=== PATIENT | female | born 1955 | race African-American/Black ===

== ENCOUNTER 2019-10-19 12:58 | Outpatient (CLI) | payer OTHER, BC, SELFPAY ==
--- NOTE | ~2019-10-19 | DEXA_ITS ---
Bone Density Report Name: Judy Martínez Age: 63 Sex: Female Ethnicity: Black Date of : 1955 Indication: postmenopausal; height loss; hysterectomy; Referring Provider: CRYSTAL HERRERA Study: Bone densitometry was performed. Exam Date: October 19, 2019 Accession number: [id number] Bone Density: Region BMD T-score Z-score Classification AP Spine (L1-L4) 0.926 -1.1 -0.3 Osteopenia Femoral Neck (Left) 0.759 -0.8 -0.2 Normal Total Hip (Left) 0.831 -0.9 -0.4 Normal Total Hip Bilateral Avg 0.819 -1.0 -0.5 Osteopenia Femoral Neck (Right) 0.740 -1.0 -0.3 Normal Total Hip (Right) 0.806 -1.1 -0.6 Osteopenia World Health Organization criteria for BMD impression classify patients as: Normal (T-score at or above -1.0), Osteopenia (T-score between -1.0 and -2.5), or Osteoporosis (T-score at or below -2.5). 10-year Fracture Risk(1): Major Osteoporotic Fracture 3.3% Hip Fracture 0.2% Reported Risk Factors: [place] ([place]), Neck BMD=0.740, BMI=30.6 (1) FRAX(R) Version 3.08. Fracture probability calculated for an untreated patient. Fracture probability may be lower if the patient has received treatment. Clinical Information Provided by Patient: Has the following medical conditions: Hysterectomy Patient maximum height was 67 Menopause Age: 42 No regular weight bearing exercise Drinks caffeinated beverages Onset of menses at age 14 Number of children 3 Impression: The patient has low bone mass, based on the Total Spine T-score. The patient has an estimated ten-year risk of hip fracture of 0.2% and an estimated ten-year risk of major fracture of 3.3%, based on the WHO FRAX algorithm. Discussion: BONE DENSITY IS LOW AT ONE OR MORE SKELETAL SITES. This patient's lowest T-score is low at one or more skeletal sites. It meets the World Health Organization's (WHO) criteria for ?low bone mass? (T-score between -1.0 and -2.5). The patient's 10-year risk of fracture as calculated by FRAX is less than the threshold where pharmacological therapy is recommended by the National Osteoporosis Foundation (NOF). However, all treatment decisions require clinical judgment and consideration of individual patient factors, including patient preferences, comorbidities, previous drug use, risk factors not captured in the FRAX model (e.g., frailty, falls, vitamin D deficiency, increased bone turnover, interval significant decline in bone density) and possible under or overestimation of fracture risk by FRAX. The patient should follow a healthful lifestyle (good nutrition with adequate calcium and vitamin D, and appropriate weight-bearing exercise). Follow-Up: Consider repeating this study in 2 to 3 years to reassess this patient's status, or sooner if there is some new clinical indication. Reported by: [facility] on 10/19/2019 1:28:00 PM. ____
== END 2019-10-19 12:59 | disposition home or self-care (01) ==
LOC: ANHIMG 13:05
PROVIDERS: Visit Provider Family Medicine
DX: M85.88 Other specified disorders of bone density and structure, other site (principal); M85.852 Other specified disorders of bone density and structure, left thigh; M85.851 Other specified disorders of bone density and structure, right thigh
CPT/HCPCS: 77080

== ENCOUNTER 2019-11-24 12:05 | Outpatient (CLI) | payer OTHER, BC, SELFPAY ==
[2019-11-24 12:29] LABS: Basophils Percent Auto 0.4 % (0.2-1.2); Eosinophils Absolute Auto 0.1 K/mm3 (0-0.3); Eosinophils Percent Auto 1.8 % (0-4.4); Hematocrit 42.5 % (37.0-47.0); Hemoglobin 13.5 g/dL (12.0-15.0); Immature Granulocyte Absolute 0.02 K/mm3 (0.00-0.031); Immature Granulocyte Percent A 0.3 % (0-0.5); Lymphocytes Absolute Auto 2.15 K/mm3 (0.9-3.2); Lymphocytes Percent Auto 29.9 % (18.3-44.2); Mean Corpuscular HGB Conc 31.8 g/dl (32-36); Mean Corpuscular Hemoglobin 26.7 pg (26-34); Mean Platelet Volume 9.8 fl (7.4-10.4); Monocytes Absolute Auto 0.4 K/mm3 (0.1-0.6); Neutrophils Absolute Auto 4.4 K/mm3 (1.3-6.7); Neutrophils Percent Auto 61.6 % (45.5-73.1); Platelet Count Result 290 k/mm3 (150-375); Red Blood Count 5.06 M/mm3 (4.2-5.4); White Blood Count 7.2 K/mm3 (4.5-10.0)
[2019-11-24 12:38] LABS: Hemoglobin A1C 7.7 % (<5.7)
[2019-11-24 12:41] LABS: Anion Gap 6 mmol/L (8-16); Blood Urea Nitrogen 15 mg/dL (7-17); Calcium 9.3 mg/dL (8.4-10.2); Carbon Dioxide 29 mmol/L (22-30); Chloride 100 mmol/L (98-107); Cholesterol 215 mg/dL (0-200); Estimated Glomerular Filt Rate > 60; Glucose 98 mg/dL (65-105); HDL Direct 64 mg/dL; Potassium 3.9 mmol/L (3.4-5.0); Sodium 135 mmol/L (137-145); Triglycerides 131 mg/dL (<150)
[2019-11-24 12:52] LABS: LDL Cholesterol Direct 108 mg/dL
[2019-11-24 12:57] LABS: MALB Creatinine Ratio 8.1 mg/g (0-30); Microalbumin Urine Random 9.4 mg/L (0-16.7)
== END 2019-11-24 12:06 | disposition home or self-care (01) ==
PROVIDERS: Visit Provider Family Medicine
DX: I10 Essential (primary) hypertension (principal); E11.65 Type 2 diabetes mellitus with hyperglycemia; Z13.220 Encounter for screening for lipoid disorders
CPT/HCPCS: 36415; 80048; 80061; 82043; 83036; 85025

== ENCOUNTER 2020-01-05 14:59 | Outpatient (CLI) | payer BC, OTHER, SELFPAY ==
--- NOTE | ~2020-01-05 | MM_ITS ---
EXAMINATION: MM screening raul BI w jerel HISTORY: Screening mammogram TECHNIQUE: Craniocaudal and mediolateral oblique 3-D tomosynthesis images were obtained and synthetic 2-D images were generated. CAD analysis was submitted and interpreted. COMPARISON: No prior mammogram is available for comparison at this institution. BREAST PARENCHYMAL COMPOSITION: There are scattered areas of fibroglandular density. FINDINGS: There is no evidence of suspicious mass, calcification, or architectural distortion to sugg est malignancy in either breast. There has been no suspicious interval change. IMPRESSION: 1. No mammographic evidence of malignancy. 2. Recommend routine screening mammography in one year. BI-RADS Category 1: Negative Reviewed, dictated and finalized at location A.
== END 2020-01-05 15:00 | disposition home or self-care (01) ==
LOC: ANHIMG 15:01
PROVIDERS: Visit Provider Family Medicine
DX: Z12.31 Encounter for screening mammogram for malignant neoplasm of breast (principal)
CPT/HCPCS: 77063; 77067

== ENCOUNTER 2020-03-23 22:15 | Emergency (ER) | payer OTHER, BC, SELFPAY ==
--- NOTE | ~2020-03-23 | XR_ITS ---
EXAMINATION: XR abdomen/kub 1V INDICATION: Abdominal fullness TECHNIQUE: Supine views of the abdomen were obtained on 2 radiographs. COMPARISON: 09/17/2010 FINDINGS: A large volume of colonic stool is present. No dilated loops of bowel are evident. Lumbar l evocurvature is noted. The visualized lung bases are clear. There is moderate right and severe left h ip osteoarthritis. IMPRESSION: 1. Constipation. Reviewed, dictated and finalized at location A. ZING MACHINE BACK TENDER IMPRESSION: 1. Constipation.
--- NOTE | ~2020-03-23 | XR_ITS ---
EXAMINATION: XR chest 1V INDICATION: Shortness of breath TECHNIQUE: Portable AP chest at 2257 hours COMPARISON: 09/14/2018 FINDINGS: The lungs are free of acute opacities. The heart size is normal. There is no pleural effusi on or pneumothorax. IMPRESSION: 1. No acute cardiopulmonary abnormality. Reviewed, dictated and finalized at location A. MARKER
[2020-03-23 22:21] VITALS: BP 164/87; PULSE 75; RESP 18; O2SAT 98
--- NOTE | 2020-03-23 22:23 | ED.GENADULT ---
HPI - General Adult General Chief complaint: Shortness of Breath/Dyspnea <Nadeen Wellington PA-C - Last Filed: 03/24/20 00:04> Stated complaint: sob <Nadeen Wellington PA-C - Last Filed: 03/24/20 00:04> Time Seen by Provider: 03/23/20 22:20 <Nadeen Wellington PA-C - Last Filed: 03/24/20 00:04> History of Present Illness HPI narrative: 64-year-old female who is here because she has for the past 24 hours felt like she could not catch her breath. She states that she was afraid to lie flat to sleep. She has been sleeping propped on 3 pillows for at least a year she says because she lost a friend who in his sleep and she was afraid that would happen to her. But today she fell that she really could not lay flat. She also noted that her blood sugar did not go down after she took her medicine today. She denies any fever, cough, wheezing, or chest pain. She is also complaining of increased fullness in her abdomen. She is urinating and had a normal bowel movement this morning. <Nadeen Wellington PA-C - Last Filed: 03/24/20 00:04> Onset (ago): hour(s) <Nadeen Wellington PA-C - Last Filed: 03/24/20 00:04> Treatments prior to arrival: none <KOBE Teran Last Filed: 03/24/20 00:04> Related Data Home medications: Home Medications Medication Instructions Recorded Confirmed albuterol sulfate 90 mcg/actuation 1 puff INHALATION Q4H PRN 05/17/19 12/27/19 aerosol inhaler carvedilol 12.5 mg tablet 12.5 mg PO Q12H 05/17/19 12/27/19 <KOBE Teran Last Filed: 03/24/20 00:04> Allergies/adverse reactions: Allergies Allergy/AdvReac Type Severity Reaction Status Date / Time No Known Allergies Allergy Verified 10/08/19 10:24 <KOBE Teran Last Filed: 03/24/20 00:04> Review of Systems Review of Systems: All systems reviewed & are unremarkable except as noted in HPI and below <Nadeen Wellington PA-C - Last Filed: 03/24/20 00:04> [facility] Past Medical History Medical History: Medical History (Updated 03/24/20 @ 00:03 by Nadeen Wellington PA-C) Essential (primary) hypertension Type 2 diabetes mellitus with hyperglycemia <Nadeen Wellington PA-C - Last Filed: 03/24/20 00:04> Family History Family History: Family History Mother Cerebrovascular accident Father Family history of heart disease in male family member before age 55 <Nadeen Wellington PA-C - Last Filed: 03/24/20 00:04> Social History Social History: Social History (Updated 03/23/20 @ 22:46 by Nadeen Wellington PA-C) Smoking status: Never smoker Alcohol intake: current Substance use: never Occupation/Education: occupation 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 Gender identity (if verbalized by the patient): Female <Nadeen Wellington PA-C - Last Filed: 03/24/20 00:04> Exam Const: General: no acute distress and alert <Nadeen Wellington PA-C - Last Filed: 03/24/20 00:04> Orientation/consciousness: patient oriented x3 <Nadeen Wellington PA-C - Last Filed: 03/24/20 00:04> HENMT: Head: normal to inspection <Nadeen Wellington PA-C - Last Filed: 03/24/20 00:04> Eyes: Conjunctivae: conjunctivae normal <Nadeen Wellington PA-C - Last Filed: 03/24/20 00:04> Pupils: Equal, round and reactive pupils present <Nadeen Wellington PA-C - Last Filed: 03/24/20 00:04> Resp: Effort & Inspection: normal respiratory effort <Nadeen Wellington PA-C - Last Filed: 03/24/20 00:04> Auscultation: diminished lung sounds on the right in the lower lung castro <Nadeen Wellington PA-C - Last Filed: 03/24/20 00:04> Other: otherwise clear <Nadeen Wellington PA-C - Last Filed: 03/24/20 00:04> Cardio: Rate: regular rate <Nadeen Wellington PA-C - Last Filed: 03/24/20 00:04> Rhythm: regular rhythm <KOBE Teran Last Filed: 03/24/20 00:04> GI: Inspection: distended <KOBE Teran Last Filed:
[2020-03-23 22:28] VITALS: O2SAT 98
--- NOTE | 2020-03-23 22:42 | ECG_ITS ---
Measurements Intervals [place] Rate: 67 P: 38 WA: 171 QRS: 0 QRSD: 101 T: 47 QT: 399 QTc: 421 Interpretive Statements SINUS RHYTHM BORDERLINE ST ABNORMALITY- HIGH LATERAL LEADS BASELINE WANDER- I, II BORDERLINE ECG Electronically Signed On 03-24-2020 6:57:09 VACUUM CLEANER OPERATOR by Rubén Ramirez D.O.
[2020-03-23 22:52] LABS: Basophils Percent Auto 0.4 % (0.2-1.2); Eosinophils Absolute Auto 0.2 K/mm3 (0-0.3); Eosinophils Percent Auto 2.3 % (0-4.4); Hematocrit 39.7 % (37.0-47.0); Hemoglobin 12.7 g/dL (12.0-15.0); Immature Granulocyte Absolute 0.02 K/mm3 (0.00-0.031); Immature Granulocyte Percent A 0.3 % (0-0.5); Lymphocytes Absolute Auto 2.94 K/mm3 (0.9-3.2); Lymphocytes Percent Auto 38.2 % (18.3-44.2); Mean Corpuscular Hemoglobin 26.5 pg (26-34); Mean Corpuscular Volume 82.7 fl (80-100); Mean Platelet Volume 9.4 fl (7.4-10.4); Monocytes Absolute Auto 0.7 K/mm3 (0.1-0.6); Monocytes Percent Auto 9.1 % (2.6-8.5); Neutrophils Absolute Auto 3.8 K/mm3 (1.3-6.7); Neutrophils Percent Auto 49.7 % (45.5-73.1); Platelet Count Result 299 k/mm3 (150-375); Red Cell Distribution Width 13.2 % (11.5-14.5); White Blood Count 7.7 K/mm3 (4.5-10.0)
[2020-03-23 23:00] VITALS: BP 150/81; PULSE 82; RESP 19; O2SAT 97
[2020-03-23 23:06] LABS: Alanine Aminotransferase 19 U/L (4-35); Albumin Level 3.8 g/dL (3.5-5.1); Alkaline Phosphatase 83 U/L (38-126); Anion Gap 8 mmol/L (8-16); Aspartate Amino Transferase 23 U/L (14-36); Bilirubin,Total 0.2 mg/dL (0.2-1.3); Blood Urea Nitrogen 16 mg/dL (7-17); Calcium 9.7 mg/dL (8.4-10.2); Carbon Dioxide 29 mmol/L (22-30); Chloride 102 mmol/L (98-107); Estimated CRCL calculation 77 ml/min; Estimated Glomerular Filt Rate > 60; Glucose 178 mg/dL (65-105); Sodium 139 mmol/L (137-145)
[2020-03-23 23:30] VITALS: BP 148/79; PULSE 74; RESP 17; O2SAT 98
[2020-03-23 23:33] VITALS: PULSE 75; RESP 14
[2020-03-23] MEDS: ALBUTEROL SULFATE NEB 2.5 MG/3 ML INH INHALATION (23:33)
[2020-03-23 23:43] VITALS: PULSE 76; RESP 18
[2020-03-24] VITALS: BP 172/85; PULSE 87; RESP 18; O2SAT 98
== END 2020-03-24 00:15 | disposition home or self-care (01) ==
PROVIDERS: Physician Assistant; Emergency Provider Emergency Medicine; PCP Family Medicine
DX: R09.81 Nasal congestion (principal); E11.65 Type 2 diabetes mellitus with hyperglycemia; I10 Essential (primary) hypertension; Z79.84 Long term (current) use of oral hypoglycemic drugs; R94.31 Abnormal electrocardiogram [ECG] [EKG]
CPT/HCPCS: 36415; 71045; 74018; 80053; 85025; 93005; 94640; 99283

== ENCOUNTER → 2020-05-18 09:39 | Outpatient (CLI) | payer OTHER, BC, SELFPAY ==
--- NOTE | ~2020-05-18 | XR_ITS ---
XR foot RT min 3V DATE: 05/18/2020 10:03 INDICATION: Right foot pain TECHNIQUE: 4 views COMPARISON: None FINDINGS: Plantar calcaneal enthesopathy, without erosive change or periostitis. Prominent joint space narrowing and spurring at the first metatarsophalangeal joint consistent with o steoarthritis. Diffuse osteopenia. No fracture, dislocation, periosteal reaction or bone destruction. IMPRESSION: Osteopenia Osteoarthritis at first metatarsophalangeal joint Plantar calcaneal enthesopathy Reviewed, dictated and finalized at location A. T FINISHER
== END ==
PROVIDERS: PCP Family Medicine; Visit Provider Family Medicine
DX: M85.871 Other specified disorders of bone density and structure, right ankle and foot (principal); M77.31 Calcaneal spur, right foot; M19.071 Primary osteoarthritis, right ankle and foot
CPT/HCPCS: 73630

== ENCOUNTER → 2020-10-11 14:24 | Outpatient (CLI) | payer BC, OTHER, SELFPAY ==
--- NOTE | ~2020-10-11 | XR_ITS ---
EXAMINATION: XR hip LT min 3V w AP pelvis DATE: 10/11/2020 14:43 INDICATION: Left hip pain. TECHNIQUE: An anteroposterior view of the pelvis and 2 views of left hip were obtained. COMPARISON: Left hip radiographs 11/22/2015 FINDINGS: There is lumbar levocurvature and mild spondylosis. No fracture. There is severe left hip o steoarthritis and mild right hip osteoarthritis. IMPRESSION: 1. Severe left hip osteoarthritis and mild right hip osteoarthritis. Reviewed, dictated and finalized at location A.
== END ==
PROVIDERS: PCP Family Medicine; Visit Provider Nurse Practitioner Family
DX: M16.12 Unilateral primary osteoarthritis, left hip (principal)
CPT/HCPCS: 73502

== ENCOUNTER 2021-02-16 14:31 | Outpatient (CLI) | payer BC, OTHER, SELFPAY ==
[2021-02-16 15:10] LABS: Anion Gap 11 mmol/L (8-16); Blood Urea Nitrogen 17 mg/dL (7-17); Calcium 9.6 mg/dL (8.4-10.2); Carbon Dioxide 22 mmol/L (22-30); Chloride 104 mmol/L (98-107); Cholesterol 217 mg/dL (0-200); Estimated Glomerular Filt Rate > 60; Glucose 227 mg/dL (65-110); HDL Direct 74 mg/dL; Potassium 4.4 mmol/L (3.4-5.0); Sodium 137 mmol/L (137-145); Triglycerides 285 mg/dL (<150)
[2021-02-16 15:11] LABS: Hemoglobin A1C 7.9 % (<5.7)
[2021-02-16 15:21] LABS: LDL Cholesterol Direct 82 mg/dL
== END 2021-02-16 14:32 | disposition home or self-care (01) ==
LOC: ANHLAB 14:34
PROVIDERS: PCP Family Medicine; Visit Provider Family Medicine
DX: E11.65 Type 2 diabetes mellitus with hyperglycemia (principal); I10 Essential (primary) hypertension; Z13.220 Encounter for screening for lipoid disorders
CPT/HCPCS: 36415; 80048; 80061; 83036

== ENCOUNTER 2021-09-25 07:17 | Outpatient (RCR) | payer BC, OTHER, SELFPAY | END 2021-12-11 10:41 | disposition home or self-care (01) | LOC: ANHDMC 07:17 | PROVIDERS: PCP Family Medicine; Visit Provider Family Medicine | DX: E11.65 Type 2 diabetes mellitus with hyperglycemia (principal) | CPT/HCPCS: 99199 ==

== ENCOUNTER 2022-01-31 15:34 | Outpatient (CLI) | payer BC, SELFPAY ==
--- NOTE | 2022-01-31 16:05 | ECG_ITS ---
Measurements Intervals [place] Rate: 68 P: 37 UT: 160 QRS: 17 QRSD: 95 T: 41 QT: 393 QTc: 420 Interpretive Statements SINUS RHYTHM NORMAL ECG COMPARED TO ECG 03/23/2020 23:08:39 NO SIGNIFICANT CHANGES Electronically Signed On 02-01-2022 13:52:00 CDT by Andry Howard M.D.
[2022-01-31 16:10] LABS: Hematocrit 40.8 % (37.0-47.0); Hemoglobin 12.9 g/dL (12.0-15.0)
[2022-01-31 16:25] LABS: Albumin Level 4.1 g/dL (3.5-5.1); Estimated Glomerular Filt Rate > 60; Glucose 178 mg/dL (65-110)
[2022-01-31 16:31] LABS: Urine Cotinine NEGATIVE
[2022-01-31 17:27] LABS: Hemoglobin A1C 8.7 % (<5.7)
== END 2022-01-31 15:35 | disposition home or self-care (01) ==
PROVIDERS: PCP Family Medicine; Visit Provider Orthopaedic Surgery
DX: M16.12 Unilateral primary osteoarthritis, left hip (principal); E11.65 Type 2 diabetes mellitus with hyperglycemia; I10 Essential (primary) hypertension; Z13.220 Encounter for screening for lipoid disorders
CPT/HCPCS: 80307; 82040; 82565; 82947; 83036; 85014; 85018; 93005

== ENCOUNTER 2022-07-24 10:39 | Outpatient (RCR) | payer BC, MEDICARE, SELFPAY | END 2022-10-14 08:51 | disposition home or self-care (01) | LOC: ANHDMC 10:39 | PROVIDERS: PCP Family Medicine; Visit Provider Family Medicine | DX: E11.65 Type 2 diabetes mellitus with hyperglycemia (principal); Z71.89 Other specified counseling | CPT/HCPCS: G0108 ==

== ENCOUNTER 2022-09-03 13:47 | Emergency (ER) | payer BC, MEDICARE, SELFPAY ==
--- NOTE | ~2022-09-03 | XR_ITS ---
EXAMINATION: XR knee LT min 4V DATE: 09/03/2022 14:35 INDICATION: Left knee pain. TECHNIQUE: 4 views of left knee were obtained. COMPARISON: None. FINDINGS: Bone alignment is normal. No fracture. There is mild osteoarthritis of medial and lateral c ompartments and moderate osteoarthritis of patellofemoral compartment. There is a moderate-sized knee joint effusion. IMPRESSION: 1. Moderate left knee osteoarthritis. 2. Moderate-sized left knee joint effusion. Reviewed, dictated and finalized at location A.
[2022-09-03 14:03] VITALS: BP 142/79; PULSE 87; RESP 20; TEMP 36.2; O2SAT 97
--- NOTE | 2022-09-03 15:25 | ED.EXTPRO ---
HPI - Extremity Problem General Chief complaint: Extremity Problem,Nontraumatic Stated complaint: left knee swelling Time Seen by Provider: 09/03/22 15:03 Source: patient Mode of arrival: ambulatory Limitations: no limitations History of Present Illness HPI Narrative: 66-year-old with a history of diabetes, osteoarthritis here with complaints of left knee pain for past 1 week patient states that she is scheduled for hip surgery on the left side now having more pain in her knee she thinks she is favoring the knee. She denies any fall. Patient states that she has been taking ibuprofen, Tylenol with very minimal relief. She states that she is having tough time walking. Complaint: joint paint (Left knee) Related Data Allergies Allergy/AdvReac Type Severity Reaction Status Date / Time No Known Allergies Allergy Verified 08/23/22 09:39 Review of Systems Review of Systems: All systems reviewed & are unremarkable except as noted in HPI and below Constitutional: Constitutional: Reports no additional constitutional complaints Eyes: Eyes: Reports no additional eye complaints ENT: Reports system reviewed and no additional complaints, except as documented Cardiovascular: Cardiovascular: Reports no additional cardiovascular complaints Respiratory: Respiratory: Reports no additional respiratory complaints Musculoskeletal: Musculoskeletal: Reports as per HPI Neurologic: Reports system reviewed and no additional complaints, except as documented PMFSH Past Medical History Medical History BMI 26.0-26.9,adult BMI 28.0-28.9,adult BMI 29.0-29.9,adult Constipation COVID-19 Essential (primary) hypertension PTSD (post-traumatic stress disorder) Right foot pain Type 2 diabetes mellitus with hyperglycemia Family History Family History Mother Cerebrovascular accident Cancer Tobacco abuse Father Family history of heart disease in male family member before age 55 Lung cancer Tobacco abuse Sibling No problems noted. Social History Social History Smoking status: Never smoker Second hand tobacco smoke exposure: Yes Alcohol intake: current Alcohol use details: 1-2 drinks per week. 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 HEAD: Normocephalic, atraumatic. EYES: PERRLA and EOMI. NECK: Supple. CHEST: Clear to auscultation. No respiratory distress. HEART: Regular rate and rhythm. No murmur heard. Normal peripheral pulses. EXTREMITIES: Normal range of motion. No edema. Examination of the left knee shows mild effusion moderate amount of pain with passive range of motion SKIN: Warm, dry, no rash. NEURO: No focal deficits. Alert and oriented x3. PSYCH: Normal mood and affect. Course Vital Signs Vital signs: Vital Signs Temperature 36.2 C L 09/03/22 14:03 Pulse Rate 87 09/03/22 14:03 Respiratory Rate 20 09/03/22 14:03 Blood Pressure 142/79 H 09/03/22 14:03 Pulse Oximetry 97 09/03/22 14:03 Oxygen Delivery Room Air 09/03/22 14:03 Temperature 36.2 C L 09/03/22 14:03 Pulse Rate 87 09/03/22 14:03 Respiratory Rate 20 09/03/22 14:03 Blood Pressure 142/79 H 09/03/22 14:03 Pulse Oximetry 97 09/03/22 14
== END 2022-09-03 15:50 | disposition home or self-care (01) ==
PROVIDERS: Emergency Provider Family Medicine; PCP Family Medicine
DX: M17.12 Unilateral primary osteoarthritis, left knee (principal); I10 Essential (primary) hypertension; E11.9 Type 2 diabetes mellitus without complications; Z86.16 Personal history of COVID-19; Z79.84 Long term (current) use of oral hypoglycemic drugs
CPT/HCPCS: 73564; 99283

== ENCOUNTER 2022-11-18 14:07 | Outpatient (CLI) | payer BC, MEDICARE, SELFPAY ==
--- NOTE | ~2022-11-18 | XR_ITS ---
EXAM: XR shoulder RT min 2V DATE: 11/18/2022 14:28 HISTORY: HX OF ROTATOR CUFF SURGERY/LIFTING INJURY 5 DAYS AGO . COMPARISON: 05/31/2016. FINDINGS: Soft tissue anchor in the proximal humerus. Decreased mineralization. Notch-like defect in the superolateral aspect of the humeral head, may represent an old Hill-Sachs fracture deformity claudia tomi degenerative change. No acute fracture or dislocation. No lytic or blastic lesion. Moderate AC janeen int and glenohumeral joint degenerative change. Calcific deposition in the superior cuff. No erosion or periosteal change. Soft tissues within normal limits. IMPRESSION: No acute osseous finding in the right shoulder. Polyarticular osteoarthritis and calcific rotator cuff tendinitis. Reviewed, dictated and finalized at location K.
== END 2022-11-18 14:08 | disposition home or self-care (01) ==
LOC: ANHIMG 14:10
PROVIDERS: PCP Family Medicine; Visit Provider Nurse Practitioner Family
DX: S49.90XA Unspecified injury of shoulder and upper arm, unspecified arm, initial encounter (principal); X58.XXXA Exposure to other specified factors, initial encounter; M19.011 Primary osteoarthritis, right shoulder
CPT/HCPCS: 73030

== ENCOUNTER 2022-12-25 14:55 | Outpatient (CLI) | payer BC, MEDICARE, SELFPAY ==
[2022-12-25 15:35] LABS: Alanine Aminotransferase 20 U/L (6-35); Albumin Level 4.2 g/dL (3.5-5.1); Alkaline Phosphatase 73 U/L (38-126); Anion Gap 4 mmol/L (8-16); Aspartate Amino Transferase 24 U/L (14-36); Bilirubin,Total 0.5 mg/dL (0.2-1.3); Blood Urea Nitrogen 15 mg/dL (7-17); Calcium 9.4 mg/dL (8.4-10.2); Carbon Dioxide 29 mmol/L (22-30); Chloride 105 mmol/L (98-107); Cholesterol 206 mg/dL (0-200); Estimated Glomerular Filt Rate > 60; Glucose 143 mg/dL (65-110); HDL Direct 65 mg/dL; Potassium 3.9 mmol/L (3.4-5.0); Sodium 138 mmol/L (137-145); Triglycerides 91 mg/dL (<150)
[2022-12-25 15:46] LABS: LDL Cholesterol Direct 95 mg/dL
[2022-12-25 16:31] LABS: Creatinine Urine 266.6 mg/dL
[2022-12-25 16:35] LABS: Microalbumin Urine Random 27.8 mg/L (0-16.7)
[2022-12-25 16:36] LABS: MALB Creatinine Ratio 10.4 mg/g (0-30)
[2022-12-31 18:20] LABS: C-Peptide 2.22 ng/mL (0.80-3.85)
== END 2022-12-25 14:56 | disposition home or self-care (01) ==
PROVIDERS: PCP Family Medicine; Visit Provider Internal Medicine
DX: E11.65 Type 2 diabetes mellitus with hyperglycemia (principal)
CPT/HCPCS: 36415; 80053; 80061; 82043; 84681

== ENCOUNTER 2023-09-23 02:28 | Day surgery (SDC) | payer OTHER, MEDICARE, SELFPAY ==
[2023-09-16 10:58] VITALS: BMI 28.2
[2023-09-23 11:05] VITALS: BP 152/91; PULSE 94; RESP 18; TEMP 36.6; O2SAT 100
[2023-09-23] MEDS: LACTATED RINGERS 1,000 ML 150 ML IV CONT (11:16)
[2023-09-23 11:19] LABS: Glucose Point of Care 103 mg/dl (65-105)
--- NOTE | 2023-09-23 12:07 | WPDANESEPPF ---
Anes - Initial Pre Proc Eval Procedure: Operation Date: 09/23/23 12:30 Proposed Procedures p Screening Colonoscopy - Dany Godinez MD Date/Time: 09/23/23 12:07 Surgeon: Dany Godinez MD Pre Op Diagnosis: neoplasm screening Patient Data Age: 67 Gender: F Height: 1.7 m Weight: 76 kg Last Vital Signs Temp 97.8 F 09/23/23 11:05 Pulse 94 09/23/23 11:05 Resp 18 09/23/23 11:05 BP 152/91 H 09/23/23 11:05 Pulse Ox 100 09/23/23 11:05 O2 Del Method Room Air 09/23/23 11:05 Allergies Allergy/AdvReac Type Severity Reaction Status Date / Time No Known Allergies Allergy Verified 09/23/23 11:03 Home Medications Medication Instructions Recorded Confirmed Type lancets (Coaguchek Lancets) #400 ea 12/25/22 06/17/23 Rx atorvastatin 20 mg tablet (Lipitor) 20 mg PO DAILY #90 tabs 06/17/23 09/16/23 Rx dapagliflozin propanediol 10 mg 10 mg PO DAILY #90 tabs 06/17/23 09/16/23 Rx tablet (Farxiga) lisinopril 2.5 mg tablet 2.5 mg PO DAILY #90 tabs 06/17/23 09/16/23 Rx tirzepatide 7.5 mg/0.5 mL 7.5 mg (0.5 mL) subcut WEEKLY #6 mL 07/08/23 09/23/23 Rx subcutaneous pen injector (Mounjaro) Laboratory Tests 09/23/23 11:11 POC Capillary Glucose 103 mg/dl (65-105) Patient hx anesthesia problems: none Family hx anesthesia problems: none Results Review: All pre-operative results and documents have been reviewed as part of the pre-operative evaluation. [facility] Past Medical History Medical History BMI 25.0-25.9,adult BMI 29.0-29.9,adult Constipation COVID-19 Essential (primary) hypertension Osteoarthritis of left knee PTSD (post-traumatic stress disorder) Right foot pain Type 2 diabetes mellitus with hyperglycemia Surgical History Surgical History History of bilateral salpingo-oophorectomy History of hysterectomy Family History Family History Mother Cancer Tobacco abuse Acute myocardial infarction Heart disease Hypertension Father Family history of heart disease in male family member before age 55 Lung cancer Tobacco abuse Sibling No problems noted. 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 Informed Consent: The patient's anesthetic plan and its attendant risks and benefits were discussed with the patient/family/POA. Questions were solicited and answers provided to the satisfaction of the patient/family/POA.
--- NOTE | 2023-09-23 12:14 | PM.HPGS ---
History of Present Illness History of Present Illness Consent: Risks, benefits, and alternatives have been discussed and questions answered. Patient agrees to proceed with procedure. Chief complaint: neoplasm screening Narrative: Judy Martínez is a 67 year old female here for colonoscopy, last one more than 10 years ago Review of Systems Review of Systems: All systems reviewed & are unremarkable except as noted in HPI and below PMFSH Past Medical History Medical History (Updated 09/23/23 @ 12:15 by Dany Godinez MD) BMI 25.0-25.9,adult BMI 29.0-29.9,adult Colon cancer screening Constipation COVID-19 Essential (primary) hypertension Osteoarthritis of left knee PTSD (post-traumatic stress disorder) Right foot pain Type 2 diabetes mellitus with hyperglycemia Surgical History Surgical History History of bilateral salpingo-oophorectomy History of hysterectomy Family History Family History Mother Cancer Tobacco abuse Acute myocardial infarction Heart disease Hypertension Father Family history of heart disease in male family member before age 55 Lung cancer Tobacco abuse Sibling No problems noted. 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[place] Gender identity (if verbalized by the patient): Female Spiritual care concerns: No Meds Home Medications and Allergies Home Medications Medication Instructions Recorded Confirmed Type lancets (Coaguchek Lancets) #400 ea 12/25/22 06/17/23 Rx atorvastatin 20 mg tablet (Lipitor) 20 mg PO DAILY #90 tabs 06/17/23 09/16/23 Rx dapagliflozin propanediol 10 mg 10 mg PO DAILY #90 tabs 06/17/23 09/16/23 Rx tablet (Farxiga) lisinopril 2.5 mg tablet 2.5 mg PO DAILY #90 tabs 06/17/23 09/16/23 Rx tirzepatide 7.5 mg/0.5 mL 7.5 mg (0.5 mL) subcut WEEKLY #6 mL 07/08/23 09/23/23 Rx subcutaneous pen injector (Mounjaro) Allergies Allergy/AdvReac Type Severity Reaction Status Date / Time No Known Allergies Allergy Verified 09/23/23 11:03 Vital Signs Vital Signs - 24 hr 09/23/23 11:05 Temperature 97.8 F Pulse Rate 94 Respiratory Rate 18 Blood Pressure 152/91 H Pulse Oximetry 100 Oxygen Delivery Room Air Exam Const: General: comfortable and no acute distress HENMT: Face/Nose/Sinus: Normal nares present Eyes: General: appearance normal, both eyes and all related structures Neck: Neck: no JVD Resp: Auscultation: clear to auscultation bilaterally Cardio: Rate: regular rate Rhythm: regular rhythm GI: Inspection: non-distended GI Palp: Yes Soft to palpation Skin: General skin exam: normal color Neuro: General: gait normal Speech: normal speech Extrem: General: normal to inspection Psych: Mental Status: mental status grossly normal Assessment and Plan Assessment and plan (1) Colon cancer screening: Code(s): Z12.11 - Encounter for screening for malignant neoplasm of colon Status: Acute Assessment and Plan: colonoscopy
[2023-09-23 12:42] VITALS: BP 116/65; PULSE 87; RESP 15; O2SAT 98
[2023-09-23 12:52] VITALS: BP 122/73; PULSE 80; RESP 20; O2SAT 100
[2023-09-23 13:02] VITALS: BP 151/82; PULSE 81; RESP 19; O2SAT 100
== END 2023-09-23 13:25 | disposition home or self-care (01) ==
PROVIDERS: PCP Family Medicine; Referring Provider Family Medicine; Visit Provider Internal Medicine Gastroenterology
PROC: 0DJD8ZZ Inspection of Lower Intestinal Tract, Via Natural or Artificial Opening Endoscopic (ICD-10-PCS; CPT 45378; principal; 2023-09-23 12:30)
DX: Z12.11 Encounter for screening for malignant neoplasm of colon (principal); D01.0 Carcinoma in situ of colon; D12.2 Benign neoplasm of ascending colon; D12.3 Benign neoplasm of transverse colon; D12.4 Benign neoplasm of descending colon; K64.8 Other hemorrhoids; I10 Essential (primary) hypertension; E11.9 Type 2 diabetes mellitus without complications; Z79.84 Long term (current) use of oral hypoglycemic drugs; Z79.85 Long-term (current) use of injectable non-insulin antidiabetic drugs
CPT/HCPCS: 45380; 45385; 82948; 88305; J2405; J2704; J7120

== ENCOUNTER 2023-10-09 09:36 | Outpatient (CLI) | payer OTHER, MEDICARE, SELFPAY ==
--- NOTE | 2023-10-09 10:57 | ECG_ITS ---
Test Date: 2023-10-09 11:12:55 Measurements Intervals [place] Rate: 73 P: 20 NE: 172 QRS: -12 QRSD: 96 T: 34 QT: 380 QTc: 420 Interpretive Statements SINUS RHYTHM No previous ECG available for comparison Electronically Signed On 10-09-2023 13:37:59 CDT by Sarahy Hurtado M.D.
[2023-10-09 12:04] LABS: Carcinoembryonic Antigen 6.3 ng/mL (0.0-3.0)
[2023-10-09 12:58] LABS: Hemoglobin A1C 6.9 % (<5.7)
== END 2023-10-09 09:37 | disposition home or self-care (01) ==
PROVIDERS: PCP Family Medicine; Visit Provider Surgery
DX: Z01.818 Encounter for other preprocedural examination (principal); D01.0 Carcinoma in situ of colon; K63.89 Other specified diseases of intestine; E11.65 Type 2 diabetes mellitus with hyperglycemia; I10 Essential (primary) hypertension
CPT/HCPCS: 36415; 80053; 82378; 83036; 85027; 86850; 86900; 86901; 93005

== ENCOUNTER 2023-10-09 09:46 | Outpatient (CLI) | payer OTHER, MEDICARE, SELFPAY ==
[2023-10-09 11:20] LABS: Hematocrit 40.5 % (37.0-47.0); Hemoglobin 12.8 g/dL (12.0-15.0); Mean Corpuscular HGB Conc 31.6 g/dl (32-36); Mean Corpuscular Hemoglobin 27.4 pg (26-34); Mean Corpuscular Volume 86.5 fl (80-100); Mean Platelet Volume 9.4 fl (7.4-10.4); Platelet Count Result 348 k/mm3 (150-375); Red Blood Count 4.68 M/mm3 (4.2-5.4); Red Cell Distribution Width 13.7 % (11.5-14.5)
[2023-10-09 11:34] LABS: Alanine Aminotransferase 13 U/L (6-35); Albumin Level 4.6 g/dL (3.5-5.1); Alkaline Phosphatase 79 U/L (38-126); Anion Gap 7 mmol/L (4-12); Aspartate Amino Transferase 20 U/L (14-36); Bilirubin,Total 0.3 mg/dL (0.2-1.3); Blood Urea Nitrogen 15 mg/dL (7-17); Calcium 9.3 mg/dL (8.4-10.2); Carbon Dioxide 27 mmol/L (22-30); Chloride 106 mmol/L (98-107); Estimated Glomerular Filt Rate > 60; Glucose 113 mg/dL (65-110); Potassium 4.5 mmol/L (3.4-5.0); Sodium 140 mmol/L (137-145)
== END 2023-10-09 09:47 | disposition home or self-care (01) ==
PROVIDERS: PCP Family Medicine; Visit Provider Internal Medicine Gastroenterology
DX: K63.89 Other specified diseases of intestine (principal)
CPT/HCPCS: 36415; 80053; 85027

== ENCOUNTER 2023-10-10 06:58 | Outpatient (CLI) | payer OTHER, MEDICARE, SELFPAY ==
--- NOTE | ~2023-10-10 | CT_ITS ---
EXAMINATION: CT abdomen pelvis w con DATE: 10/10/2023 07:54 INDICATION: Other specified disease of the intestines TECHNIQUE: Computed tomography (CT) of the abdomen and pelvis was performed with 100 mL Omnipaque-350 intravenous contrast. Automated exposure control and iterative reconstruction technique were employe d. The dose-length product was 513.85 mGy-cm. COMPARISON: None FINDINGS: Lung bases are clear. Heart size is normal. No pericardial or pleural effusion. Liver, gallbladder, s pleen, pancreas, bilateral adrenal glands and left kidney are normal. 6 mm right renal cyst. Bladder is normal. The uterus is not identified and has likely been surgically resected. Bilateral adnexa are unremarkable. Nonuniform masslike wall thickening at the tip of the cecum concerning for malignancy. Remainder of the bowels including the appendix are normal. No free intraperitoneal gas or fluid. No pathologically enlarged abdominal or pelvic lymphadenopathy. Mild thoracolumbar curvature with mild s pondylosis. IMPRESSION: 1. Masslike wall thickening at the tip the cecum concerning for colon cancer. No evident metastatic d isease. Reviewed, dictated and finalized at location B. IMPRESSION: 1. Masslike wall thickening at the tip the cecum concerning for colon cancer. N o evident metastatic disease.
== END 2023-10-10 06:59 | disposition home or self-care (01) ==
PROVIDERS: PCP Family Medicine; Visit Provider Internal Medicine Gastroenterology
DX: K63.89 Other specified diseases of intestine (principal)
CPT/HCPCS: 74177; Q9967

== ENCOUNTER 2023-10-15 07:48 | Inpatient (IN) | payer OTHER, MEDICARE, SELFPAY ==
[2023-10-09 10:01] VITALS: BP 1473/75; PULSE 78; RESP 16; TEMP 36.8; O2SAT 99; BMI 26.2
--- NOTE | 2023-10-09 10:21 | PC.NURSE ---
Report to the Outpatient Waiting Room, entrance under the green pavilion located off [facility], at time __6:00AM on date __10/15/23 . Planned Procedure Time: ___7:30AM . Time changes happen often and if your time is changed the preop area will call you the afternoon before. - You and your visitor will be asked to self-screen and do not enter if you have any COVID symptoms. - A mask is optional within the hospital at this time. BOWEL PREP DAY BEFORE SURGERY PER DR KELLY. Patients may have clear liquids (water, carbonated beverages, clear teas, apple juice) until 3 hours prior to surgery with a maximum of 20 ounces. TAKE ANTIBIOTICS ON THE DAY BEFORE SURGERY PER DR KELLY- [phone] CIPRO 1 TABLET AT 2:00PM METRONIDAZOLE 1 TABLET AT 1:00PM, 2:00PM & 11:00PM Take the following medications with a SIP of water the morning of surgery: ___NONE DO NOT STOP ANY OF YOUR OTHER PRESCRIPTION MEDICATIONS PRIOR TO SURGERY ?EXCEPT THE FOLLOWING Medications to discontinue per physician ___NONE Date to take last dose Please no make-up, nail spanish, hairspray, perfume, deodorant, or body powder the day of surgery. No jewelry (including any body piercings) or valuables the day of surgery, leave them at home. Please take a shower or bath the night before, or the morning of, surgery with an antibacterial soap. Wear comfortable, loose fitting clothing. - Jewelry must be removed prior to entering the operating room. Rings and piercings that are not removed may be cut off. - The hospital will not accept responsibility for valuables. - Please leave all valuables, including medications, at home the day of surgery. If you are going home after surgery, a licensed airport driver must drive you home. - NO public transportation without another adult if you receive anesthesia. - We recommend that an adult stay with you for 24 hours following discharge. - We also recommend that you do not drive, make important decision, drink alcoholic beverages, or take any drugs that were not prescribed by your health care provider for at least 24 hours after your discharge time. Follow any additional instructions given to you from your surgeon. ENSURE BUNDLE BOWEL PREP PRE-OP ANTIBIOTICS HIBICLENS SHOWER DAY BEFORE SURGERY AND MORNING OF SURGERY If you or anyone in your household have experienced Covid symptoms in the past week, please notify your surgeon or the nurse liaison at the phone number below for possible testing. Telephone instructions given to ___PATIENT and asked if any additional questions and then verbalized understanding. Patient advised to call surgeon office or pre surgery nurse liaison [phone] if any additional questions.
[2023-10-15] VITALS (13 sets, daily range): BP systolic 115–182; BP diastolic 65–82; PULSE 83–105; RESP 13–18; TEMP 35.6–36.6; O2SAT 96–100; BMI 26.0
[2023-10-15] MEDS: ACETAMINOPHEN 500 MG TABLET 1000 MG PO (06:39)
[2023-10-15] MEDS: KETOROLAC 15 MG/ML VIAL (*BKC) IV PUSH (06:39)
[2023-10-15 06:51] LABS: Glucose Point of Care 91 mg/dl (65-105)
[2023-10-15] MEDS: ALVIMOPAN 12 MG CAPSULE PO ×2 (06:52→21:07)
[2023-10-15] MEDS: LACTATED RINGERS 1,000 ML 30 ML IV CONT ×2 (07:00→13:04)
--- NOTE | 2023-10-15 07:15 | WPDANESEPPF ---
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 Patient Data Age: 67 Gender: F Height: 1.7 m Weight: 75.4 kg Last Vital Signs Temp 97.4 F L 10/15/23 06:16 Pulse 86 10/15/23 06:16 Resp 14 10/15/23 06:16 BP 131/71 10/15/23 06:16 Pulse Ox 98 10/15/23 06:16 O2 Del Method Room Air 10/15/23 06:16 Allergies Allergy/AdvReac Type Severity Reaction Status Date / Time No Known Allergies Allergy Verified 10/09/23 09:55 Home Medications Medication Instructions Recorded Confirmed Type lancets (Coaguchek Lancets) #400 ea 12/25/22 10/08/23 Rx atorvastatin 20 mg tablet (Lipitor) 20 mg PO DAILY #90 tabs 06/17/23 10/09/23 Rx dapagliflozin propanediol 10 mg 10 mg PO DAILY #90 tabs 06/17/23 10/09/23 Rx tablet (Farxiga) lisinopril 2.5 mg tablet 2.5 mg PO DAILY #90 tabs 06/17/23 10/09/23 Rx tirzepatide 7.5 mg/0.5 mL 7.5 mg (0.5 mL) subcut WEEKLY #6 mL 07/08/23 10/09/23 Rx subcutaneous pen injector (Marcundarlene) ciprofloxacin HCl 500 mg tablet 500 mg PO .COMPLEX #1 tablet 10/07/23 10/09/23 Rx metronidazole 500 mg tablet 500 mg PO .COMPLEX #3 tabs 10/07/23 10/09/23 Rx aspirin-sodium bicarbonate-citric 1 ea PO BID PRN Indigestion 10/09/23 10/15/23 History acid 324 mg effervescent tablet diphenhydramine 25 1 tablet PO HS PRN Pain 10/09/23 10/09/23 History mg-acetaminophen 500 mg tablet (Tylenol PM Extra Strength) Laboratory Tests 10/15/23 06:48 POC Capillary Glucose 91 mg/dl (65-105) Patient hx anesthesia problems: none Family hx anesthesia problems: none Results Review: All pre-operative results and documents have been reviewed as part of the pre-operative evaluation. [facility] Past Medical History Medical History BMI 25.0-25.9,adult BMI 29.0-29.9,adult Colon cancer screening Constipation COVID-19 Essential (primary) hypertension Mass of colon Osteoarthritis of left knee PTSD (post-traumatic stress disorder) Right foot pain Type 2 diabetes mellitus with hyperglycemia Surgical History Surgical History History of bilateral salpingo-oophorectomy History of hysterectomy Family History Family History Mother Cancer Tobacco abuse Acute myocardial infarction Heart disease Hypertension Father Family history of heart disease in male family member before age 55 Lung cancer Tobacco abuse Sibling No problems noted. Social History Social History Smoking status: Never smoker Second hand tobacco smoke exposure: Yes Alcohol intake: current Drinks per week: 4 Substance use: never Substance use type: does not use Do You Feel Safe in your Home?: Yes Lack of Transportation: No Lack of Food: Never True Current Housing: I Have Housing Concerned About Future Housing: No Difficulty Paying Gas/Electric Bills: No Difficulty Paying for Meds: No Currently Unemployed: No Education: Bachelor's Degree Difficulty w/ Childcare or Family Care: No Living arrangements: with family Additional living arrangements comments: SON Occupation/Education: retired 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
--- NOTE | 2023-10-15 07:20 | WPDHPUPDATE1 ---
History and Physical Update Update Date/Time: 10/15/23 07:20 History and Physical has been reviewed, including an updated exam of the patient. There are NO changes in the patient's condition. Risks, benefits, and alternatives have been discussed and questions answered. Patient agrees to proceed with procedure.
[2023-10-15] MEDS: ceFAZolin 2 GM/D5W 50 ML 2 GM/50 ML BAG IVPB (07:30)
[2023-10-15] MEDS: metroNIDAZOLE 500 MG/ISO 100ML 500 MG/100 ML BAG 100 MG IVPB (07:49)
[2023-10-15] MEDS: LIDO 1%/EPINEPHRINE 1:100,000 50 ML VIAL 30 ML INFILTRATE (08:12)
[2023-10-15] MEDS: BUPivacaine HCL 0.5% 10 ML AMP 30 ML INFILTRATE (08:12)
[2023-10-15] MEDS: INDOCYANINE GREEN 25 MG VIAL WITH DILUENT 7.5 MG IV PUSH (10:19)
[2023-10-15] MEDS: ceFAZolin SODIUM 1 GM VIAL 2 GM IV PUSH (12:17)
[2023-10-15] MEDS: BUPivacaine HCL 0.5% 10 ML AMP 20 ML INFILTRATE (12:35)
--- NOTE | 2023-10-15 13:00 | PM.OP ---
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 No extension of tumor to the surrounding bowel or mesentery. No obvious masses in the liver seen. No peritoneal studding. No enlarged lymph nodes along the ileocolic chain. Implants: None Estimated blood loss (mL): 50 Drains: No Packing: No Pathology: Yes ( terminal ileum, appendix, and right colon sent to pathology) Complications: No immediate complications Condition: Stable Disposition: PACU
[2023-10-15 14:11] LABS: Glucose Point of Care 187 mg/dl (65-105)
--- NOTE | 2023-10-15 14:29 | ADMGEN ---
This patient, Judy Martínez, was admitted to [facility] Surg Room 305-01. Patient/family oriented to hospital policies and general routines including ID bracelet, bed and alarms, visiting hours, pain management, procedures, bathroom and other care routines, personal items, smoking policy, room service/diet, and visiting hours. Information on how to activate the Rapid Response Team has been discussed. Patient/Family are encouraged to report perceived risks to care and to ask questions if they do not understand what they are told or what they should do.
[2023-10-15] MEDS: LACTATED RINGERS 1,000 ML 120 ML IV CONT ×2 (15:28→21:07)
--- NOTE | 2023-10-15 18:19 | W.PM.PROC2 ---
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 Surgeon Jcarlos Hernández MD Lavatory Attendant RAJENDRA Brandon Anesthesia General Indications Patient is a 67-year-old female who had a screening colonoscopy performed was found to have a large 4cm polyp in the cecum. She also had multiple other smaller polyps in the ascending colon which were biopsied. The biopsy of the polyp in the cecum showed adenocarcinoma in Situ. The other polyps were all benign. She presents now for a robotic assisted laparoscopic right hemicolectomy to remove the cancerous polyp. Findings The patient had a large polyp in the cecum which did not appear to erode through the serosa and into any surrounding structures. There was no peritoneal studding. There does with the liver. She did have a few adhesions of the omentum to the lower abdominal wall anteriorly from previous hysterectomy. No enlarged lymph nodes were found in the ileocolic chain. Description of Procedure After informed consent was obtained patient brought to the operating room where she was placed supine position and general endotracheal anesthesia was administered. A Rendon catheter was placed decompress the bladder. An orogastric tube was placed it decompress the stomach. The abdomen was then prepped and draped usual sterile fashion. A time-out was then performed correctly identifying the patient as well as procedure to be performed. She was given perioperative IV antibiotics. I 1st started by entering the abdomen left upper quadrant utilizing a 10mm Optiview port. Once inside the abdomen insufflated to adequate pneumoperitoneum of 15mmHg of CO2. There were adhesions of omentum to the lower anterior abdominal wall at the previous old hysterectomy scar. I placed additional 8mm trocar ports across the abdomen and utilize laparoscopic scissors to take down these adhesions. Then allowed me to place a 12mm robotic trocar port in the suprapubic position. I then had an Patric robot brought to the patient's bedside and then it was docked to the robotic ports. I then scrubbed out the procedure and sent down the robotic console. Robotic instruments were advanced into the abdomen under direct visualization 1st started by placing the omentum cephalad and reflecting it over the top of the transverse colon. I then retracted all the small bowel to the lower left side of the abdomen down in the pelvis. This allowed me access to the terminal ileum, cecum, and ascending right colon. I then identified the ileocolic pedicle after tenting up the cecum with atraumatic robotic grasper. I then proceeded to dissect down along the base of the ileocolic pedicle with robotic jorge until I skeletonized the vessels. I did not see any enlarged lymph nodes in this ileocolic chain. I then divided the ileocolic pedicle with the vessel sealer. Hemostasis was good. I then divided the mesentery to the terminal ileum utilizing the vessel sealer. I then entered the avascular plane identifying the duodenum and staying lateral to the duodenum preserve the duodenum without any injury. Is retroperitoneal plane I dissected cephalad all the way up to the proximal transverse colon. The vessel sealer was then used to divide the omentum off of the hepatic flexure of the colon. I then pulled the transverse colon caudad and then divided the right hepatic colic ligament. I then connected the dissection of mesentery to the proximal transverse colon in the previous dissection in the retroperitoneal plane. I divided more of the mesentery to the descending colon to enlarge this window. I then used the 90 male sure form robotic stapler with a GI load to divide the proximal transverse colon. I then used a reload to the robotic stapler to divide the terminal il
[2023-10-15 20:15] LABS: Glucose Point of Care 153 mg/dl (65-105)
[2023-10-15] MEDS: HYDROcodone/acetaminophen (*CRX) 5-325 MG TABLET 1 TAB PO (21:07)
[2023-10-16] MEDS: HYDROcodone/acetaminophen (*CRX) 5-325 MG TABLET 1 TAB PO ×4 (02:37→18:36)
[2023-10-16 05:51] VITALS: BP 141/71; PULSE 80; RESP 12; TEMP 36.7; O2SAT 98
[2023-10-16 07:30] LABS: Glucose Point of Care 104 mg/dl (65-105)
[2023-10-16] MEDS: LACTATED RINGERS 1,000 ML 120 ML IV CONT (09:42)
[2023-10-16] MEDS: ATORVASTATIN 20 MG TABLET PO (09:53)
[2023-10-16] MEDS: ENOXAPARIN 40 MG/0.4 ML SYRINGE SUB-Q (09:53)
[2023-10-16] MEDS: EMPAGLIFLOZIN 25 MG TABLET BY MOUTH (09:53)
[2023-10-16] MEDS: PANTOPRAZOLE 40 MG TABLET PO (09:53)
[2023-10-16] MEDS: lisinopriL 2.5 MG TABLET PO (09:53)
[2023-10-16] MEDS: guaiFENesin 600 MG/DEXTROMETHORPHAN 30 MG SR TAB 12 HR 1 TAB PO ×2 (09:53→20:22)
[2023-10-16] MEDS: ALVIMOPAN 12 MG CAPSULE PO (09:53)
--- NOTE | 2023-10-16 10:42 | WPDPN ---
Progress Note: A&P Assessment and Plan (1) Carcinoma in situ of cecum: Code(s): D01.0 - Carcinoma in situ of colon Status: Acute Assessment and Plan: Postop day 1 status post robotic assisted laparoscopic right hemicolectomy with ileocolic stapled anastomosis. She is doing very well today. We will go ahead advanced diet to residual and low-fiber diet for dinner today. Continue to ambulate in hallways into the bathroom. If she continues do well tomorrow then we will plan on discharge home tomorrow. Subjective Date/time seen: 10/16/23 10:42 Interval history: Patient doing very well today. She is postop day 1 after robotic assisted laparoscopic right hemicolectomy. Mild incisional pain is well tolerated with Hurley. She also has IV ibuprofen to help with pain. She has had 2 liquid bowel movements. Tolerating full liquids. Exam GI: Other: Abdomen is soft and nondistended. Port site incisions and low transverse abdominal extraction incision are healing well. Some mild bruising is noted. No redness or drainage. Expected mild tenderness to palpation. Objective Data Vital Signs Vital Signs: Vital Signs - 24 hr 10/15/23 12:55 10/15/23 13:10 10/15/23 13:25 Temperature 36.3 C L Pulse Rate 83 89 91 Respiratory Rate 18 16 14 Blood Pressure 115/65 144/71 H 156/79 H Pulse Oximetry 100 100 100 Oxygen Delivery Simple Face Mask Simple Face Mask Simple Face Mask Oxygen Flow Rate 8 8 8 10/15/23 13:40 10/15/23 13:55 10/15/23 14:04 Temperature Pulse Rate 91 92 94 Respiratory Rate 15 15 16 Blood Pressure 164/81 H 175/82 H 182/79 H Pulse Oximetry 96 97 98 Oxygen Delivery Room Air Room Air Room Air Oxygen Flow Rate 10/15/23 14:20 10/15/23 14:35 10/15/23 15:05 Temperature 35.6 C L 35.6 C L 35.6 C L Pulse Rate 93 96 97 Respiratory Rate 18 16 18 Blood Pressure 162/77 H 175/76 H 170/77 H Pulse Oximetry 100 96 100 Oxygen Delivery Oxygen Flow Rate 10/15/23 16:06 10/15/23 20:00 10/15/23 20:00 Temperature 35.7 C L 36.6 C Pulse Rate 100 105 H 105 H Respiratory Rate 13 13 Blood Pressure 164/81 H 154/77 H Pulse Oximetry 97 98 98 Oxygen Delivery Room Air Oxygen Flow Rate 10/15/23 23:59 10/16/23 05:51 Temperature 36.6 C 36.7 C Pulse Rate 91 80 Respiratory Rate 13 12 Blood Pressure 146/72 H 141/71 H Pulse Oximetry 98 98 Oxygen Delivery Oxygen Flow Rate Intake/Output Intake/Output: Intake & Output 10/13/23 10/14/23 10/15/23 10/16/23 23:59 23:59 23:59 23:59 Intake Total 1288 1400 Balance 1288 1400 Meds/Results Medications: Active Medications Generic Name Dose Route Start Last Admin Trade Name Freq PRN Reason Stop Dose Admin Acetaminophen 1,000 mg 10/15/23 14:05 Acetaminophen 500 Mg Tablet PO Q6H PRN Mild Pain (1-3) or Fever Hydrocodone Bitart/Acetaminophen 1 tab 10/15/23 14:05 10/16/23 09:52 Hydrocodone/Acetaminophen (*Crx) 5-325 Mg Tablet PO 1 tab Q4H PRN Administration Pain Rated 4-6 Atorvastatin Calcium 20 mg 10/16/23 09:00 10/16/23 09:53 Atorvastatin 20 Mg Tablet PO 20 mg DAILY SILVIA Administration Benzonatate 100 mg 10/16/23 05:14 Benzonatate 100 Mg Capsule PO TID PRN Cough Dextrose 12.5 gm 10/15/23 18:52 Dextrose 50% 25 Gm/50 Ml Syringe IV PUSH PRN PRN Hypoglycemia Protocol Empagliflozin 25 mg 10/16/23 09:00 10/16/23 09:53 Empagliflozin 25 Mg Tablet BY MOUTH 25 mg DAILY SILVIA Administration Enalaprilat 1.25 mg 10/15/23 14:05 Enalaprilat 1.25 Mg/Ml Vial IV PUSH Q6HR PRN Blood Pressure - High Enoxaparin Sodium 40 mg 10/16/23 09:00 Enoxaparin 40 Mg/0.4 Ml Syringe SUB-Q DAILY SILVIA Glucagon 1 mg 10/15/23 18:52 Glucagon For Inj 1 Mg Vial IM PRN PRN Hypoglycemia Protocol Glucose 15 gm 10/15/23 18:52 Glucose Oral Gel 15 Gm Of Glucse In 37.5 Gm Tube PO PRN PRN Hypoglycemia Pr
[2023-10-16 11:24] LABS: Glucose Point of Care 162 mg/dl (65-105)
--- NOTE | 2023-10-16 13:16 | WPDANESPN ---
Anes - Prog Note Post-Op Date/Time: 10/16/23 13:16 Cardiovascular status: normal Respiratory status: normal Airway patency: baseline Mental status: baseline Post-Op hydration status: normal Vital Signs: Last Vital Signs Temp 36.7 C 10/16/23 05:51 Pulse 80 10/16/23 05:51 Resp 12 10/16/23 05:51 BP 141/71 H 10/16/23 05:51 Pulse Ox 98 10/16/23 05:51 O2 Del Method Room Air 10/15/23 20:00 O2 Flow Rate 8 10/15/23 13:25 Pain Score (VAS): 310 I/O: Intake & Output 10/15/23 10/16/23 10/16/23 23:59 07:59 15:59 Intake Total 1038 1000 520 Balance 1038 1000 520 10/15/23 10/15/23 10/16/23 13:44 19:52 07:26 POC Capillary Glucose 187 H 153 H 104 10/16/23 11:19 POC Capillary Glucose 162 H Post-procedural complaints: none Patient Feedback: Patient satisfied with anesthetic care.
[2023-10-16 14:00] VITALS: BP 153/57; PULSE 83; RESP 16; TEMP 36.6; O2SAT 99
[2023-10-16 16:39] LABS: Glucose Point of Care 150 mg/dl (65-105)
[2023-10-16 20:19] LABS: Glucose Point of Care 112 mg/dl (65-105)
[2023-10-16] MEDS: ACETAMINOPHEN 500 MG TABLET 1000 MG PO (20:21)
[2023-10-16] MEDS: BENZONATATE 100 MG CAPSULE PO (20:22)
[2023-10-16 23:03] VITALS: BP 161/72; PULSE 78; RESP 20; TEMP 36.6; O2SAT 99
[2023-10-17] MEDS: LACTATED RINGERS 1,000 ML 60 ML IV CONT (00:19)
[2023-10-17] MEDS: HYDROcodone/acetaminophen (*CRX) 5-325 MG TABLET 1 TAB PO ×3 (00:22→11:24)
[2023-10-17 06:00] VITALS: BP 160/70; PULSE 70; RESP 18; TEMP 36.7; O2SAT 97
[2023-10-17 07:18] LABS: Glucose Point of Care 99 mg/dl (65-105)
[2023-10-17] MEDS: guaiFENesin 600 MG/DEXTROMETHORPHAN 30 MG SR TAB 12 HR 1 TAB PO (08:18)
[2023-10-17] MEDS: ATORVASTATIN 20 MG TABLET PO (08:18)
[2023-10-17] MEDS: EMPAGLIFLOZIN 25 MG TABLET BY MOUTH (08:19)
[2023-10-17] MEDS: PANTOPRAZOLE 40 MG TABLET PO (08:19)
[2023-10-17] MEDS: ENOXAPARIN 40 MG/0.4 ML SYRINGE SUB-Q (08:19)
[2023-10-17] MEDS: BENZONATATE 100 MG CAPSULE PO (08:19)
[2023-10-17] MEDS: lisinopriL 2.5 MG TABLET PO (08:19)
[2023-10-17 11:33] LABS: Glucose Point of Care 106 mg/dl (65-105)
--- NOTE | 2023-10-17 12:37 | PM.DS ---
DS: Admitting Diagnosis Discharge Date October 17, 2023 Admitting Diagnosis Cecal adenocarcinoma in Situ DS: Discharge Diagnosis Discharge Diagnosis (1) Carcinoma in situ of cecum: Code(s): D01.0 - Carcinoma in situ of colon Status: Acute DS: Summary Hospital Course Reason for hospitalization: Cecal adenocarcinoma in Situ Hospital Course: patient had an outpatient colonoscopy for screening purposes was found to have multiple polyps in the colon. The largest of which was about 4cm in diameter. Biopsy of this large polyp in the cecum showed cecal adenocarcinoma in Situ. The other polyps were all benign polyp. she was seen in the office and set up for a elective robotic assisted laparoscopic right hemicolectomy to remove the cancerous polyp. She came [facility] on October 15, 2023 where she underwent an uncomplicated robotic assisted laparoscopic right hemicolectomy with ileocolic [id number]-jc-ffib functional stapled anastomosis. Postoperatively her course of recovery was uneventful and she was transferred to surgical floor for routine postoperative care. One surgical floor she did very well. She received IV ibuprofen scheduled for baseline pain management. She was also given 2 more doses of Entereg for stimulation of bowel function. Use of narcotics was minimized and so the morning after surgery she had a bowel movement. The bowel was loose. Her pain was well controlled with the occasional oral narcotic pain medication and the IV ibuprofen. She was able get up and ambulate without difficulty and urinate without difficulty. I started the day of her incisions were healing well with a small amount of ecchymosis around extraction site in the lower transverse abdominal incision. She was then advanced to full liquids later today and then 2 low-fiber diet which she tolerated well. On postop day 2. She was doing very well and was discharged home in improved condition tolerating a low-fat diet and having bowel movements. Pain was well controlled on oral pain medications and her abdomen was soft and benign with healing incisions as expected. Status at Discharge Functional status at discharge: independent ambulation Overall status at discharge: patient is back to baseline Time Spent with Patient Time attestation: Total time spent providing and/or coordinating discharge services: Time spent: Less than 30 minutes Exam GI: Other: Abdomen is soft and nondistended. Port site incision are all healing well without any wound complications. Expected mild tenderness around the port sites which is well treated with oral pain medications. DS: Data Data Completed and Pending Pending studies at discharge: Pending at discharge 10/15/23 12:20 Surgical [PTH] Routine Labs on day of discharge: Labs from last 24 hours 10/17/23 10/17/23 10/16/23 11:28 07:10 20:15 POC Capillary Glucose 106 H 99 112 H 10/16/23 16:36 POC Capillary Glucose 150 H Discharge Plan Discharge Attending physician on discharge: Jcarlos Hernández Discharging Clinician: Jcarlos Hernández Patient Disposition: Home, Self-Care Activity: may shower Diet: low fiber Discharge Instructions: May discharge home when stable. Follow up with Dr. Hernández in the office in 2 weeks. Patient to call [phone] for an appointment. May shower in 24hours but do not soak incisions under water for 2 weeks. No lifting more than 10 to 15 lb for 4 weeks. May advance diet as tolerated. No driving for at least 3 days or until no longer taking any narcotic pain medication. Resume all home medications. Prescription for narcotic pain medicines will be sent to the patient's pharmacy if needed. May use Tylenol and/or ibuprofen in addition to or in place of narcotic pain medications for postoperative pain. Patient Instructions: Antibiotic Form, Low Fiber Diet (DC) Stand Alone Forms: General Discharge Information Follow-up/Referrals: Edgar
== END 2023-10-17 13:20 | disposition home or self-care (01) | DRG 331 ==
LOC: ANH3MEDSUR 14:36
PROVIDERS: Admitting Provider Surgery; PCP Family Medicine; Visit Provider Surgery
PROC: 0DTF4ZZ Resection of Right Large Intestine, Percutaneous Endoscopic Approach (ICD-10-PCS; principal; 2023-10-15 07:30)
DX: D01.0 Carcinoma in situ of colon (principal); E11.65 Type 2 diabetes mellitus with hyperglycemia; I10 Essential (primary) hypertension; M17.12 Unilateral primary osteoarthritis, left knee; Z79.85 Long-term (current) use of injectable non-insulin antidiabetic drugs; Z86.16 Personal history of COVID-19
CPT/HCPCS: 82948; 88309; 88342; A9270; J0690; J1100; J1170; J1650; J1836; J1885; J2250; J2405; J2704; J3010; J7030; J7120

== ENCOUNTER 2024-01-21 10:34 | Outpatient (CLI) | payer OTHER, MEDICARE, SELFPAY ==
[2024-01-21 11:17] LABS: Hematocrit 41.4 % (37.0-47.0); Hemoglobin 13.3 g/dL (12.0-15.0); Mean Corpuscular HGB Conc 32.1 g/dl (32-36); Mean Corpuscular Hemoglobin 27.2 pg (26-34); Mean Corpuscular Volume 84.7 fl (80-100); Mean Platelet Volume 9.4 fl (7.4-10.4); Platelet Count Result 299 k/mm3 (150-375); Red Blood Count 4.89 M/mm3 (4.2-5.4); Red Cell Distribution Width 14.3 % (11.5-14.5); White Blood Count 7.1 K/mm3 (4.5-10.0)
[2024-01-21 11:40] LABS: Alanine Aminotransferase 16 U/L (6-35); Albumin Level 4.4 g/dL (3.5-5.1); Alkaline Phosphatase 82 U/L (38-126); Anion Gap 8 mmol/L (4-12); Aspartate Amino Transferase 24 U/L (14-36); Bilirubin,Total 0.3 mg/dL (0.2-1.3); Blood Urea Nitrogen 12 mg/dL (7-17); Calcium 9.5 mg/dL (8.4-10.2); Carbon Dioxide 28 mmol/L (22-30); Chloride 102 mmol/L (98-107); Cholesterol 211 mg/dL (0-200); Estimated Glomerular Filt Rate > 60; Glucose 112 mg/dL (65-110); HDL Direct 79 mg/dL; Potassium 3.9 mmol/L (3.4-5.0); Sodium 138 mmol/L (137-145); Triglycerides 107 mg/dL (<150)
[2024-01-21 11:47] LABS: Creatinine Urine 81.3 mg/dL
[2024-01-21 11:51] LABS: LDL Cholesterol Direct 80 mg/dL
[2024-01-21 11:52] LABS: MALB Creatinine Ratio 11.2 mg/g (0-30); Microalbumin Urine Random 9.1 mg/L (0-16.7)
== END 2024-01-21 10:35 | disposition home or self-care (01) ==
PROVIDERS: PCP Family Medicine; Visit Provider Family Medicine
DX: C18.0 Malignant neoplasm of cecum (principal); I10 Essential (primary) hypertension; E11.9 Type 2 diabetes mellitus without complications; Z13.220 Encounter for screening for lipoid disorders
CPT/HCPCS: 36415; 80048; 80061; 80076; 82043; 84443; 85027

== ENCOUNTER 2024-02-23 08:51 | Outpatient (CLI) | payer OTHER, MEDICARE, SELFPAY ==
--- NOTE | ~2024-02-23 | CT_ITS ---
EXAMINATION: CT abdomen pelvis w con DATE: 02/23/2024 09:34 INDICATION: Colon cancer TECHNIQUE: Computed tomography (CT) of the abdomen and pelvis was performed with 100 mL Omnipaque-350 intravenous contrast. Automated exposure control and iterative reconstruction technique were employe d. The dose-length product was 428.73 mGy-cm. COMPARISON: 10/10/2023 FINDINGS: Lung bases are clear. Heart size is normal. No pericardial or pleural effusion. Liver, gallbladder, s pleen, pancreas, bilateral adrenal glands and kidneys are normal. Postoperative change of interval ri ght hemicolectomy and right lower quadrant ileocolic anastomosis with resection of the previously see n cecal mass and appendix. No bowel obstruction. Bladder is normal. The uterus is not identified and has likely been surgically resected. Bilateral adnexa are unremarkable. No free intraperitoneal gas o r fluid. No pathologically enlarged abdominal or pelvic lymphadenopathy. Mild S-shaped curvature of t he thoracolumbar spine with mild to moderate spondylosis. IMPRESSION: 1. Interval right hemicolectomy with ileocolic anastomosis for section of a reported prior colon canc er. No evident residual, locally recurrent or metastatic disease. Reviewed, dictated and finalized at location B. A DIRECTOR IMPRESSION: 1. Interval right hemicolectomy with ileocolic anastomosis for section of a rep orted prior colon cancer. No evident residual, locally recurrent or metastatic disease.
[2024-02-23 09:29] LABS: Estimated Glomerular Filt Rate > 60
== END 2024-02-23 08:52 | disposition home or self-care (01) ==
LOC: ANHIMG 08:52
PROVIDERS: PCP Family Medicine; Visit Provider Internal Medicine Hematology & Oncology
DX: C18.9 Malignant neoplasm of colon, unspecified (principal); Z98.890 Other specified postprocedural states; Z98.0 Intestinal bypass and anastomosis status
CPT/HCPCS: 74177; Q9967

== ENCOUNTER 2024-03-02 17:36 | Outpatient (CLI) | payer OTHER, MEDICARE, SELFPAY ==
[2024-03-02 18:27] LABS: Basophils Percent Auto 0.4 % (0.2-1.2); Eosinophils Absolute Auto 0.1 K/mm3 (0-0.3); Eosinophils Percent Auto 0.9 % (0-4.4); Hematocrit 39.7 % (37.0-47.0); Hemoglobin 12.5 g/dL (12.0-15.0); Immature Granulocyte Absolute 0.01 K/mm3 (0.00-0.031); Immature Granulocyte Percent A 0.1 % (0-0.5); Lymphocytes Absolute Auto 2.37 K/mm3 (0.9-3.2); Lymphocytes Percent Auto 34.4 % (18.3-44.2); Mean Corpuscular HGB Conc 31.5 g/dl (32-36); Mean Corpuscular Hemoglobin 26.4 pg (26-34); Mean Corpuscular Volume 83.8 fl (80-100); Mean Platelet Volume 9.8 fl (7.4-10.4); Monocytes Absolute Auto 0.6 K/mm3 (0.1-0.6); Monocytes Percent Auto 8.1 % (2.6-8.5); Neutrophils Absolute Auto 3.9 K/mm3 (1.3-6.7); Neutrophils Percent Auto 56.1 % (45.5-73.1); Platelet Count Result 333 k/mm3 (150-375); Red Blood Count 4.74 M/mm3 (4.2-5.4); Red Cell Distribution Width 14.6 % (11.5-14.5); White Blood Count 6.9 K/mm3 (4.5-10.0)
[2024-03-02 18:37] LABS: Alanine Aminotransferase 16 U/L (6-35); Albumin Level 4.3 g/dL (3.5-5.1); Alkaline Phosphatase 77 U/L (38-126); Anion Gap 8 mmol/L (4-12); Aspartate Amino Transferase 22 U/L (14-36); Bilirubin,Total 0.2 mg/dL (0.2-1.3); Blood Urea Nitrogen 22 mg/dL (7-17); Calcium 9.6 mg/dL (8.4-10.2); Carbon Dioxide 25 mmol/L (22-30); Chloride 106 mmol/L (98-107); Estimated Glomerular Filt Rate > 60; Glucose 90 mg/dL (65-110); Potassium 3.8 mmol/L (3.4-5.0); Sodium 139 mmol/L (137-145)
== END 2024-03-02 17:37 | disposition home or self-care (01) ==
PROVIDERS: PCP Family Medicine; Visit Provider Internal Medicine Hematology & Oncology
DX: C18.9 Malignant neoplasm of colon, unspecified (principal)
CPT/HCPCS: 36415; 80053; 82378; 85025

== ENCOUNTER 2024-04-29 12:57 | Outpatient (CLI) | payer OTHER, MEDICARE, SELFPAY ==
--- NOTE | ~2024-04-29 | XR_ITS ---
EXAMINATION: XR hip LT min 2V DATE: 04/29/2024 13:11 INDICATION: Left hip pain TECHNIQUE: Anteroposterior and frog-leg lateral views of the left hip were obtained. COMPARISON: None. FINDINGS: Alignment is normal. No fracture. Severe osteoarthritis at the left hip with diffuse severe joint spa ce narrowing and extensive subarticular cystlike changes at the cephalad and superomedial aspects of the femoral head and acetabulum. Moderate osteoarthritis at the left sacroiliac joint. Soft tissues a re unremarkable. IMPRESSION: 1. Severe left hip osteoarthritis. No acute osseous abnormality. Reviewed, dictated and finalized at location B. [employer]
== END 2024-04-29 12:58 | disposition home or self-care (01) ==
LOC: ANHIMG 13:00
PROVIDERS: PCP Family Medicine; Visit Provider Nurse Practitioner Adult Health
DX: M16.12 Unilateral primary osteoarthritis, left hip (principal)
CPT/HCPCS: 73502

== ENCOUNTER 2024-05-04 15:03 | Emergency (ER) | payer OTHER, MEDICARE, SELFPAY ==
[2024-05-04 15:13] VITALS: BP 170/81; PULSE 98; RESP 16; TEMP 37.1; O2SAT 100
--- NOTE | 2024-05-04 15:20 | ED_ITS ---
HPI - General Adult General Chief complaint: Skin/Abscess/Foreign Body Stated complaint: lower lip swollen Time Seen by Provider: 05/04/24 15:20 Source: patient, RN notes reviewed and old records reviewed Mode of arrival: ambulatory Limitations: no limitations History of Present Illness HPI narrative: 68-year-old female presents to the [facility] with lower lip swelling that started yesterday. No new creams ointments lotions detergents. Patient states that she feels like she had a little bump there, concern for a bug bite. Patient reports that she has been squeezing it, now has a bruised area to just below the lower lip. Center appears to be more of a pimple area. Patient has been applying Neosporin and Vaseline to the area. Patient reports that lip keep swelling., increased warmth. Patient denies any trouble breathing. No tongue swelling Onset (ago): day(s) (1) Related Data Home Medications ?Medication ?Instructions ?Recorded ?Confirmed ?Last Taken ?Type aspirin-sodium bicarbonate-citric 1 ea PO BID PRN Indigestion 10/09/23 01/08/24 1 Week Ago History acid 324 mg effervescent tablet ~10/08/23 diphenhydramine 25 1 tablet PO HS PRN Pain 10/09/23 01/08/24 10/14/23 History mg-acetaminophen 500 mg tablet (Tylenol PM Extra Strength) Allergies Allergy/AdvReac Type Severity Reaction Status Date / Time No Known Allergies Allergy Verified 05/04/24 15:05 Review of Systems 2 Review of Systems: All systems reviewed & are unremarkable except as noted in HPI and below Constitutional: Constitutional: Reports no additional constitutional complaints ENT: Reports as per HPI Cardiovascular: Cardiovascular: Reports no additional cardiovascular complaints, Denies chest pain and Denies dyspnea Respiratory: Respiratory: Reports no additional respiratory complaints, Denies chest congestion, Denies cough and Denies dyspnea Musculoskeletal: Musculoskeletal: Reports no additional musculoskeletal complaints Integumentary/Breasts: Skin/Breast: Reports system reviewed and no additional complaints, except as docu PMFSH Past Medical History Medical History Carcinoma in situ of cecum Mass of colon Colon cancer screening BMI 25.0-25.9,adult Osteoarthritis of left knee PTSD (post-traumatic stress disorder) COVID-19 Right foot pain Constipation BMI 29.0-29.9,adult Essential (primary) hypertension Type 2 diabetes mellitus with hyperglycemia Surgical History Surgical History H/O right hemicolectomy Dr. Jcarlos Hernández 10/15/23 History of hemicolectomy robotic lap right hemicolectomy 10/15/23 Dr Jcarlos Hernández History of bilateral salpingo-oophorectomy History of hysterectomy Family History Family History Mother Cancer Tobacco abuse Acute myocardial infarction Heart disease Hypertension Father Family history of heart disease in male family member before age 55 Lung cancer Tobacco abuse Sibling No problems noted. Social History Social History Smoking status: Never smoker Second hand tobacco smoke exposure: Yes Alcohol intake: current Drinks per week: 2 Substance use: never Substance use type: does not use Do You Feel Safe in your Home?: Yes Lack of Transportation: No Lack of Food: Never True Current Housing: I Have Housing Concerned About Future Housing: No Difficulty Paying Gas/Electric Bills: No Difficulty Paying for Meds: No Currently Unemployed: No Education: Associate Degree Difficulty w/ Childcare or Family Care: No Living arrangements: with family Additional living arrangements comments: SON Occupation/Education: retired 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 There is no relevant family history pertinent to the patient complaint. Exam 2 Const: General: cooperative, healthy appearing, comfortable, no acute distress, well developed, alert and well nourished Nutritional Appearance: w ell nourished Orientation/consciousness: patient oriented x3 Limitations: no limitations HENMT: Head: normal to inspection Face images: 1. Small amount of bruising from squeezing of the probable pimple. Surrounding erythema to the lower lip. Increased warmth. No fluctuance or drainage noted. Eyes: General: appearance normal, both eyes and all related structures A lignment and Position: alignment normal Neck: Neck: normal visual inspection, full ROM, no lymphadenopathy and no meningeal signs Chest: Chest palpation & inspection: normal inspection of the chest Resp: Effort & Inspection: normal respiratory effort and able to speak in complete sentences Cardio: Rate: regular rate Skin: General skin exam: normal color and no rashes or lesions noted L esions: lesion noted Neuro: General: patient oriented x3, gait normal, moves all extremities and no meningeal signs Cognition (Neuro): normal cognition Speech: normal speech Gait exam (Neuro): Normal gait present Extrem: General: normal to inspection, full ROM, capillary refill normal and normal gait Psych: Appearance: grossly normal and well kempt Mental Status: mental status grossly normal Speech and movement: Normal speech and movement present and Clear speech present Affect: normal affect Attitude: cooperative Course Course Level of Care: Express Care Visit Vital Signs Vital signs: Vital Signs Temperature 98.8 F 05/04/24 15:13 Pulse Rate 98 05/04/24 15:13 Respiratory Rate 16 05/04/24 15:13 Blood Pressure 170/81 H 05/04/24 15:13 Pulse Oximetry 100 05/04/24 15:13 Oxygen Delivery Room Air 05/04/24 15:13 Temperature 98.8 F 05/04/24 15:13 Pulse Rate 98 05/04/24 15:13 Respiratory Rate 16 05/04/24 15:13 Blood Pressure 170/81 H 05/04/24 15:13 Pulse Oximetry 100 05/04/24 15:13 Oxygen Delivery Room Air 05/04/24 15:13 Reviewed Medical Decision Making MDM Narrative Medical decision making narrative: Patient sitting comfortably in exam room. Nontoxic, vitals stable. Patient in no acute distress Patient presents for swelling of the lower lid that was preceded by a possible pimple that she has been squeezing. Ecchymosis noted to just below the lower lip. Now having swelling, increased warmth and tightness. Has increased erythema Discussed in great detail signs and symptoms to proceed to the emergency room versus following up with primary care provider which patient verbalized understanding. Discharge instructions reviewed with patient, as well as provided in writing per nursing staff. The instructions also include specific and strict return/GO TO THE ER as well as f/u information. All questions have been answered, and the patient deny any further questions with discharge and discharge plan. Some parts of this dictation were generated by voice recognition software and may contain typographical and/or grammatical inaccuracies. Differential Diagnosis Differential Diagnosis: Infection, cellulitis, angioedema, allergic reaction Medical Records Medical records reviewed: Yes I reviewed the external patient's medical records. Vital Signs Vital Signs: Vital Signs Temperature 98.8 F 05/04/24 15:13 Pulse Rate 98 05/04/24 15:13 Respiratory Rate 16 05/04/24 15:13 Blood Pressure 170/81 H 05/04/24 15:13 Pulse Oximetry 100 05/04/24 15:13 Oxygen Delivery Room Air 05/04/24 15:13 Temperature 98.8 F 05/04/24 15:13 Pulse Rate 98 05/04/24 15:13 Respiratory Rate 16 05/04/24 15:13 Blood Pressure 170/81 H 05/04/24 15:13 Pulse Oximetry 100 05/04/24 15:13 Oxygen Delivery Room Air 05/04/24 15:13 Reviewed Lab Data Lab results reviewed: Yes I reviewed the patient's lab results. Labs: Reviewed Critical Care Time Critical Care Time Critical Care Time: No Discharge Plan Discharge Clinical Impression: Swollen lip Cellulitis Qualifiers: Site of cellulitis: unspecified site Qualified Code(s): L03.90 - Cellulitis, unspecified Patient Disposition: Home, Self-Care Condition: Stable Instructions: Antibiotic Form, Cellulitis (ED) Additional Instructions: The most important part of your care is follow up with Primary care provider. Today your blood pressure was 170/81. Please follow-up with your primary care provider within 2 weeks to have this recheck Take Zyrtec every day Take Pepcid 20mg daily for 7 days Take the steroids starting today Take the antibiotic as prescribed Avoid hot showers, Take cool showers. Hot showers will make rashes worse Apply cool compresses every 2-3 hours for 15 minutes Go to the ER for new or worsening symptoms such as shortness of breath. Patient Language: Spanish Prescriptions: New prednisone 50 mg tablet 50 mg PO DAILY Qty: 5 0RF doxycycline monohydrate 100 mg tablet 100 mg PO BID Qty: 14 0RF No Action Farxiga 10 mg tablet 10 mg PO DAILY Qty: 90 3RF lisinopril 2.5 mg tablet 2.5 mg PO DAILY Qty: 90 3RF Rx Instructions: in am atorvastatin [Lipitor] 20 mg tablet 20 mg PO DAILY Qty: 90 3RF Mounjaro 7.5 mg/0.5 mL pen injector 7.5 mg subcut WEEKLY Qty: 6 3RF Rx Instructions: sundays (DME) lancets [Coaguchek Lancets] Misc See Rx Instructions .Route Qty: 400 11RF Rx Instructions: three times daily diphenhydramine-acetaminophen [Tylenol PM Extra Strength] 25-500 mg Tablet 1 tablet PO HS PRN (Reason: Pain) aspirin-sod bicarb-citric acid 324 mg Tablet, Effervescent 1 ea PO BID PRN (Reason: Indigestion) meloxicam 7.5 mg tablet 7.5 mg PO DAILY Qty: 30 0RF Follow-up/Referrals: Daron Sultana MD [Primary Care Provider] - 1 Week (express care follow up ) Stand Alone Forms: Work/School Release IP Time of Disposition: 15:29
== END 2024-05-04 15:40 | disposition home or self-care (01) ==
PROVIDERS: Emergency Provider Nurse Practitioner; PCP Family Medicine
DX: K13.0 Diseases of lips (principal); I10 Essential (primary) hypertension; E11.9 Type 2 diabetes mellitus without complications; M17.12 Unilateral primary osteoarthritis, left knee; Z85.038 Personal history of other malignant neoplasm of large intestine; Z90.49 Acquired absence of other specified parts of digestive tract; Z79.82 Long term (current) use of aspirin
CPT/HCPCS: 99213; G0463

== ENCOUNTER 2024-06-08 17:42 | Outpatient (CLI) | payer OTHER, MEDICARE, SELFPAY ==
[2024-06-08 18:03] LABS: Basophils Percent Auto 0.6 % (0.2-1.2); Eosinophils Absolute Auto 0.1 K/mm3 (0-0.3); Eosinophils Percent Auto 1.7 % (0-4.4); Hemoglobin 12.9 g/dL (12.0-15.0); Immature Granulocyte Absolute 0.01 K/mm3 (0.00-0.031); Immature Granulocyte Percent A 0.2 % (0-0.5); Lymphocytes Absolute Auto 2.31 K/mm3 (0.9-3.2); Lymphocytes Percent Auto 35.9 % (18.3-44.2); Mean Corpuscular HGB Conc 31.5 g/dl (32-36); Mean Corpuscular Hemoglobin 26.7 pg (26-34); Mean Corpuscular Volume 84.7 fl (80-100); Mean Platelet Volume 9.4 fl (7.4-10.4); Monocytes Absolute Auto 0.6 K/mm3 (0.1-0.6); Monocytes Percent Auto 8.9 % (2.6-8.5); Neutrophils Absolute Auto 3.4 K/mm3 (1.3-6.7); Neutrophils Percent Auto 52.7 % (45.5-73.1); Platelet Count Result 304 k/mm3 (150-375); Red Blood Count 4.84 M/mm3 (4.2-5.4); Red Cell Distribution Width 13.8 % (11.5-14.5); White Blood Count 6.4 K/mm3 (4.5-10.0)
[2024-06-08 18:15] LABS: Alanine Aminotransferase 18 U/L (6-35); Albumin Level 4.3 g/dL (3.5-5.1); Alkaline Phosphatase 93 U/L (38-126); Anion Gap 8 mmol/L (4-12); Aspartate Amino Transferase 23 U/L (14-36); Bilirubin,Total 0.1 mg/dL (0.2-1.3); Blood Urea Nitrogen 21 mg/dL (7-17); Calcium 9.6 mg/dL (8.4-10.2); Carbon Dioxide 27 mmol/L (22-30); Chloride 104 mmol/L (98-107); Estimated Glomerular Filt Rate > 60; Glucose 138 mg/dL (65-110); Potassium 3.9 mmol/L (3.4-5.0); Sodium 139 mmol/L (137-145)
--- OUTSIDE RECORDS SUMMARY | 2024-06-08 19:03 | XMS_ITS | Referral Summary ---
Author Organization [facility] Address [address] [place] [address] Care Team Providers Care Assistant Produce Manager Name Role Phone Daron Sultana MD Primary Care Provider [phone] Encounters Date Type Department Care Team Description 05/05/2024 7:07 AM CELLOPHANE BAG MACHINE OPERATOR - 05/05/2024 10:30 AM [facility] Emergency [facility] Emergency Department [address] [place] [address] Opal Stringer MD Lip swelling (Primary Dx); Cellulitis of lip Discharge Disposition: Discharge to home or self care from Last 3 Months Allergies No known active allergies Medications diazePAM (VALIUM) 5 mg tabletIndicatio ns:Muscle Spasm Take 1 tablet (5 mg total) by mouth every 6 (six) hours as needed for anxiety 5 tablet 07/06/2022 Active amoxicillin-cla vulanate (AUGMENTIN) 875-125 mg per tabletIndicatio ns:Upper Respiratory/AC NT Infection Take 1 tablet by mouth 2 (two) times a day for 10 days 20 tablet 05/05/2024 05/15/19 Active Problems No known active problems Social History Tobacco Use Types Packs/Day Years Used Date Smoking Tobacco: Never Tobacco Cessation:Counseling Given: Not Answered Personal Safety Answer Date Recorded Have you ever been in or are you currently in a harmful physical or emotional relationship or is someone making you feel afraid or unsafe? Denies 05/05/2024 Comments Unknown Sex and Gender Information Value Date Recorded Sex Assigned at Not on file Legal Sex Female 9:03 PM CELLOPHANE BAG MACHINE OPERATOR Gender Identity Not on file Sexual Orientation Not on file Last Filed Vital Signs Vital Sign Reading Time Taken Comments Blood Pressure 123/70 05/05/2024 8:00 AM CELLOPHANE BAG MACHINE OPERATOR Pulse 98 05/05/2024 8:00 AM CELLOPHANE BAG MACHINE OPERATOR Temperature 36.9 C (98.4 F) 05/05/2024 5:39 AM CELLOPHANE BAG MACHINE OPERATOR Respiratory Rate 16 05/05/2024 8:00 AM CELLOPHANE BAG MACHINE OPERATOR Oxygen Saturation 95% 05/05/2024 8:00 AM CELLOPHANE BAG MACHINE OPERATOR Inhaled Oxygen Concentration - - Weight 75.8 kg (167 lb) 05/05/2024 4:36 AM CELLOPHANE BAG MACHINE OPERATOR Height 170.2 cm (5' 7 ) 05/05/2024 4:36 AM CELLOPHANE BAG MACHINE OPERATOR Body Mass Index 26.16 05/05/2024 4:36 AM CELLOPHANE BAG MACHINE OPERATOR Plan of Treatment Not on file Procedures Procedure Name Priority Date/Time Associated Diagnosis Comments ECG 12-LEAD STAT 05/05/2024 3:25 PM CELLOPHANE BAG MACHINE OPERATOR CT HEAD WO CONTRAST ED 05/05/2024 8 :19 AM CELLOPHANE BAG MACHINE OPERATOR EGFR STAT 05/05/2024 8:08 AM CELLOPHANE BAG MACHINE OPERATOR DIFFERENTIAL AUTO STAT 05/05/2024 8:0 8 AM CELLOPHANE BAG MACHINE OPERATOR CREATINE KINASE (CK), TOTAL STAT 05/05/2024 8:08 AM CELLOPHANE BAG MACHINE OPERATOR TROPONIN I HIGH-SENSITIVITY SERIES (BASELINE, 2HR, 4HR, 6HR) STAT 05/05/2024 8:08 AM CELLOPHANE BAG MACHINE OPERATOR COMPREHENSIVE METABOLIC PANEL STAT 05/05/2024 8:08 AM CELLOPHANE BAG MACHINE OPERATOR CBC WITH AUTO DIFFERENTIAL STAT 05/05/2024 8:08 AM CELLOPHANE BAG MACHINE OPERATOR POCT GLUCOSE DEVICE Routine 05/05/2024 4 :38 AM CELLOPHANE BAG MACHINE OPERATOR SCREENING MAMMOGRAM BILATERAL W FAUSTO Schedule Routine, Read Routine (OP Routine) 01/12/2024 11:24 AM CDT Screening mammogram, encounter for from Last 3 Months or Most Recently Relevant to Health Maintenance Results * ECG 12-LEAD (05/05/2024 3:25 PM CELLOPHANE BAG MACHINE OPERATOR) Narrative [facility] - 05/05/2024 3:25 PM CELLOPHANE BAG MACHINE OPERATOR Opal Stringer MD 05/05/2024 3:26 PM ECG 12 lead Date/Time: 05/05/2024 3:25 PM Performed by: Opal Stringer MD Authorized by: Jignesh Perkins MD Rate: ECG rate: 102 ECG rate assessment: normal Rhythm: Rhythm: sinus tachycardia Ectopy: Ectopy: none QRS: QRS axis: Normal Conduction: Conduction: normal ST segments: ST segments: Normal T waves: T waves: normal Q waves: Q waves: I Previous ECG: Previous ECG: Compared to current Date of previous EC07/06/2022 Similarity: No change Interpretation: Interpretation: non-specific Procedure Note Opal Stringer MD - 05/05/2024 10:30 AM CST Procedure ECG 12 lead Date/Time: 05/05/2024 3:25 PM Performed by: Opal Stringer MD Authorized by: Jignesh Perkins MD Rate: ECG rate: 102 ECG rate assessment: normal Rhythm: Rhythm: sinus tachycardia Ectopy: Ectopy: none QRS: QRS axis: Normal Conduction: Conduction: normal ST segments: ST segments: Normal T waves: T waves: normal Q waves: Q waves: I Previous ECG: Previous ECG: Compared to current Date of previous EC07/06/2022 Similarity: No change Interpretation: Interpretation: non-specific Opal Stringer MD 05/05/24 1526 us Jignesh Perkins MD ECG ORDERABLES Final Result [facility] * CT Head WO Contrast (05/05/2024 8:19 AM CELLOPHANE BAG MACHINE OPERATOR) Anatomical Region Laterality Modality Head and Neck N/A Computed Tomogra phy 05/05/2024 8:50 AM CELLOPHANE BAG MACHINE OPERATOR Impressions 05/05/2024 8:50 AM CELLOPHANE BAG MACHINE OPERATOR No acute intracranial process. Electronically signed by: Arlen Li MD Narrative 05/05/2024 8:50 AM CELLOPHANE BAG MACHINE OPERATOR EXAMINATION: CT head without contrast HISTORY: 68 years-old Female with Headache, new onset (Age >= 51y). TECHNIQUE: CT of the head was performed with images acquired from skull base to vertex without intravenous contrast. COMPARISON: None Available. FINDINGS: There is no acute intracranial hemorrhage. Ventricles are of normal size and morphology. No mass effect or midline shift is present. The santos-white matter differentiation is normal. Old fracture of the right lamina papyracea. The visualized portions of the orbits are otherwise normal. The visualized portions of the mastoids are normal. The visualized portions of the paranasal sinuses are normal. No fractures are identified. Procedure Note Arlen Li MD PhD - 05/05/2024 EXAMINATION: CT head without contrast HISTORY: 68 years-old Female with Headache, new onset (Age >= 51y). TECHNIQUE: CT of the head was performed with images acquired from skull base to vertex without intravenous contrast. COMPARISON: None Available. FINDINGS: There is no acute intracranial hemorrhage. Ventricles are of normal size and morphology. No mass effect or midline shift is present. The santos-white matter differentiation is normal. Old fracture of the right lamina papyracea. The visualized portions of the orbits are otherwise normal. The visualized portions of the mastoids are normal. The visualized portions of the paranasal sinuses are normal. No fractures are identified. IMPRESSION: No acute intracranial process. Electronically signed by: Arlen Li MD Jignesh Perkins MD [facility] PROCEDURES Final Resul t * Troponin I high-sensitivity series (baseline, 2hr, 4hr, 6hr) (05/05/2024 8:08 AM CELLOPHANE BAG MACHINE OPERATOR) Trop I hs <4 <=17 ng/L Comment: Interpretive Data For further hscTnI resources including the diagnostic algorithm and an aid in interpretation, copy and paste this link: https://bjhlab.testcatalog.org/show/[email or web address] Current Interpretive Data last revised 2019. Blood 05/05/2024 8:08 AM CELLOPHANE BAG MACHINE OPERATOR 05/05/2024 8:18 AM CELLOPHANE BAG MACHINE OPERATOR Jignesh Perkins MD LAB BLOOD ORDERABLES Final Re sult Performing Organization Address City/[facility]/ZIP Co de Phone Number [facility] [place] [address] * eGFR (05/05/2024 8:08 AM CELLOPHANE BAG MACHINE OPERATOR) eGFR >90 >=60 mL/min/1. 73 m2 Comment: Interpretive Data Reference Interval Normal >/= 90 mL/min/1.73m2 Mildly decreased* 60 - 89 mL/min/1.73m2 Mildly to moderately decreased 45 - 59 mL/min/1.73m2 Moderately to severely decreased 30 - 44 mL/min/1.73m2 Severely decreased 15 - 29 mL/min/1.73m2 Kidney Failure < 15 mL/min/1.73m2 *Relative to young adult level Estimated glomerular filtration rate is determined by the 2020 CKD-EPI equation recommended by the National Kidney Foundation (A Unifying Approach to GFR Estimation: Recommendations of the NKF-ASK Task Force on Reassessing the Inclusion of Race in Diagnosing Kidney Disease, JASN 2020). The CKD-EPI equation should not be used for patients with unstable renal function and has not been validated in children and those over 70. Current interpretive data was last reviewed 2021. Blood 05/05/2024 8:08 AM CELLOPHANE BAG MACHINE OPERATOR 05/05/2024 8:18 AM CELLOPHANE BAG MACHINE OPERATOR Jignesh Perkins MD LAB BLOOD ORDERABLES Final Re sult Performing Organization Address City/[facility]/ZIP Co de Phone Number [facility] [place] [address] * (ABNORMAL) Differential, auto (05/05/2024 8:08 AM CELLOPHANE BAG MACHINE OPERATOR) Neutrophil abs 12.4(H) 1.5 - 6.5 K/cumm Imm gran abs 0.1 0.0 - 0.1 K/cumm [facility] Lymphocyte abs 1.8 0.8 - 3.3 K/cumm [facility] Monocyte abs 1.0(H) 0.2 - 0.8 K/cumm [facility] Eosinophil abs 0.0 0.0 - 0.5 K/cumm [facility] Basophil abs 0.0 0.0 - 0.1 K/cumm [facility] Neutrophil pct 80.7 % [facility] Comment: Interpretive Data Percent cell count reference ranges are not reported, since discordance with absolute values may lead to misinterpretation of CBC data. Current Interpretive Data was last revised on 2017. Imm gran pct 0.4 % [facility] Comment: Interpretive Data Percent cell count reference ranges are not reported, since discordance with absolute values may lead to misinterpretation of CBC data. Current Interpretive Data was last revised on 2017. Lymphocyte pct 12.0 % [facility] Comment: Interpretive Data Percent cell count reference ranges are not reported, since discordance with absolute values may lead to misinterpretation of CBC data. Current Interpretive Data was last revised on 2017. Monocyte pct 6.3 % [facility] Comment: Interpretive Data Percent cell count reference ranges are not reported, since discordance with absolute values may lead to misinterpretation of CBC data. Current Interpretive Data was last revised on 2017. Eosinophil pct 0.3 % [facility] Comment: Interpretive Data Percent cell count reference ranges are not reported, since discordance with absolute values may lead to misinterpretation of CBC data. Current Interpretive Data was last revised on 2017. Basophil pct 0.3 % [facility] Comment: Interpretive Data Percent cell count reference ranges are not reported, since discordance with absolute values may lead to misinterpretation of CBC data. Current Interpretive Data was last revised on 2017. Blood 05/05/2024 8:08 AM CELLOPHANE BAG MACHINE OPERATOR 05/05/2024 8:18 AM CELLOPHANE BAG MACHINE OPERATOR us Jignesh Perkins MD LAB BLOOD ORDERABLES Final Re sult [facility] [place] [address] * (ABNORMAL) CBC with auto differential (05/05/2024 8:08 AM CELLOPHANE BAG MACHINE OPERATOR) WBC 15.4(H) 3.8 - 9.9 K/cumm Hgb 14.3 11.9 - 15.5 g/dL [facility] Hct 44.5 35.6 - 45.5 % [facility] Plt 355 150 - 400 K/cumm [facility] MPV 9.5 9.1 - 12.3 fL [facility] RBC 5.35(H) 3.90 - 5.20 M/cumm [facility] MCV 83.2 81.3 - 96.4 fL [facility] MCH 26.7(L) 27.1 - 33.3 pg [facility] MCHC 32.1(L) 32.3 - 35.7 g/dL [facility] RDW CV 14.1 11.1 - 14.9 % [facility] RDW SD 42.6 35.7 - 48.1 fL [facility] NRBC abs 0.00 0.00 - 0.01 K/cumm [facility] Blood 05/05/2024 8:08 AM CELLOPHANE BAG MACHINE OPERATOR 05/05/2024 8:18 AM CELLOPHANE BAG MACHINE OPERATOR Jignesh Perkins MD LAB BLOOD ORDERABLES Final Re sult Performing Organization Address [facility] Co de Phone Number [facility] [place] [address] * Creatine kinase (CK), total (05/05/2024 8:08 AM CELLOPHANE BAG MACHINE OPERATOR) Pathologist [facility] CK 49 30 - 200 Units/L Blood 05/05/2024 8:08 AM CELLOPHANE BAG MACHINE OPERATOR 05/05/2024 8:18 AM CELLOPHANE BAG MACHINE OPERATOR Jignesh Perkins MD LAB BLOOD ORDERABLES Final Re sult Performing Organization Address [facility]/ZIP Co de Phone Number [facility] [place] [address] * Comprehensive metabolic panel (05/05/2024 8:08 AM CELLOPHANE BAG MACHINE OPERATOR) Pathologist [facility] Sodium 140 135 - 145 mmol/L Potassium, pl 4.2 3.3 - 4.9 mmol/L [facility] Chloride 104 97 - 110 mmol/L [facility] CO2 27 22 - 32 mmol/L [facility] Anion gap 9 2 - 15 mmol/L [facility] BUN 13 6 - 25 mg/dL [facility] Creatinine 0.71 0.60 - 1.10 mg/dL [facility] Glucose 149 70 - 199 mg/dL [facility] Comment: Interpretive Data Fasting glucose >/= 126 mg/dl is diagnostic for diabetes. Fasting is defined as no caloric intake for at least 8 hours. Fasting glucose between 100 mg/dl to 125 mg/dl is diagnostic of prediabetes. In a patient with classic symptoms of hyperglycemia or hyperglycemic crisis, a random glucose >/= 200 mg/dl is diagnostic for diabetes. In the absence of unequivocal hyperglycemia, results should be confirmed by repeat testing. The classification and Diagnosis of Diabetes Diabetes Care 2021; 46: S19-S40. Current interpretive data was last revised 2022. Calcium 9.9 8.5 - 10.3 mg/dL [facility] Bilirubin, total 0.5 0.1 - 1.2 mg/dL [facility] Protein, pl 8.0 6.5 - 8.5 g/dL [facility] Albumin 4.4 3.5 - 5.0 g/dL [facility] Alk phos 108 40 - 130 Units/L [facility] ALT 15 7 - 45 Units/L [facility] AST 21 10 - 45 Units/L [facility] Blood 05/05/2024 8:08 AM CELLOPHANE BAG MACHINE OPERATOR 05/05/2024 8:18 AM CELLOPHANE BAG MACHINE OPERATOR us Jignesh Perkins MD LAB BLOOD ORDERABLES Final Re sult [facility] Department [place] [address] * POCT glucose (05/05/2024 4:38 AM CELLOPHANE BAG MACHINE OPERATOR) Glucose, POC 149 70 - 199 mg/dL Blood 05/05/2024 4:38 AM CELLOPHANE BAG MACHINE OPERATOR 05/05/2024 4:38 AM CELLOPHANE BAG MACHINE OPERATOR us Notinfile Unknown LAB POCT ORDERABLES - DEVICE F inal Result [facility] Department [place] [address] * Screening Mammogram Bilateral W Fausto (01/12/2024 11:24 AM CDT) Anatomical Region Laterality Modality Breast Bilateral Mammography Narrative 01/13/2024 1:05 PM CDT Mammogram Technique: Bilateral Digital Breast Tomosynthesis, Bilateral C-view 2D Screening mammogram. Views obtained: bilateral craniocaudal and bilateral mediolateral oblique. Computer Aided Detection was performed. Mammogram Findings: The present examination has been compared to prior imaging studies performed at [facility] on 12/29/2020 and 12/27/2022, and at [facility] on 11/24/2018. There are scattered areas of fibroglandular density. There is no suspicious abnormality in either breast. Impression: There is no mammographic evidence of malignancy. Annual screening mammography is recommended. OVERALL FINAL ASSESSMENT: BI-RADS CATEGORY 1: Negative. Procedure Note Suyapa Lea MD - 01/13/2024 Mammogram Technique: Bilateral Digital Breast Tomosynthesis, Bilateral C-view 2D Screening mammogram. Views obtained: bilateral craniocaudal and bilateral mediolateral oblique. Computer Aided Detection was performed. Mammogram Findings: The present examination has been compared to prior imaging studies performed at [facility] on 12/29/2020 and 12/27/2022, and at [facility] on 11/24/2018. There are scattered areas of fibroglandular density. There is no suspicious abnormality in either breast. Impression: There is no mammographic evidence of malignancy. Annual screening mammography is recommended. OVERALL FINAL ASSESSMENT: BI-RADS CATEGORY 1: Negative. us Self Screening Mammogram IMG MAMMO PROCEDURES Fi nal Result from Last 3 Months or Most Recently Relevant to Health Maintenance Insurance [facility] HMO/POS [facility] HMO/PPO Address: [address] [address] [place] [address] [facility] ACCESS [facility] CHO[employer] MEDIC[employer] SOLUTIONS [facility] MEDICARE SOLUTIONS Care Teams Assistant Produce Manager Relationship Specialty Start Date End Date Daron Sultana MD PCP - General 07/28/17
--- OUTSIDE RECORDS SUMMARY | 2024-06-08 19:03 | XMS_ITS | Clinical Summary ---
Author Organization [facility] [employer] Address [address] [place] [address] Care Team Providers Care Senior Hardware Engineer Name Role Phone Daron Sultana MD Primary Care Provider [phone] Source Comments [facility],non-owned Affiliates and Associated Physician Practices is amultiple site organization consisting of ambulatory clinics and hospital sitesin [place], [place], [place] and [place]. This disclosure is being madepursuant to the Care Everywhere program and may not contain all information available regarding this patient. Last updated 18.[employer] Allergies No known active allergies Medications * Be aware that medications may not be up to date on this document. Alwaysverify current medications with the patient. Medication Sig Dispensed Refills Start Date End Date Status azithromycin (ZITHROMAX) 250 MG tablet Take 2 tablets(500 mg) by mouth today, then one tablet(250 mg) by mouth for the next four days 6 Tab 0 08/28/2014 Active albuterol HFA (PROVENTIL;VENTOLIN; PROAIR) 108 (90 BASE) MCG/ACT inhaler Inhale 2 Puffs by mouth every 4 hours as needed for Shortness of Breath or Wheezing. 1 Inhaler 1 08/28/2014 Active Social History Tobacco Use Types Packs/Day Years Used Date Smoking Tobacco: Never Assessed Sex and Gender Information Value Date Recorded Sex Assigned at Not on file Gender Identity Not on file Sexual Orientation Not on file Last Filed Vital Signs Vital Sign Reading Time Taken Comments Blood Pressure 159/72 08/28/2014 11:46 AM CDT Pulse 74 08/28/2014 11:46 AM CDT Temperature 38.1 C (100.5 F) 08/28/2014 11:46 AM CDT Respiratory Rate 18 08/28/2014 11:46 AM CDT Oxygen Saturation 100% 08/28/2014 11:46 AM CDT Inhaled Oxygen Concentration - - Weight 83.9 kg (185 lb) 08/28/2014 10:25 AM CDT Height 170.2 cm (5' 7.01 ) 08/28/2014 10:25 AM C DT Body Mass Index 28.97 08/28/2014 10:25 AM CDT Plan of Treatment Health Maintenance Due Date Last Done Comments BONE DENSITY TESTING 1955 COLOGUARD (AGES 45-75) - COL ON CA SCREENING 1955 COLON MONITORING 1956 COLONOSCOPY - COLON CA SCREENING 1956 CT COLONOGRAPHY - COLON CA SCREENING 1955 Colorectal Cancer Screening 1955 FIT - COLON CA SCREENING 1956 FLEX SIG - COLON CA SCREENING 1956 LIPID TESTING 1955 MAMMOGRAM 1955 HEPATITIS C SCREENING 11/12/1974 DTAP/TDAP/TD VACCINES (1 - Tdap) 11/17/1975 PNEUMOCOCCAL VACCINE 50+ (1 of 1 - PCV) 2006 ZOSTER VACCINE (1 of 2) 2006 COVID-19 VACCINE (1 - 2023-2 5 season) 2023 INFLUENZA VACCINE (#1) 2023 DEPRESSION SCREENING 04/14/2024 MEDICARE AWV CALENDAR YEAR 2024 Respiratory Syncytial Virus (RSV) Vaccine Pt: or over 60 yrs (1 - 1-dose 75+ series) 11/17/2031 HEPATITIS B VACCINE Aged Out No longe r eligible based on patient's age to complete this topic HIB VACCINE Aged Out No longer eligi ble based on patient's age to complete this topic HPV VACCINE Aged Out No longer eligi ble based on patient's age to complete this topic MENINGOCOCCAL (Group B) VACCINE Aged Out No longer eligible based on patient's age to complete this topic MENINGOCOCCAL VACCINE Aged Out No natasha lotus eligible based on patient's age to complete this topic Care Teams Senior Hardware Engineer Relationship Specialty Start Date End Date Daron Sultana MD [address] [place] [address] PCP - General Family Medicine 08/28/14
--- OUTSIDE RECORDS SUMMARY | 2024-06-08 19:03 | XMS_ITS | Clinical Summary ---
Author Organization [facility] Robert valentino [facility] Address [address] [address] Care Team Providers Care Station Engineer Chief Name Role Phone Daron Sultana MD Primary Care Provider [phone] Allergies No known active allergies Medications tirzepatide (MOUNJARO SUBCUT) Inject by subcutaneous injection. Active dapagliflozin propanediol (FARXIGA ORAL) Take by mouth. Active lisinopriL (PRINIVIL) 2.5 mg tablet Take 1 Tablet by mouth daily. Active Active Problems No known active problems Encounters Date Type Department Care Team Description 06/02/2024 External Device Data [facility] ABSTRACTION Provider, Abstract 05/05/2024 External Device Data [facility] ABSTRACTION Provider, Abstract 05/05/2024 External Device Data [facility] ABSTRACTION Provider, Abstract from Last 3 Months Family History Medical History Relation Name Comments Lung Cancer Father Cancer Mother Heart Disease Mother No Known Problems Sister Relation Name Status Comments Father Mother Sister Alive Social History Tobacco Use Types Packs/Day Years Used Date Smoking Tobacco: Never Tobacco Cessation:Counseling Given: Not Answered Alcohol Use Standard Drinks/Week Comments Yes 0 (1 standard drink = 0.6 oz pur e alcohol) socially Comments Unknown Sex and Gender Information Value Date Recorded Sex Assigned at Not on file Legal Sex Female 8:21 AM CDT Gender Identity Not on file Sexual Orientation Not on file Last Filed Vital Signs Vital Sign Reading Time Taken Comments Blood Pressure 173/85 03/03/2024 10:46 AM METAL POURER patient did not take BP meds today Pulse 70 03/03/2024 10:46 AM METAL POURER Temperature 36.4 C (97.5 F) 03/03/2024 10:46 AM METAL POURER Respiratory Rate 16 03/03/2024 10:4 6 AM METAL POURER Oxygen Saturation 98% 03/03/2024 10: 46 AM METAL POURER Inhaled Oxygen Concentration - - Weight 73.5 kg (162 lb) 03/03/2024 10:4 6 AM METAL POURER Height 170.2 cm (5' 7 ) 11/18/2023 1:23 PM CDT Body Mass Index 25.37 11/18/2023 1:23 PM CDT Plan of Treatment Upcoming Encounters Date Type Department Care Team (Late st Contact Info) Description 06/09/2024 3:45 PM METAL POURER Office Visit [facility] Oncology and Hematology - [place] [address] [facility] [address] [place] [address] Thomas Wilkes MD [address] [facility] [facility] [address] [place] [address] Health Maintenance Due Date Last Done Comments Pre-Diabetes and Diabetes Screening 1955 DTAP/TDAP/TD VACCINES (1 - Tdap) 11/17/1975 BREAST CANCER SCREENING 1996 PNEUMOCOCCAL VACCINE 65+ YEARS (1 of 1 - PCV) 11/17/19 07 ZOSTER VACCINE (1 of 2) 2006 RSV VACCINE (60+ or ) (1 - Risk 60-74 years 1-dose series) 2016 OSTEOPOROSIS SCREENING 2021 INFLUENZA VACCINE (#1) 2023 Preventative Visit- Commercial 04/14/2024 Insurance [facility] CHOICE [id number] [employer] [employer] H[employer] Care Teams Station Engineer Chief Relationship Specialty Start Date End Date Daron Sultana MD [address] [place] [address] PCP - General Family Practice 03/03/24
--- OUTSIDE RECORDS SUMMARY | 2024-06-08 19:03 | XMS_ITS | Referral Summary ---
Author Organization [facility] Address [address] [place] [address] Care Team Providers Care Sinker Winder Name Role Phone Daron Sultana MD Primary Care Provider [phone] Source Comments [facility],non-owned Affiliates and Associated Physician Practices is amultiple site organization consisting of ambulatory clinics and hospital sitesin [place], [place], [place] and [place]. This disclosure is being madepursuant to the Care Everywhere program and may not contain all information available regarding this patient. Last updated 18.[employer] Allergies No known active allergies Medications * [...] 08/28/2014 10:25 AM CDT Plan of Treatment Not on file Care Teams Sinker Winder Relationship Specialty Start Date End Date Daron Sultana MD [address] [place] [address] PCP - General Family Medicine 08/28/14
--- OUTSIDE RECORDS SUMMARY | 2024-06-08 19:03 | XMS_ITS | Patient Health Summary ---
Author Organization [facility] [employer] Address [address] [place] [address] Care Team Providers Care Ancillary Services Manager Name Role Phone Daron Sultana MD Primary Care Provider [phone] Note from [facility],non-owned Affiliates and Associated Physician Practices is amultiple site organization consisting of ambulatory clinics and hospital sitesin [place], [place], [place] and [place]. This disclosure is being madepursuant to the Care Everywhere program and may not contain all information available regarding this patient. Last updated 18.[facility] Allergies No known active allergies Medications * Be aware that medications may not be up to date on this document. Alwaysverify current medications with the patient. * azithromycin (ZITHROMAX) 250 MG tablet(Started 08/28/2014) Take 2 tablets(500 mg) by mouth today, then one tablet(250 mg) by mouth for the next four days * albuterol HFA (PROVENTIL;VENTOLIN;PROAIR) 108 (90 BASE) MCG/ACT inhaler (Started 08/28/2014) Inhale 2 Puffs by mouth every 4 hours as needed for Shortness of Breath or Wheezing. 1 refill left Social History Tobacco Use Types Packs/Day Years [...] Mass Index 28.97 08/28/2014 10:25 AM CDT Procedures * CT SINUS WO CONTRAST(Performed 12/23/2016) * EKG 12-LEAD(Performed 08/28/2014) Performed for Cough * XR CHEST 2VW(Performed 08/28/2014) Performed for Cough * GLUCOSE ACCUCHECK(Performed 12/06/2013) * GLUCOSE ACCUCHECK(Performed 12/06/2013) * BASIC METABOLIC PANEL (CALCIUM TOTAL)(Performed 12/06/2013) * CBC W AUTO DIFFERENTIAL(Performed 12/06/2013) * CBC W AUTO DIFFERENTIAL(Performed 12/06/2013) * CCL CARDIAC CATH LEFT(Performed 12/06/2013) * ECHO DOPPLER ONLY(Performed 12/06/2013) * GLUCOSE ACCUCHECK(Performed 12/05/2013) * GLUCOSE ACCUCHECK(Performed 12/05/2013) * XR PELVIS W LEFT HIP 2VW(Performed 12/05/2013) * GLUCOSE ACCUCHECK(Performed 12/05/2013) * BASIC METABOLIC PANEL (CALCIUM TOTAL)(Performed 12/05/2013) * CBC W AUTO DIFFERENTIAL(Performed 12/05/2013) * CBC W AUTO DIFFERENTIAL(Performed 12/05/2013) * GLUCOSE ACCUCHECK(Performed 12/05/2013) * ECHO STRESS W DOBUTAMINE(Performed 12/05/2013) * GLUCOSE ACCUCHECK(Performed 12/04/2013) * TROPONIN I(Performed 12/04/2013) * CK + CKMB PANEL(Performed 12/04/2013) * URINALYSIS W/MICROSCOPIC NO CULTURE(Performed 12/04/2013) * CT ANGIO AORTA FOR DISSECTION(Performed 12/04/2013) * XR CHEST 1VW PORTABLE(Performed 12/04/2013) * TYPE + SCREEN PANEL(Performed 12/04/2013) * CK + CKMB PANEL(Performed 12/04/2013) * TROPONIN I(Performed 12/04/2013) * PT-INR [facility](Performed 12/04/2013) * PTT [facility](Performed 12/04/2013) * BASIC METABOLIC PANEL (CALCIUM TOTAL)(Performed 12/04/2013) * HEPATIC FUNCTION PANEL(Performed 12/04/2013) * PHOSPHORUS BLOOD(Performed 12/04/2013) * MAGNESIUM BLOOD(Performed 12/04/2013) * LIPASE BLOOD(Performed 12/04/2013) * LACTIC ACID BLOOD(Performed 12/04/2013) * BLOOD GASES PETERSON(Performed 12/04/2013) * CBC W AUTO DIFFERENTIAL(Performed 12/04/2013) * CBC W AUTO DIFFERENTIAL(Performed 12/04/2013) * EKG 12-LEAD(Performed 12/04/2013) * EKG 12-LEAD(Performed 12/04/2013) Results * CT SINUS WO CONTRAST (12/23/2016 8:22 AM CDT) Anatomical Region Laterality Modality Head Other Impressions 12/24/2016 12:53 PM CDT IMPRESSION: 1. No acute facial bone fractures or soft tissue abnormality identified. This report was approved by Branden Jimenez on 12/24/2016 12:17 PM . I, Dr. NAHOMY KEARNEY M.D. have personally reviewed and interpreted this examination/study. This report was electronically signed by NAHOMY KEARNEY M.D. on 12/24/2016 12:53 PM . Narrative 12/24/2016 12:53 PM CDT EXAMINATION: Computed tomography (CT) of the maxillofacial bones, orbits, and paranasal sinuses without contrast HISTORY: Nasal polyp TECHNIQUE: CT of the maxillofacial bones, orbits, and paranasal sinuses was performed without contrast according to standard protocol. FINDINGS: No prior study is available for comparison at the time of this dictation. Other than an old right lamina papyracea and orbital floor fracture, the orbits appear normal. There is some mucosal thickening within the left maxillary sinus. Otherwise, the paranasal sinuses are clear. The hard palate, mandible, and temporomandibular joints appear normal. Periodontal disease is present. No acute facial bone fractures are identified. The mastoid air cells are clear. The nasal septum is deviated to the right without occlusion of the right nasal cavity. Mild periventricular white matter disease is seen in the visualized portion of the brain. Procedure Note Nahomy Kearney MD - 07/11/2017 EXAMINATION: Computed tomography (CT) of the maxillofacial bones, orbits,and paranasal sinuses without contrast HISTORY: Nasal polyp TECHNIQUE: CT of the maxillofacial bones, orbits, and paranasal sinuseswas performed without contrast according to standard protocol. FINDINGS: No prior study is available for comparison at the time of thisdictation. Other than an old right lamina papyracea and orbital floor fracture, theorbits appear normal. There is some mucosal thickening within the leftmaxillary sinus. Otherwise, the paranasal sinuses are clear. The hardpalate, mandible, and temporomandibular joints appear normal. Periodontal disease is present. No acute facial bonefractures are identified. The mastoid air cells are clear. The nasalseptum is deviated to the right without occlusion of the right nasalcavity. Mild periventricular white matter disease is seen in the visualized portion of the brain. IMPRESSION IMPRESSION: 1. No acute facial bone fractures or soft tissue abnormality identified. This report was approved by [facility] on 12/24/2016 12:17 PM . I, Dr. NAHOMY KEARNEY M.D. have personally reviewed and interpreted thisexamination/study. This report was electronically signed by NAHOMY KEARNEY M.D. on 12/24/201612:53 PM . Historical Provider [address] ORDERABLES * EKG 12-LEAD (08/28/2014 10:49 AM CDT) Only the most recent of3 resultswithin the time period is included. Ventricular Rate 95 BPM [facility] Atrial Rate 95 BPM [facility] P-R Interval 148 ms [facility] QRS Duration ms 92 ms [facility] Q-T Interval ms 332 ms [facility] QTC Calculation (Bezet) 417 ms [facility] Calculated P [place] 44 degrees [facility] Calculated R [place] -2 degrees [facility] Calculated T [place] 18 degrees [facility] Interpretation EKG NORMAL SINUS RHYTHM POSSIBLE LEFT ATRIAL ENLARGEMENT LEFT VENTRICULAR HYPERTROPHY ABNORMAL ECG NO PREVIOUS ECGS AVAILABLE Confirmed by MD David, eJrry ([id number]) on 08/29/2014 7:43:09 AM [facility] MUSE 08/28/2014 10:4 9 AM CDT 08/29/2014 7:43 AM CDT Allen Mcdonald DO ECG ORDERABLES Performing Organization Address City[facility] Co de Phone Number [facility] * XR CHEST PA AND LATERAL (08/28/2014 10:10 AM CDT) Anatomical Region Laterality Modality Chest Radiographic Re ging 08/28/2014 10:2 5 AM CDT Impressions 08/28/2014 10:25 AM CDT Clear lungs. Narrative 08/28/2014 10:25 AM CDT Chest x-ray 2 views. History: Cough. 2 views of the chest show normal heart size with normal vessels. Lungs are clear. Procedure Note Luis Manuel Catrer MD - 08/28/2014 Chest x-ray 2 views. History: Cough. 2 views of the chest show normal heart size with normal vessels. Lungs are clear. IMPRESSION Clear lungs. Allen Mcdonald DO DIAGNOSTIC IMAGING O RDERABLES * (ABNORMAL) GLUCOSE ACCUCHECK (12/06/2013 5:02 PM CDT) Only the most recent of7 resultswithin the time period is included. Glucose, Fingerstick 237(H) 70-115mg/d L mg/dL [facility] ([facility]) Comment:Threat Analyst: FLORENCE GALAVIZ PETRA 12/06/2013 5:02 PM CDT Connor Mendez MD LAB - CHEMISTRY ADRIANA SPANGLER Performing Organization Address [facility] Co de Phone Number [facility] ([facility]) * (ABNORMAL) CBC W AUTO DIFFERENTIAL (12/06/2013 6:02 AM CDT) Only the most recent of6 resultswithin the time period is included. WBC 6.2 3.5 - 10.5 10 3/uL [facility] Comment:Results are confirme d by repeat analysis. RBC 4.95 3.90 - 5.00 10 6/uL [facility] Hemoglobin 13.2 12.0 - 15.5 g/dL [facility] Hematocrit 40.5 35.0 - 45.0 % [facility] MCV 81.8 81.0 - 97.0 fL [facility] MCH 26.7(L) 28.0 - 34.0 pg [facility] MCHC 32.6 32.0 - 36.0 g/dL [facility] Platelet Count 307 150 - 400 10 3/uL [facility] RDW-SD 40.8 36.0 - 50.0 fL [facility] RDW-CV 13.6 11.2 - 14.8 % [facility] MPV 10.3 9.3 - 12.8 fL [facility] nRBC Absolute 0.00 0 10 3/uL [facility] nRBC Auto 0.0 0 /100 WBC [facility] RET-HE 28.9 pg [facility] Neutrophils % 49.7 35.0 - 70.0 % [facility] Lymphocytes % 39.6 19.7 - 55.1 % [facility] Monocytes % 8.2 3.0 - 15.0 % [facility] Eosinophils % 2.1 0.0 - 6.0 % [facility] Basophil % 0.2 0.0 - 1.5 % [facility] Neutrophils Absolute 3.1 1.6 - 7.0 10 3/uL [facility] Lymphocyte Absolute 2.5 0.8 - 2.9 10 3/uL [facility] Monocytes Absolute 0.51 0.14 - 0.66 10 3/uL [facility] Eosinophils Absolute 0.13 0.00 - 0.22 10 3/uL [facility] Basophils Absolute 0.01 0.00 - 0.06 10 3/uL [facility] Immature Granulocytes % 0.2 0.0 - 1.0 % [facility] Blood specimen (specimen) BLOOD SPECIMEN / Unknown 12/06/2013 6:02 AM CDT 12/06/2013 6:23 AM CDT Abdias Milan MD LAB - HEMATOLOGY ORD ERABLES [facility] [address] [place] [address] * (ABNORMAL) BASIC METABOLIC PANEL (CALCIUM TOTAL) (12/06/2013 6:02 AM CDT) Only the most recent of3 resultswithin the time period is included. BUN 11 7 - 26 mg/dL [facility] Anion Gap 16 8 - 18 [facility] BUN/Creatinine Ratio 18 7 - 23 [facility] Osmolality Calculated 283 270 - 300 mOsm/kg [facility] Creatinine 0.6 0.6 - 1.2 mg/dL [facility] Sodium 142 136 - 145 mmol/L [facility] Potassium 3.5 3.5 - 4.5 mmol/L [facility] Chloride 104 98 - 107 mmol/L [facility] CO2 26 22 - 29 mmol/L [facility] Glucose 187(H) 70 - 115 mg/dL [facility] Calcium 9.5 8.4 - 10.2 mg/dL [facility] eGFR >60 >60 mL/min/1.7 3 m2 [facility] Blood specimen (specimen) BLOOD SPECIMEN / Unknown 12/06/2013 6:02 AM CDT 12/06/2013 6:24 AM CDT Abdias Milan MD LAB - CHEMISTRY ADRIANA SPANGLER [facility] Organization Address City/State/ZIP Co de Phone Number [facility] [address] [place] [address] * ECHO DOPPLER ONLY (12/06/2013 12:00 AM CDT) Anatomical Region Laterality Modality Other 12/06/2013 Connor Mendez MD ECHOCARDIOGRAPHY RAD IANT * CCL CARDIAC CATHETERIZATION LEFT (12/06/2013 12:00 AM CDT) Anatomical Region Laterality Modality X-Ray Angiograph y 12/06/2013 Connor Mendez MD CARDIAC CAMERA TECHNICIAN RAD IANT * XR PELVIS W LEFT HIP 2VW (12/05/2013 2:27 PM CDT) Anatomical Region Laterality Modality Other Impressions 12/06/2013 10:46 AM CDT Impression: Mild degenerative changes of the left hip joint. This report has been dictated by Ioana Carlin MD. (Costume Shop Manager). Dr. TABBY Perdomo M.D. have personally reviewed and interpreted this examination/study. This report was electronically signed by TABBY WILSON M.D. on 12/06/2013 10:46 AM . Narrative 12/06/2013 10:46 AM CDT Exam: XR HIP LEFT 2+ VW Date: 12/05/2013; 2:28 PM History: Hip pain Comparison: No prior study is available for comparison. Findings: The alignment is normal. There is no acute fracture or dislocation. There is mild narrowing of the left hip joint space. No soft tissue abnormality is seen. Procedure Note Tabby Wilson MD - 07/12/2017 Exam: XR HIP LEFT 2+ VW Date: 12/05/2013; 2:28 PM History: Hip pain Comparison: No prior study is available for comparison. Findings: The alignment is normal. There is no acute fracture or dislocation. Thereis mild narrowing of the left hip joint space. No soft tissue abnormalityis seen. IMPRESSION Impression: Mild degenerative changes of the left hip joint. This report has been dictated by Ioana Carlin MD. (RadiologyResident). Dr. TABBY Perdomo M.D. have personally reviewed and interpreted thisexamination/study. This report was electronically signed by TABBY WILSON M.D. on 12/06/201310:46 AM . Connor Mendez MD DIAGNOSTIC IMAGING O RDERABLES * ECHO STRESS TEST W DOBUTAMINE (12/05/2013 12:00 AM CDT) Anatomical Region Laterality Modality Other 12/05/2013 Connor Mendez MD ECHOCARDIOGRAPHY RAD IANT * TROPONIN I (12/04/2013 9:00 PM CDT) Only the most recent of2 resultswithin the time period is included. Troponin I <0.032 <0.032 ng/mL [facility] Blood specimen (specimen) BLOOD SPECIMEN / Unknown 12/04/2013 9:00 PM CDT 12/04/2013 9:00 PM CDT Connor Mendez MD LAB - CHEMISTRY ADRIANA SHANDRAALEK [address] [phone] * CK + CKMB PANEL (12/04/2013 9:00 PM CDT) Only the most recent of2 resultswithin the time period is included. CK Total 52 30 - 200 Units/L [facility] CK-MB 0.6 0.0 - 6.6 ng/mL [facility] Blood specimen (specimen) BLOOD SPECIMEN / Unknown 12/04/2013 9:00 PM CDT 12/04/2013 9:00 PM CDT Connor Mendez MD LAB - CHEMISTRY ADRIANA SPANGLER Performing Organization Address City/[facility]/ZIP Co de Phone Number [address] [phone] * (ABNORMAL) URINALYSIS W/MICROSCOPIC NO CULTURE (12/04/2013 2:45 PM CDT) Color UA Yellow Straw, Yellow, Colorless, Light Yellow [facility] Clarity UA Clear Clear [facility] Specific [place] UA >1.040(H) 1.001 - 1.030 [facility] pH UA 6.0 5.0 - 8.0 [facility] Protein UA Negative <=20 mg/dL [facility] Glucose UA >1000(A) Negative mg/dL [facility] Ketone UA Negative Negative mg/dL [facility] Bilirubin UA Negative Negative mg/dL [facility] Blood UA Negative Negative [facility] Nitrite UA Negative Negative [facility] Leukocyte Esterase Negative Negative [facility] Urobilinogen UA <2.0 <2.0 mg/dL [facility] RBC UA 1 0 - 8 /HPF [facility] WBC UA <1 0 - 2 /HPF [facility] Squamous Epithelial Cells UA 1 0 - 1 /HPF [facility] Mucus UA Occasional( A) None /LPF [facility] Urine specimen (specimen) 12/04/2013 2:45 PM CDT 12/04/2013 2:50 PM CDT Narrative [facility] - 12/04/2013 2:59 PM CDT Specific gravity results confirmed by refractometer. Abdias Milan MD LAB - URINALYSIS ORD ERABLES [facility] [address] [place] [address], [facility] [phone] * CT ANGIO AORTA FOR DISSECTION (12/04/2013 12:49 PM CDT) Anatomical Region Laterality Modality Other Impressions 12/04/2013 3:49 PM CDT IMPRESSION: 1. No evidence of acute intramural hematoma, penetrating aortic ulcer, dissection, or aneurysm in the aorta 2. Hepatic steatosis 3. No evidence of acute process in the chest, abdomen, or pelvis. Report Dictated by Ba Huff M.D. (Costume Shop Manager) I, Dr. EMILIA MEREDITH M.D. have personally reviewed and interpreted this examination/study. This report was electronically signed by EMILIA MEREDITH M.D. on 12/04/2013 3:49 PM . Narrative 12/04/2013 3:49 PM CDT EXAMINATION: Computed tomography of the chest, abdomen and pelvis without and with contrast, dissection protocol HISTORY: chest pain, arm pain, abdominal pain, radiating to back TECHNIQUE: Computed tomography of the chest, abdomen, and pelvis was performed before and following the uneventful administration of 75 ml Omnipaque 350 intravenous contrast according to dissection protocol. FINDINGS: No comparison is available. Vascular: There is no evidence of acute intramural hematoma, penetrating aortic ulcer, dissection, or aneurysm in the aorta. The celiac axis including the splenic artery, common and proper hepatic arteries with distal hepatic artery branches are unremarkable. There are single renal arteries identified bilaterally with normal parenchymal branching pattern. An accessory right renal artery is identified. There is no evidence of renal artery ostial or segmental stenosis. The superior mesenteric artery and proximal branches are unremarkable. Normal renal veins in the standard anatomic location are visualized. Chest: The lungs are free of focal consolidations. Bibasilar dependent atelectasis is present. No suspicious pulmonary nodules are visible. There is no pleural effusion or pneumothorax. The great vessels are normal in course and caliber. The heart size is normal. There is no pericardial effusion. There is no supraclavicular, axillary, mediastinal or hilar lymphadenopathy. Abdomen and Pelvis: The liver is diffusely hypoattenuating consistent with steatosis. Otherwise, within the limitations of an arterial phase examination, the liver, spleen, pancreas, and adrenal glands appear normal. The gallbladder is normal without evidence of gallstones or gallbladder wall thickening. There is no intrahepatic or extrahepatic biliary ductal dilatation. The kidneys enhance symmetrically bilaterally. There is no hydronephrosis or hydroureter. The stomach is normal. The small bowel and large bowel are normal in course and caliber without evidence of bowel wall thickening or bowel obstruction. The appendix is normal. There is no evidence of retroperitoneal lymphadenopathy. The abdominal aorta is normal in course and caliber. The remaining enhanced abdominal vascular structures are normal. No free intraperitoneal air is seen. The bladder is moderately distended with fluid. The uterus is surgically absent. There is no free fluid in the pelvis. Bone windows demonstrate no suspicious lytic or blastic lesions. Procedure Note Emilia Meredith MD - 07/12/2017 EXAMINATION: Computed tomography of the chest, abdomen and pelvis withoutand with contrast, dissection protocol HISTORY: chest pain, arm pain, abdominal pain, radiating to back TECHNIQUE: Computed tomography of the chest, abdomen, and pelvis wasperformed before and following the uneventful administration of 75 mlOmnipaque 350 intravenous contrast according to dissection protocol. FINDINGS: No comparison is available. Vascular: There is no evidence of acute intramural hematoma, penetrating aorticulcer, dissection, or aneurysm in the aorta. The celiac axis including the splenic artery, common and proper hepaticarteries with distal hepatic artery branches are unremarkable. There aresingle renal arteries identified bilaterally with normal parenchymalbranching pattern. An accessory right renal artery is identified. There is no evidence of renal artery ostial orsegmental stenosis. The superior mesenteric artery and proximal branchesare unremarkable. Normal renal veins in the standard anatomic location arevisualized. Chest: The lungs are free of focal consolidations. Bibasilar dependentatelectasis is present. No suspicious pulmonary nodules are visible. Thereis no pleural effusion or pneumothorax. The great vessels are normal in course and caliber. The heart size isnormal. There is no pericardial effusion. There is no supraclavicular,axillary, mediastinal or hilar lymphadenopathy. Abdomen and Pelvis: The liver is diffusely hypoattenuating consistent with steatosis.Otherwise, within the limitations of an arterial phase examination, theliver, spleen, pancreas, and adrenal glands appear normal. The gallbladderis normal without evidence of gallstones or gallbladder wall thickening. There is no intrahepatic or extrahepaticbiliary ductal dilatation. The kidneys enhance symmetrically bilaterally.There is no hydronephrosis or hydroureter. The stomach is normal. The small bowel and large bowel are normal incourse and caliber without evidence of bowel wall thickening or bowelobstruction. The appendix is normal. There is no evidence ofretroperitoneal lymphadenopathy. The abdominal aorta is normal in course and caliber. The remaining enhanced abdominalvascular structures are normal. No free intraperitoneal air is seen. The bladder is moderately distended with fluid. The uterus is surgicallyabsent. There is no free fluid in the pelvis. Bone windows demonstrate no suspicious lytic or blastic lesions. IMPRESSION IMPRESSION: 1. No evidence of acute intramural hematoma, penetrating aortic ulcer,dissection, or aneurysm in the aorta 2. Hepatic steatosis 3. No evidence of acute process in the chest, abdomen, or pelvis. Report Dictated by Ba Huff M.D. (Costume Shop Manager) Dr. EMILIA Perdomo M.D. have personally reviewed and interpreted thisexamination/study. This report was electronically signed by EMILIA MEREDITH M.D. on 12/04/20133:49 PM . Abdias Milan MD CT ORDERABLES * XR CHEST 1VW PORTABLE (12/04/2013 11:43 AM CDT) Anatomical Region Laterality Modality Chest Other Impressions 12/04/2013 12:00 PM CDT Impression: Low lung volumes. Minimal bibasilar atelectasis. Otherwise no acute pulmonary process. Report dictated by Jonha Love M.D., MPH (resident). Dr. EMILIA Perdomo M.D. have personally reviewed and interpreted this examination/study. This report was electronically signed by EMILIA MEREDITH M.D. on 12/04/2013 12:00 PM . Narrative 12/04/2013 12:00 PM CDT Exam: PX CHEST 1 VW Exam Date: 12/04/2013 11:43 AM History: Chest pain, ? Dissection. Comparison: None. Findings: The lung volumes are low; there is associated minimal bibasilar atelectasis. No acute pathologic opacity, pleural effusion, or pneumothorax is present. The cardiomediastinal silhouette is normal for the technique. The visible bony thorax is intact. Procedure Note Emilia Meredith MD - 07/12/2017 Exam: PX CHEST 1 VW Exam Date: 12/04/2013 11:43 AM History: Chest pain, ? Dissection. Comparison: None. Findings: The lung volumes are low; there is associated minimal bibasilaratelectasis. No acute pathologic opacity, pleural effusion, orpneumothorax is present. The cardiomediastinal silhouette is normal forthe technique. The visible bony thorax is intact. IMPRESSION Impression: Low lung volumes. Minimal bibasilar atelectasis. Otherwise no acutepulmonary process. Report dictated by Jonah Love M.D., MPH (resident). I, Dr. EMILIA MEREDITH M.D. have personally reviewed and interpreted thisexamination/study. This report was electronically signed by EMILIA MEREDITH M.D. on 12/04/201312:00 PM . Abdias Milan MD DIAGNOSTIC IMAGING O RDERABLES * TYPE + SCREEN PANEL (12/04/2013 11:42 AM CDT) Typem AB POS [facility] Antibody Screen NEG [facility] Blood specimen (specimen) BLOOD SPECIMEN / Unknown 12/04/2013 11:42 AM CDT 12/04/2013 11:50 AM CDT Abdias Milan MD LAB - BLOOD BANK ORD ERABLES [facility] [address] * PTT SLU (12/04/2013 11:40 AM CDT) APTT 25.2 23.0 - 38.4 Seconds [facility] Comment:Suggested therapeuti c range for full dose I.V. heparin therapy for venous thromboembolism is 66.0-91.0 seconds. Blood specimen (specimen) BLOOD SPECIMEN / Unknown 12/04/2013 11:40 AM CDT 12/04/2013 11:49 AM CDT Narrative [facility] - 12/04/2013 12:23 PM CDT Is patient on Heparin, Argatroban or Dabigatran?->N Abdias Milan MD LAB - COAGULATION OR DERABLES Performing Organization Address [facility]/State/ZIP Co de Phone Number [address] [phone] * PT-INR [facility] (12/04/2013 11:40 AM CDT) PT 12.7 12.1 - 14.8 Seconds [facility] INR 0.9 See Comment [facility] Comment: Suggested therapeutic range for low-intensity coumadin therapy for venous thromboembolism prophylaxis is an INR of 2.0-3.0. For high risk patients (Mitral Valve Prosthesis, Atrial Fibrillation, history of TIA/stroke), suggested prophylactic therapeutic range is an INR of 2.5-3.5. Blood specimen (specimen) BLOOD SPECIMEN / Unknown 12/04/2013 11:40 AM CDT 12/04/2013 11:49 AM CDT Narrative [facility] - 12/04/2013 12:23 PM CDT Is patient on Heparin, Argatroban or Dabigatran?->N Abdias Milan MD LAB - COAGULATION OR DERABLES [address] [phone] * (ABNORMAL) BLOOD GASES PETERSON (12/04/2013 11:40 AM CDT) pH Mixed Venous 7.41(H) 7.30 - 7.40 [facility] pCO2 Mixed Venous 40 40 - 46 mmHg [facility] pO2 Mixed Venous 58(H) 35 - 42 mmHg [facility] HCO3 Mixed Venous 24.8 22.0 - 26.0 mmol/L [facility] TCO2 Mixed Venous 26.0 25.0 - 29.0 mmol/L [facility] Base Excess Venous 0.6 -2.0 - 2.0 mmol/L [facility] Hemoglobin Mixed Venous 13.3 12.0 - 15.5 g/dL [facility] Oxyhemoglobin Mixed Venous 90.3(H) 66.0 - 77.0 % [facility] Carboxyhemoglobin Venous 1.6 0.0 - 3.0 % [facility] Methemoglobin 1.3 0.0 - 2.0 % [facility] Blood specimen (specimen) BLOOD SPECIMEN / Unknown 12/04/2013 11:40 AM CDT 12/04/2013 11:49 AM CDT Narrative [facility] - 12/04/2013 11:59 AM CDT FIO2->21 Abdias Milan MD LAB - BLOOD GASES OR DERABLES [address] [phone] * PHOSPHORUS BLOOD (12/04/2013 11:40 AM CDT) Phosphorus 3.5 2.3 - 4.7 mg/dL [facility] Blood specimen (specimen) BLOOD SPECIMEN / Unknown 12/04/2013 11:40 AM CDT 12/04/2013 11:50 AM CDT Abdias Milan MD LAB - CHEMISTRY ORDE RABLES [address] [phone] * (ABNORMAL) HEPATIC FUNCTION PANEL (12/04/2013 11:40 AM CDT) Bilirubin Conjugated 0.2 0.0 - 0.5 mg/dL [facility] Bilirubin Unconjugated 0.3 Unconjugated Bilirubin is a calculated value: Reference ranges have not been established. mg/dL [facility] Albumin/Globulin Ratio 0.9(L) 1.1 - 2.3 [facility] Protein Total 7.6 6.0 - 8.3 g/dL [facility] Albumin 3.7 3.4 - 5.0 g/dL [facility] Bilirubin Total 0.5 0.2 - 1.2 mg/dL [facility] Alkaline Phosphatase 116 40 - 150 Units/L [facility] ALT 44 0 - 55 Units/L [facility] AST 33 5 - 34 Units/L [facility] Blood specimen (specimen) BLOOD SPECIMEN / Unknown 12/04/2013 11:40 AM CDT 12/04/2013 11:50 AM CDT Abdias Milan MD LAB - CHEMISTRY ADRIANA SPANGLER Performing Organization Address City/[facility]/ZIP Co de Phone Number [address] [phone] * MAGNESIUM BLOOD (12/04/2013 11:40 AM CDT) Magnesium 1.9 1.6 - 2.6 mg/dL [facility] Blood specimen (specimen) BLOOD SPECIMEN / Unknown 12/04/2013 11:40 AM CDT 12/04/2013 11:50 AM CDT Abdias Milan MD LAB - CHEMISTRY ADRIANA SPANGLER Performing Organization Address [facility] Co de Phone Number [address] [phone] * LIPASE BLOOD (12/04/2013 11:40 AM CDT) Lipase 20 8 - 78 Units/L [facility] Blood specimen (specimen) BLOOD SPECIMEN / Unknown 12/04/2013 11:40 AM CDT 12/04/2013 11:50 AM CDT Abdias Milan MD LAB - CHEMISTRY ADRIANA SPANGLER Performing Organization Address City/[facility]/ZIP Co de Phone Number [address] [phone] * (ABNORMAL) LACTIC ACID BLOOD (12/04/2013 11:40 AM CDT) Lactic Acid-Stat 2.4(H) 0.5 - 2.2 mmol/L [facility] Blood specimen (specimen) BLOOD SPECIMEN / Unknown 12/04/2013 11:40 AM CDT 12/04/2013 11:49 AM CDT Abdias Milan MD LAB - CHEMISTRY ADRIANA SPANGLER [facility] Organization Address City/State/ZIP Co de Phone Number [address] [phone] Care Teams Ancillary Services Manager Relationship Specialty Start Date End Date Daron Sultana MD [address] [place] [address] PCP - General Family Medicine 08/28/14
--- OUTSIDE RECORDS SUMMARY | 2024-06-08 19:03 | XMS_ITS | Clinical Summary ---
Author Organization Address [address] [place] [address] Care Team Providers Care Swahili Teacher Name Role Phone Unavailable Primary Care Provider Unavailabl e Social History Tobacco Use Types Packs/Day Years Used Date Smoking Tobacco: Never Assessed Comments Unknown Sex and Gender Information Value Date Recorded Sex Assigned at Not on file Legal Sex Female 11:54 AM [employer] Gender Identity Not on file Sexual Orientation Not on file Plan of Treatment Health Maintenance Due Date Last Done Comments DEXA Bone Density 1955 Hepatitis C Virus (HCV) Screening 1955 TdaP Immunization 1955 Colonoscopy 2001 Colorectal Cancer Screening 2001 Cologuard 2006 Immunochemical Fecal Occult Blood 2006 Mammogram 2006 Pneumococcal Immunization (5 0+ years) (1 of 1 - PCV) 2006 Zoster Immunization (1 of 2) 2006 Influenza Immunization (#1) 12/14/202301/13, 01/25/2018, 01/02/2016 SARS-COV-2 Immunization ( - 2023-25 season) 2023 Respiratory Syncytial Virus (RSV) Immunization (Adult) (1 - 1-dose 75+ series) 11/17/2031 Hepatitis B Immunization Aged Out No longer eligible based on patient's age to complete this topic Meningococcal Immunization (ACWY) Aged Out No longer eligible b ased on patient's age to complete this topic Rotavirus Immunization Aged Out No lo nger eligible based on patient's age to complete this topic
--- OUTSIDE RECORDS SUMMARY | 2024-06-08 19:03 | XMS_ITS | Clinical Summary ---
Author Organization [facility] Address [address] [facility] [place] [address] Care Team Providers Care Spudder Name Role Phone Daron Sultana MD Primary Care Provider + [phone] Allergies No known active allergies Medications diazePAM (VALIUM) 5 mg tabletIndicatio ns:Muscle Spasm Take 1 tablet (5 mg total) by mouth every 6 (six) hours as needed for anxiety 5 tablet 07/06/2022 Active amoxicillin-cla vulanate (AUGMENTIN) 875-125 mg per tabletIndicatio ns:Upper Respiratory/AC NT Infection Take 1 tablet by mouth 2 (two) times a day for 10 days 20 tablet 05/05/2024 05/15/19 25 Active Problems No known active problems Encounters Date Type Department Care Team Description 05/05/2024 7:07 AM AGITATOR OPERATOR - 05/05/2024 10:30 AM [facility] Emergency [facility] Emergency Department [address] [place] [address] Opal Stringer MD Lip swelling (Primary Dx); Cellulitis of lip Discharge Disposition: Discharge to home or self care from Last 3 Months Medical History Medical History Date Comments Arthritis Diabetes mellitus (HCC) Hypertension Social History Tobacco Use Types Packs/Day Years [...] on file Legal Sex Female 9:03 PM AGITATOR OPERATOR Gender Identity Not on file Sexual Orientation Not on file Obstetrics History Last Filed Vital Signs Vital Sign Reading Time Taken Comments Blood Pressure 123/70 05/05/2024 8:00 AM AGITATOR OPERATOR Pulse 98 05/05/2024 8:00 AM AGITATOR OPERATOR Temperature 36.9 C (98.4 F) 05/05/2024 5:39 AM AGITATOR OPERATOR Respiratory Rate 16 05/05/2024 8:00 AM AGITATOR OPERATOR Oxygen Saturation 95% 05/05/2024 8:00 AM AGITATOR OPERATOR Inhaled Oxygen Concentration - - Weight 75.8 kg (167 lb) 05/05/2024 4:36 AM AGITATOR OPERATOR Height 170.2 cm (5' 7 ) 05/05/2024 4:36 AM AGITATOR OPERATOR Body Mass Index 26.16 05/05/2024 4:36 AM AGITATOR OPERATOR Plan of Treatment Health Maintenance Due Date Last Done Comments Colon Cancer Screening-Colonoscopy 1955 Depression Screening 1956 Fall Risk Assessment 1955 Hepatitis C Screening 1955 Osteoporosis Screening-Bone Density Scan 1955 DTaP/Tdap/Td Vaccine (1 - Tdap) 11/17/1967 Hepatitis B Screening 1974 Pneumococcal vaccine 65+ (1 of 1 - PCV) 2006 Zoster Vaccine (1 of 2) 2006 Well Visit 65+ 2021 Influenza Vaccine (#1) 2023 , 01/25/2018, 01/02/2016 Breast Cancer Screening-Mammogram 01/11/2025 01/12/2024, 12/27/2022, 12/29/2020, Additional history exists Procedures Procedure Name Priority Date/Time Associated Diagnosis Comments ECG 12-LEAD STAT 05/05/2024 3:[address] HEAD WO CONTRAST ED 05/05/2024 8 :19 AM AGITATOR OPERATOR EGFR STAT 05/05/2024 8:08 AM AGITATOR OPERATOR DIFFERENTIAL AUTO STAT 05/05/2024 8:0 8 AM AGITATOR OPERATOR CREATINE KINASE (CK), TOTAL STAT 05/05/2024 8:08 AM AGITATOR OPERATOR TROPONIN I HIGH-SENSITIVITY SERIES (BASELINE, 2HR, 4HR, 6HR) STAT 05/05/2024 8:08 AM AGITATOR OPERATOR COMPREHENSIVE METABOLIC PANEL STAT 05/05/2024 8:08 AM AGITATOR OPERATOR CBC WITH AUTO DIFFERENTIAL STAT 05/05/2024 8:08 AM AGITATOR OPERATOR POCT GLUCOSE DEVICE Routine 05/05/2024 4 :38 AM AGITATOR OPERATOR SCREENING MAMMOGRAM BILATERAL W GOYO Schedule Routine, Read Routine (OP Routine) 01/12/2024 11:24 AM CDT Screening mammogram, encounter for from Last 3 Months or Most Recently Relevant to Health Maintenance Results * ECG 12-LEAD (05/05/2024 3:25 PM AGITATOR OPERATOR) Narrative MUSE BJ - 05/05/2024 3:25 PM AGITATOR OPERATOR Opal Stringer MD 05/05/2024 3:26 PM [...] Jignesh Perkins MD ECG ORDERABLES Final Result [facility] * CT Head WO Contrast (05/05/2024 8:19 AM AGITATOR OPERATOR) Anatomical Region Laterality Modality Head and Neck N/A Computed Tomogra phy 05/05/2024 8:50 AM AGITATOR OPERATOR Impressions 05/05/2024 8:50 AM AGITATOR OPERATOR No acute intracranial process. Electronically signed by: Arlen Li MD Narrative 05/05/2024 8:50 AM AGITATOR OPERATOR EXAMINATION: CT head without contrast HISTORY: [...] by: Arlen Li MD Jignesh Perkins MD IMG CT PROCEDURES Final Resul t * Troponin I high-sensitivity series (baseline, 2hr, 4hr, 6hr) (05/05/2024 8:08 AM AGITATOR OPERATOR) Pathologist [facility] Trop I hs <4 <=17 ng/L Comment: Interpretive Data For further hscTnI resources including the diagnostic algorithm and an aid in interpretation, copy and paste this link: [email or web address].org/[email or web address] Current Interpretive Data last revised 2019. Blood 05/05/2024 8:08 AM AGITATOR OPERATOR 05/05/2024 8:18 AM AGITATOR OPERATOR Jignesh Perkins MD LAB BLOOD ORDERABLES Final Re sult [facility] Department [place] [address] * eGFR (05/05/2024 8:08 AM AGITATOR OPERATOR) Pathologist [facility] eGFR >90 >=60 mL/min/1. 73 m2 Comment: [...] of Race in Diagnosing Kidney Disease, JASN 202). The CKD-EPI equation should not be used for patients with unstable renal function and has not been validated in children and those over 70. Current interpretive data was last reviewed 2021. Blood 05/05/2024 8:08 AM AGITATOR OPERATOR 05/05/2024 8:18 AM AGITATOR OPERATOR us Jignesh Perkins MD LAB BLOOD ORDERABLES Final Re sult [facility] Department [place] [address] * (ABNORMAL) Differential, auto (05/05/2024 8:08 AM AGITATOR OPERATOR) Neutrophil abs 12.4(H) 1.5 - 6.5 K/cumm Imm gran abs 0.1 0.0 - 0.1 K/cumm [facility] Lymphocyte abs 1.8 0.8 - 3.3 K/cumm [facility] Monocyte abs 1.0(H) 0.2 - 0.8 K/cumm [facility] Eosinophil abs 0.0 0.0 - 0.5 K/cumm [facility] Basophil abs 0.0 0.0 - 0.1 K/cumm [facility] Neutrophil pct 80.7 % [facility] Comment: Interpretive Data Percent cell count reference ranges are not reported, since discordance with absolute values may lead to misinterpretation of CBC data. Current Interpretive Data was last revised on 2017. Imm gran pct 0.4 % [facility] Comment: Interpretive Data Percent cell count reference ranges are not reported, since discordance with absolute values may lead to misinterpretation of CBC data. Current Interpretive Data was last revised on 2017. Lymphocyte pct 12.0 % [facility] Comment: Interpretive Data Percent cell count reference ranges are not reported, since discordance with absolute values may lead to misinterpretation of CBC data. Current Interpretive Data was last revised on 2017. Monocyte pct 6.3 % [facility] Comment: Interpretive Data Percent cell count reference ranges are not reported, since discordance with absolute values may lead to misinterpretation of CBC data. Current Interpretive Data was last revised on 2017. Eosinophil pct 0.3 % [facility] Comment: Interpretive Data Percent cell count reference ranges are not reported, since discordance with absolute values may lead to misinterpretation of CBC data. Current Interpretive Data was last revised on 2017. Basophil pct 0.3 % [facility] Comment: Interpretive Data Percent cell count reference ranges are not reported, since discordance with absolute values may lead to misinterpretation of CBC data. Current Interpretive Data was last revised on 2017. Blood 05/05/2024 8:08 AM AGITATOR OPERATOR 05/05/2024 8:18 AM AGITATOR OPERATOR Jignesh Perkins MD LAB BLOOD ORDERABLES Final Re sult [facility] Department [place] [address] * (ABNORMAL) CBC with auto differential (05/05/2024 8:08 AM AGITATOR OPERATOR) WBC 15.4(H) 3.8 - 9.9 K/cumm Hgb 14.3 11.9 - 15.5 g/dL [facility] Hct 44.5 35.6 - 45.5 % [facility] Plt 355 150 - 400 K/cumm [facility] MPV 9.5 9.1 - 12.3 fL [facility] RBC 5.35(H) 3.90 - 5.20 M/cumm [facility] MCV 83.2 81.3 - 96.4 fL [facility] MCH 26.7(L) 27.1 - 33.3 pg [facility] MCHC 32.1(L) 32.3 - 35.7 g/dL [facility] RDW CV 14.1 11.1 - 14.9 % [facility] RDW SD 42.6 35.7 - 48.1 fL [facility] NRBC abs 0.00 0.00 - 0.01 K/cumm [facility] Blood 05/05/2024 8:08 AM AGITATOR OPERATOR 05/05/2024 8:18 AM AGITATOR OPERATOR Jignesh Perkins MD LAB BLOOD ORDERABLES Final Re sult [facility] Department [place] [address] * Creatine kinase (CK), total (05/05/2024 8:08 AM AGITATOR OPERATOR) Pathologist [facility] CK 49 30 - 200 Units/L Blood 05/05/2024 8:08 AM AGITATOR OPERATOR 05/05/2024 8:18 AM AGITATOR OPERATOR Jignesh Perkins MD LAB BLOOD ORDERABLES Final Re sult Performing Organization Address [facility] Co de Phone Number [facility] Department [place] [address] * Comprehensive metabolic panel (05/05/2024 8:08 AM AGITATOR OPERATOR) [facility] Sodium 140 135 - 145 mmol/L Potassium, pl 4.2 3.3 - 4.9 mmol/L [facility] Chloride 104 97 - 110 mmol/L [facility] CO2 27 22 - 32 mmol/L [facility] Anion gap 9 2 - 15 mmol/L [facility] BUN 13 6 - 25 mg/dL [facility] Creatinine 0.71 0.60 - 1.10 mg/dL [facility] Glucose 149 70 - 199 mg/dL [facility] Comment: Interpretive Data Fasting glucose >/= 126 [...] classification and Diagnosis of Diabetes Diabetes Care 202; 46: S19-S40. Current interpretive data was last revised 2022. Calcium 9.9 8.5 - 10.3 mg/dL [facility] Bilirubin, total 0.5 0.1 - 1.2 mg/dL [facility] Protein, pl 8.0 6.5 - 8.5 g/dL [facility] Albumin 4.4 3.5 - 5.0 g/dL [facility] Alk phos 108 40 - 130 Units/L [facility] ALT 15 7 - 45 Units/L [facility] AST 21 10 - 45 Units/L [facility] Blood 05/05/2024 8:08 AM AGITATOR OPERATOR 05/05/2024 8:18 AM AGITATOR OPERATOR us Jignesh Perkins MD LAB BLOOD ORDERABLES Final Re sult [facility] Department [place] [address] * POCT glucose (05/05/2024 4:38 AM AGITATOR OPERATOR) [facility] Signature Glucose, POC 149 70 - 199 mg/dL Blood 05/05/2024 4:38 AM AGITATOR OPERATOR 05/05/2024 4:38 AM AGITATOR OPERATOR us Notinfile Unknown LAB POCT ORDERABLES - DEVICE F inal Result Performing Organization Address [facility] Co de Phone Number [facility] Department [place] [address] * Screening Mammogram Bilateral W Goyo (01/12/2024 11:24 AM CDT) Anatomical Region Laterality Modality Breast Bilateral Mammography Narrative 01/13/2024 1:05 PM CDT Mammogram Technique: Bilateral Digital Breast Tomosynthesis, Bilateral C-view 2D Screening mammogram. Views obtained: bilateral craniocaudal and bilateral mediolateral oblique. Computer Aided Detection was performed. Mammogram Findings: The present examination has been compared to prior imaging studies performed at [facility] on 12/29/2020 and 12/27/2022, and at [facility] at [facility] on 11/24/2018. There are scattered areas of [...] compared to prior imaging studies performed at [facility] on 12/29/2020 and 12/27/2022, and at [facility] at [facility] on 11/24/2018. There are scattered areas of fibroglandular density. There is no suspicious abnormality in either breast. Impression: There is no mammographic evidence of malignancy. Annual screening mammography is recommended. OVERALL FINAL ASSESSMENT: BI-RADS CATEGORY 1: Negative. us Self Screening Mammogram IMG MAMMO PROCEDURES Fi nal Result from Last 3 Months or Most Recently Relevant to Health Maintenance Insurance [facility] HMO/POS [facility] HMO/PPO Address: [facility] [id number] [place] [phone] [facility] CHOICE PLUS MEDICARE SOLUTIONS [facility] [place] [address] MEDICARE SOLUTIONS Care Teams Spudder Relationship Specialty Start Date End Date Daron Sultana MD PCP - General 07/28/17
== END 2024-06-08 17:43 | disposition home or self-care (01) ==
PROVIDERS: PCP Family Medicine; Visit Provider Internal Medicine Hematology & Oncology
DX: C18.9 Malignant neoplasm of colon, unspecified (principal)
CPT/HCPCS: 36415; 80053; 82378; 85025

== ENCOUNTER 2024-09-07 10:21 | Outpatient (CLI) | payer OTHER, MEDICARE, SELFPAY ==
--- NOTE | ~2024-09-07 | CT_ITS ---
CT of the Abdomen and Pelvis: Indication: Colon cancer Technique: 2.5 mm axial scans were obtained through the abdomen and pelvis following intravenous adm inistration of 100 cc of Omnipaque 350. Dose reduction technique was used on this scan by utilizing a utomated exposure control and iterative reconstruction technique. The dose-length product (DLP) was 5 80.24 mGy-cm. COMPARISON: 02/23/2024 Findings: Scans through the lung bases are unremarkable. The liver, spleen, pancreas, gallbladder, adrenals and kidneys are within normal limits. No evidence of aortic aneurysm. No lymphadenopathy. No bowel obstruction or bowel wall thickening. Evidence of prior partial right colectomy. Images through the pelvis were performed. Urinary bladder unremarkable. No pelvic mass seen. No ascit es. Impression: No evidence for active malignancy or metastatic disease. Stable postoperative change. Reviewed, dictated and finalized at [facility]. Impression: No evidence for active malignancy or metastatic disease. Stable postoperative c hange.
--- OUTSIDE RECORDS SUMMARY | 2024-09-07 10:30 | XMS_ITS | Referral Summary ---
Author Organization [facility] Address [address] [facility] [place] [address] Care Team Providers Care Box Blank Machine Operator Name Role Phone Daron Sultana MD Primary Care Provider + [phone] Allergies No known active allergies Medications diazePAM (VALIUM) 5 mg tabletIndicatio ns:Muscle Spasm Take 1 tablet (5 mg total) by mouth every 6 (six) hours as needed for anxiety 5 tablet 07/06/2022 Active Active Problems No known active problems Social [...] on file Legal Sex Female 9:03 PM DIRECTOR IMMUNOLOGY Gender Identity Not on file Sexual Orientation Not on file Last Filed Vital Signs Vital Sign Reading Time Taken Comments Blood Pressure 123/70 05/05/2024 8:00 AM DIRECTOR IMMUNOLOGY Pulse 98 05/05/2024 8:00 AM DIRECTOR IMMUNOLOGY Temperature 36.9 C (98.4 F) 05/05/2024 5:39 AM DIRECTOR IMMUNOLOGY Respiratory Rate 16 05/05/2024 8:00 AM DIRECTOR IMMUNOLOGY Oxygen Saturation 95% 05/05/2024 8:00 AM DIRECTOR IMMUNOLOGY Inhaled Oxygen Concentration - - Weight 75.8 kg (167 lb) 05/05/2024 4:36 AM DIRECTOR IMMUNOLOGY Height 170.2 cm (5' 7 ) 05/05/2024 4:36 AM DIRECTOR IMMUNOLOGY Body Mass Index 26.16 05/05/2024 4:36 AM DIRECTOR IMMUNOLOGY Plan of Treatment Not on file Procedures Procedure Name Priority Date/Time Associated Diagnosis Comments SCREENING MAMMOGRAM BILATERAL W GOYO Schedule Routine, Read Routine (OP Routine) 01/12/2024 11:24 AM CDT Screening mammogram, encounter for from Last 3 Months or Most Recently Relevant to Health Maintenance Results * Screening Mammogram Bilateral W Goyo (01/12/2024 11:24 AM CDT) Anatomical Region Laterality Modality Breast Bilateral Mammography Narrative 01/13/2024 1:05 PM CDT Mammogram Technique: Bilateral Digital Breast Tomosynthesis, Bilateral C-view 2D Screening mammogram. Views obtained: bilateral craniocaudal and bilateral mediolateral oblique. Computer Aided Detection was performed. Mammogram Findings: The present examination has been compared to prior imaging studies performed at [facility] on 12/29/2020 and 12/27/2022, and at [facility] on 11/24/2018. There are scattered areas of [...] compared to prior imaging studies performed at [facility] on 12/29/2020 and 12/27/2022, and at [facility] on 11/24/2018. There are scattered areas of fibroglandular density. There is no suspicious abnormality in either breast. Impression: There is no mammographic evidence of malignancy. Annual screening mammography is recommended. OVERALL FINAL ASSESSMENT: BI-RADS CATEGORY 1: Negative. us Self Screening Mammogram IMG MAMMO PROCEDURES Fi nal Result from Last 3 Months or Most Recently Relevant to Health Maintenance [facility] ANTH ACCESS [facility] CHOICE [facility]US [facility] H[facility]PPO Address: [address] [address] [place] [address] [facility] MEDICARE ADVANTAGE [facility] HMO/PPO Address: [facility] [address] [place] [address] [facility] HMO/PPO Address: [address] [address] [place] [address] [facility] MEDICARE ADVANTAGE [facility] MEDICARE Address: [address] [address] [place] [address] Care Teams Box Blank Machine Operator Relationship Specialty Start Date End Date Daorn Sultana MD PCP - General 07/28/17
--- OUTSIDE RECORDS SUMMARY | 2024-09-07 10:30 | XMS_ITS | Clinical Summary ---
Author Organization [facility] Address [address] [facility] [place] [address] Care Team Providers Care Bid Analyst Name Role Phone Daron Sultana MD Primary Care Provider [phone] Source Comments [facility],non-owned Affiliates and Associated Physician Practices is amultiple site organization consisting of ambulatory clinics and hospital sitesin [place], [place], [place] and [place]. This disclosure is being madepursuant to the Care Everywhere program and may not contain all information available regarding this patient. Last updated 18.[employer] Allergies No known active allergies Medications * Be aware that medications may not be up to date on this document. Alwaysverify current medications with the patient. azithromycin (ZITHROMAX) 250 MG tablet Take 2 tablets(500 mg) by mouth today, then one tablet(250 mg) by mouth for the next four days 6 Tab 0 5 Active albuterol HFA (PROVENTIL;VENT HALEY;PROAIR) 108 (90 BASE) MCG/ACT inhaler Inhale 2 Puffs by mouth every 4 hours as needed for Shortness of Breath or Wheezing. 1 Inhaler 1 5 Active Social History Tobacco Use Types Packs/Day Years Used Date Smoking Tobacco: Never Assessed Comments Unknown Sex and Gender Information Value Date Recorded Sex Assigned at Not on file Legal Sex Female 6:17 AM CHEF SAUCIER Gender Identity Not on file Sexual Orientation [...] VACCINE (1 of 2) 2006 COVID-19 VACCINE ( - 2023-2 5 season) 2023 DEPRESSION SCREENING 04/14/2024 MEDICARE AWV CALENDAR YEAR 2024 INFLUENZA VACCINE (Season Ended) 2024 Respiratory Syncytial Virus (RSV) Vaccine Pt: [...] to complete this topic MENINGOCOCCAL (Group B) VACC INE SHARED DECISION-MAKING Aged Out No longer eligibl e based on patient's age to complete this topic MENINGOCOCCAL GROUPS A/C/Y/W VACCINE Aged Out No longer eligible b ased on patient's age to complete this topic Insurance [facility] MANAGED MEDICARE ADV * Guarantor: GEOVANNA VIERA Account Type Relation to Patient Date of Phone Billing Address Personal/Family [address] [place] [address] [facility] MANAGED MEDICARE ADV * Guarantor: GEOVANNA VIERA Account Type Relation to Patient Date of Phone Billing Address Personal/Family [address] [place] [address] [facility] MANAGED MEDICARE ADV * Guarantor: GEOVANNA VIERA Account Type Relation to Patient Date of Phone Billing Address Personal/Family [address] [place] [address] [facility] MANAGED MEDICARE ADV * Guarantor: GEOVANNA VIERA Account Type Relation to Patient Date of Phone Billing Address Personal/Family [address] [place] [address] [facility] MANAGED MEDICARE ADV * Guarantor: GEOVANNA VIERA Account Type Relation to Patient Date of Phone Billing Address Personal/Family [address] [place] [address] [facility] MANAGED MEDICARE ADV * Guarantor: GEOVANNA VIERA Account Type Relation to Patient Date of Phone Billing Address Personal/Family [address] [place] [address] [facility] [place] [address] [facility] [place] [address] Care Teams Bid Analyst Relationship Specialty Start Date End Date Daron Sultana MD [address] [place] [address] PCP - General Family Medicine 08/28/14
--- OUTSIDE RECORDS SUMMARY | 2024-09-07 10:30 | XMS_ITS | Clinical Summary ---
Author Organization [facility] Address [address] [place] [address] Care Team Providers Care Desk Representative Name Role Phone Daron Sultana MD Primary Care Provider [phone] Allergies No known active allergies Medications tirzepatide (MOUNJARO SUBCUT) Inject by subcutaneous injection. Active dapagliflozin propanediol (FARXIGA ORAL) Take by mouth. Active lisinopriL (PRINIVIL) 2.5 mg tablet Take 1 Tablet by mouth daily. Active Active Problems No known active problems Encounters Date Type Department Care Team Description 09/01/2024 External Device Data ST[facility] ABSTRACTION Provider, Abstract 08/31/2024 External Device Data [facility] ABSTRACTION Provider, Abstract 06/30/2024 External Device Data [facility] ABSTRACTION Provider, Abstract 06/19/2024 External Device Data [facility] ABSTRACTION Provider, Abstract 06/18/2024 External Device Data [facility] ABSTRACTION Provider, Abstract 06/16/2024 External Device Data [facility] ABSTRACTION Provider, Abstract 06/16/2024 External Device Data ST[facility] ABSTRACTION Provider, Abstract 06/10/2024 Abstract [facility] Oncology and Hematology - Ashok [address] [facility] [address] [place] [address] Thomas Wilkes MD from Last 3 Months Family History Medical [...] Sign Reading Time Taken Comments Blood Pressure 150/84 06/09/2024 3:48 PM DATA SUPPORT SPECIALIST Pulse 73 06/09/2024 3:47 PM DATA SUPPORT SPECIALIST Temperature 35.8 C (96.4 F) 06/09/2024 3:47 PM DATA SUPPORT SPECIALIST Respiratory Rate 15 06/09/2024 3:47 PM DATA SUPPORT SPECIALIST Oxygen Saturation 98% 06/09/2024 3:47 PM DATA SUPPORT SPECIALIST Inhaled Oxygen Concentration - - Weight 74.9 kg (165 lb 3.2 oz) 06/09/2024 3:47 P M DATA SUPPORT SPECIALIST Height 170.2 cm (5' 7 ) 11/18/2023 1:23 PM CDT Body Mass Index 25.87 11/18/2023 1:23 PM CDT Plan of Treatment Upcoming Encounters Date Type Department Care Team (Late st Contact Info) Description 09/15/2024 3:45 PM CDT Office Visit [facility] Oncology and Hematology - [place]ok [address] [facility] [address] [place] [address] Thomas Wilkes MD [address] [facility] [address] [place] [address] Health Maintenance Due Date Last Done Comments Pre-Diabetes and Diabetes Screening 1955 DTAP/TDAP/TD VACCINES (1 - Tdap) 11/17/1975 PNEUMOCOCCAL VACCINE 50+ YEA RS (1 of 1 - PCV) 2006 ZOSTER VACCINE (1 of 2) 2006 RSV VACCINE (60+ or ) (1 - Risk 60-74 years 1-dose series) 2016 OSTEOPOROSIS SCREENING 2021 INFLUENZA VACCINE (#1) 2023 COVID-19 Vaccine (2 - 2023-2 5 season) 2023 03/14/2021 BREAST CANCER SCREENING 01/11/2025 01/12/20 24, 01/12/2024, 12/27/2022, Additional history exists Insurance [facility] CHOICE [id number] [address] Care Teams Desk Representative Relationship Specialty Start Date End Date Daron Sultana MD [address] [place] [address] PCP - General Family Practice 03/03/24
--- OUTSIDE RECORDS SUMMARY | 2024-09-07 10:30 | XMS_ITS | Clinical Summary ---
Author Organization [facility] Address [address] [place] [address] Care Team Providers Care Student Nurse Name Role Phone Unavailable Primary Care Provider Unavailabl e Social History Tobacco Use Types Packs/Day Years Used Date Smoking Tobacco: Never Assessed Comments Unknown Sex and Gender Information Value Date Recorded Sex Assigned at Not on file Legal Sex Female 11:54 AM PROJECT ECONOMIST Gender Identity Not on file Sexual Orientation [...]
--- OUTSIDE RECORDS SUMMARY | 2024-09-07 10:30 | XMS_ITS | Clinical Summary ---
Author Organization [facility] Address [address] [facility] [place] [address] Care Team Providers Care Liquor Rectifier Name Role Phone Daron Sultana MD Primary Care Provider [phone] Allergies No known active allergies Medications diazePAM (VALIUM) 5 mg tabletIndicatio ns:Muscle Spasm Take 1 tablet (5 mg total) by mouth every 6 (six) hours as needed for anxiety 5 tablet 07/06/2022 Active Active Problems No known active problems Medical History Medical History Date Comments Arthritis [...] on file Legal Sex Female 9:03 PM RETIREMENT ACTUARY Gender Identity Not on file Sexual Orientation Not on file Obstetrics History Last Filed Vital Signs Vital Sign Reading Time Taken Comments Blood Pressure 123/70 05/05/2024 8:00 AM RETIREMENT ACTUARY Pulse 98 05/05/2024 8:00 AM RETIREMENT ACTUARY Temperature 36.9 C (98.4 F) 05/05/2024 5:39 AM RETIREMENT ACTUARY Respiratory Rate 16 05/05/2024 8:00 AM RETIREMENT ACTUARY Oxygen Saturation 95% 05/05/2024 8:00 AM RETIREMENT ACTUARY Inhaled Oxygen Concentration - - Weight 75.8 kg (167 lb) 05/05/2024 4:36 AM RETIREMENT ACTUARY Height 170.2 cm (5' 7 ) 05/05/2024 4:36 AM RETIREMENT ACTUARY Body Mass Index 26.16 05/05/2024 4:36 AM RETIREMENT ACTUARY Plan of Treatment Health Maintenance Due Date Last Done Comments Colon Cancer Screening-Colonoscopy 1955 Depression Screening 1955 Fall Risk Assessment 1955 Hepatitis C Screening 1955 Osteoporosis Screening-Bone Density Scan 1956 DTaP/Tdap/Td Vaccine (1 - Tdap) 11/17/1967 Hepatitis B Screening 1974 Pneumococcal vaccine 65+ (1 of 1 - PCV) 2006 Zoster Vaccine (1 of 2) 2006 Well Visit 65+ 2021 Influenza Vaccine (Season Ended) 2024 02/02/2020, 01/25/2018, 01/02/2016 Breast Cancer Screening-Mammogram 01/11/2025 01/12/2024, [...] compared to prior imaging studies performed at [facility] on 12/29/2020 and 12/27/2022, and at [facility] on 11/24/2018. There are scattered areas [...] compared to prior imaging studies performed at [facility] on 12/29/2020 and 12/27/2022, and at [facility] on 11/24/2018. There are scattered areas of fibroglandular density. There is no suspicious abnormality in either breast. Impression: There is no mammographic evidence of malignancy. Annual screening mammography is recommended. OVERALL FINAL ASSESSMENT: BI-RADS CATEGORY 1: Negative. us Self Screening Mammogram IMG MAMMO PROCEDURES Fi nal Result from Last 3 Months or Most Recently Relevant to Health Maintenance Insurance [facility] ACC[facility] CHOICE PLUS [facility] MEDICARE ADVANTAGE [facility] [place] [address] [address] [facility] MEDICARE ADVANTAGE Care Teams Liquor Rectifier Relationship Specialty Start Date End Date Daron Sultana MD PCP - General 07/28/17
[2024-09-07 11:01] LABS: Estimated Glomerular Filt Rate > 60
[2024-09-07 12:06] LABS: Basophils Percent Auto 0.6 % (0.2-1.2); Eosinophils Absolute Auto 0.1 K/mm3 (0-0.3); Eosinophils Percent Auto 2.2 % (0-4.4); Hematocrit 42.2 % (37.0-47.0); Hemoglobin 13.4 g/dL (12.0-15.0); Immature Granulocyte Absolute 0.01 K/mm3 (0.00-0.031); Immature Granulocyte Percent A 0.2 % (0-0.5); Lymphocytes Absolute Auto 1.87 K/mm3 (0.9-3.2); Lymphocytes Percent Auto 28.8 % (18.3-44.2); Mean Corpuscular HGB Conc 31.8 g/dl (32-36); Mean Corpuscular Hemoglobin 27.1 pg (26-34); Mean Corpuscular Volume 85.3 fl (80-100); Mean Platelet Volume 9.7 fl (7.4-10.4); Monocytes Absolute Auto 0.5 K/mm3 (0.1-0.6); Monocytes Percent Auto 8.3 % (2.6-8.5); Neutrophils Absolute Auto 3.9 K/mm3 (1.3-6.7); Neutrophils Percent Auto 59.9 % (45.5-73.1); Platelet Count Result 298 k/mm3 (150-375); Red Blood Count 4.95 M/mm3 (4.2-5.4); Red Cell Distribution Width 14.2 % (11.5-14.5); White Blood Count 6.5 K/mm3 (4.5-10.0)
[2024-09-07 12:14] LABS: Alanine Aminotransferase 16 U/L (6-35); Albumin Level 4.3 g/dL (3.5-5.1); Alkaline Phosphatase 103 U/L (38-126); Anion Gap 8 mmol/L (4-12); Aspartate Amino Transferase 27 U/L (14-36); Bilirubin,Total 0.4 mg/dL (0.2-1.3); Blood Urea Nitrogen 16 mg/dL (7-17); Calcium 9.1 mg/dL (8.4-10.2); Carbon Dioxide 28 mmol/L (22-30); Chloride 101 mmol/L (98-107); Estimated Glomerular Filt Rate > 60; Glucose 83 mg/dL (65-110); Potassium 4.1 mmol/L (3.4-5.0); Sodium 137 mmol/L (137-145)
[2024-09-07 12:44] LABS: Carcinoembryonic Antigen 2.4 ng/mL (0.0-3.0)
== END 2024-09-07 10:22 | disposition home or self-care (01) ==
PROVIDERS: PCP Family Medicine; Visit Provider Internal Medicine Hematology & Oncology
DX: C18.9 Malignant neoplasm of colon, unspecified (principal)
CPT/HCPCS: 36415; 74177; 80053; 82378; 85025; Q9967

== ENCOUNTER 2024-09-29 07:35 | Outpatient (CLI) | payer OTHER, MEDICARE, SELFPAY ==
--- OUTSIDE RECORDS SUMMARY | 2024-09-29 07:45 | XMS_ITS | Clinical Summary ---
Author Organization [facility] [employer] Address [address] [facility] [place] [address] Care Team Providers Care Operations Research Group Manager Name Role Phone Daron Sultana MD Primary Care Provider [phone] Source Comments [employer],non-owned Affiliates and Associated Physician Practices is amultiple site organization consisting of ambulatory clinics and hospital sitesin [place], [place], [place] and [place]. This disclosure is being madepursuant to the Care Everywhere program and may not contain all information available regarding this patient. 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 Gender Identity Not on file Sexual Orientation [...] 10:25 AM CDT Height 170.2 cm (5' 7.01) 08/28/2014 10:25 AM C DT Body Mass [...] patient's age to complete this topic Insurance [facility] MANAGED MEDICARE ADV * Guarantor: GEOVANNA VIERA Account Type Relation to Patient Date of Phone Billing Address Personal/Family [address] [place] [address] [facility] MANAGED MEDICARE ADV * Guarantor: GEOVANNA VIERA Account Type Relation to Patient Date of Phone Billing Address Personal/Family [address] [place] [address] [facility] MANAGED MEDICARE ADV * Guarantor: GEOVANNA VIERA Account Type Relation to Patient Date of Phone Billing Address Personal/Family [address] [place] [address] [facility] MANAGED MEDICARE ADV * Guarantor: GEOVANNA VIERA Account Type Relation to Patient Date of Phone Billing Address Personal/Family [address] [place] [address] [facility] MANAGED MEDICARE ADV * Guarantor: GEOVANNA VIERA Account Type Relation to Patient Date of Phone Billing Address Personal/Family [address] [place] [address] [facility] MANAGED MEDICARE ADV * Guarantor: GEOVANNA VIERA Account Type Relation to Patient Date of Phone Billing Address Personal/Family [address] [place] [address] [facility] MANAGED MEDICARE ADV Care Teams Operations Research Group Manager Relationship Specialty Start Date End Date Daron Sultana MD [address] [place] [address] PCP - General Family Medicine 08/28/14
--- OUTSIDE RECORDS SUMMARY | 2024-09-29 07:45 | XMS_ITS | Clinical Summary ---
[facility] Address [address] [place] [address] Care Team Providers Care Tools Programmer Name Role Phone Daron Sultana MD Primary Care Provider [phone] Allergies No known active allergies Medications tirzepatide (MOUNJARO SUBCUT) Inject by subcutaneous injection. Active dapagliflozin propanediol (FARXIGA ORAL) Take by mouth. Active lisinopriL (PRINIVIL) 2.5 mg tablet Take 1 Tablet by mouth daily. Active Active Problems No known active problems Encounters Date Type Department Care Team Description 09/10/2024 Orders Only [facility] Oncology and Hematology - [place] [address] [place] [address] Thomas Wilkes MD 09/07/2024 Orders Only [facility] Oncology and Hematology - Ashok [address] [place] [address] Thomas Wilkes MD 09/01/2024 External Device Data ST[facility] ABSTRACTION Provider, [...] Comments Blood Pressure 150/84 06/09/2024 3:48 PM ELECTRICAL ASSEMBLIES SUPERVISOR Pulse 73 06/09/2024 3:47 PM ELECTRICAL ASSEMBLIES SUPERVISOR Temperature 35.8 C (96.4 F) 06/09/2024 3:47 PM ELECTRICAL ASSEMBLIES SUPERVISOR Respiratory Rate 15 06/09/2024 3:47 PM ELECTRICAL ASSEMBLIES SUPERVISOR Oxygen Saturation 98% 06/09/2024 3:47 PM ELECTRICAL ASSEMBLIES SUPERVISOR Inhaled Oxygen Concentration - - Weight 74.9 kg (165 lb 3.2 oz) 06/09/2024 3:47 P M ELECTRICAL ASSEMBLIES SUPERVISOR Height 170.2 cm (5' 7) 11/18/2023 1:23 PM CDT Body Mass Index 25.87 11/18/2023 1:23 PM CDT Plan of Treatment Upcoming Encounters Date Type Department Care Team (Late st Contact Info) Description 10/14/2024 9:30 AM CDT Office Visit [facility] Oncology and Hematology - [place] [address] [place] [address] [facility] [address] [place] [address] Thomas Wilkes MD [address] [facility] [address] [place] [address] Health Maintenance Due Date Last [...] 01/12/20 24, 01/12/2024, 12/27/2022, Additional history exists Procedures Procedure Name Priority Date/Time Associated Diagnosis Comments COMPREHENSIVE METABOLIC PANEL Routine 09/07/2024 3:[address] ABDOMEN PELVIS W CONTRAST Routine 09/07/2024 12:54 PM CDT from Last 3 Months Results * COMPREHENSIVE METABOLIC PANEL (09/07/2024 3:44 PM CDT) Blood Thomas Wilkes MD CHEMISTRY ORDERABLES Final Resu lt * CT ABDOMEN PELVIS W CONTRAST (09/07/2024 12:54 PM CDT) Anatomical Region Laterality Modality Abdomen Computed Tomogra phy Thomas Wilkes MD CT ORDERABLES Final Result from Last 3 Months Insurance [facility] CHOICE [id number] [address] Care Teams Tools Programmer Relationship Specialty Start Date End Date Daron Sultana MD [address] [place] [address] PCP - General Family Practice 03/03/24
--- OUTSIDE RECORDS SUMMARY | 2024-09-29 07:45 | XMS_ITS | Clinical Summary ---
Author Organization [facility] Address [address] [place] [address] Care Team Providers Care Director Commercial Sales Name Role Phone Unavailable Primary Care Provider Unavailabl e Social History Tobacco Use Types Packs/Day Years Used Date Smoking Tobacco: Never Assessed Comments Unknown Sex and Gender Information Value Date Recorded Sex Assigned at Not on file Legal Sex Female 11:54 AM NURSES EDUCATOR Gender Identity Not on file Sexual Orientation [...]
--- OUTSIDE RECORDS SUMMARY | 2024-09-29 07:45 | XMS_ITS | Referral Summary ---
Author Organization [facility] Address [address] [facility] [place] [address] Care Team Providers Care Division Chair Name Role Phone Daron Sultana MD Primary Care Provider + [phone] Allergies No known active allergies Medications diazePAM [...] on file Legal Sex Female 9:03 PM PLASTICS NURSE Gender Identity Not on file Sexual Orientation Not on file Last Filed Vital Signs Vital Sign Reading Time Taken Comments Blood Pressure 123/70 05/05/2024 8:00 AM PLASTICS NURSE Pulse 98 05/05/2024 8:00 AM PLASTICS NURSE Temperature 36.9 C (98.4 F) 05/05/2024 5:39 AM PLASTICS NURSE Respiratory Rate 16 05/05/2024 8:00 AM PLASTICS NURSE Oxygen Saturation 95% 05/05/2024 8:00 AM PLASTICS NURSE Inhaled Oxygen Concentration - - Weight 75.8 kg (167 lb) 05/05/2024 4:36 AM PLASTICS NURSE Height 170.2 cm (5' 7) 05/05/2024 4:36 AM PLASTICS NURSE Body Mass Index 26.16 05/05/2024 4:36 AM PLASTICS NURSE Plan of Treatment Not on file Procedures [...] compared to prior imaging studies performed at [facility] on 12/29/2020 and 12/27/2022, and at [facility] on 11/24/2018. There are scattered areas [...] compared to prior imaging studies performed at [facility] on 12/29/2020 and 12/27/2022, and at [facility] on 11/24/2018. There are scattered areas of fibroglandular density. There is no suspicious abnormality in either breast. Impression: There is no mammographic evidence of malignancy. Annual screening mammography is recommended. OVERALL FINAL ASSESSMENT: BI-RADS CATEGORY 1: Negative. us Self Screening Mammogram IMG MAMMO PROCEDURES Fi nal Result from Last 3 Months or Most Recently Relevant to Health Maintenance [facility]TH [facility] MEDIC[facility] ADVANTAGE [facility] MEDIC[facility] ADVANTAGE Care Teams Division Chair Relationship Specialty Start Date End Date Daron Sultana MD PCP - General 07/28/17
--- OUTSIDE RECORDS SUMMARY | 2024-09-29 07:46 | XMS_ITS | Clinical Summary ---
Author Organization [facility] Address [address] [facility] [place] [address] Care Team Providers Care Endoscopy Specialty Technician Name Role Phone Daron Sultana MD Primary Care Provider + [phone] Allergies No known active allergies Medications diazePAM [...] on file Legal Sex Female 9:03 PM GELATIN PLANT SUPERVISOR Gender Identity Not on file Sexual Orientation Not on file Obstetrics History Last Filed Vital Signs Vital Sign Reading Time Taken Comments Blood Pressure 123/70 05/05/2024 8:00 AM GELATIN PLANT SUPERVISOR Pulse 98 05/05/2024 8:00 AM GELATIN PLANT SUPERVISOR Temperature 36.9 C (98.4 F) 05/05/2024 5:39 AM GELATIN PLANT SUPERVISOR Respiratory Rate 16 05/05/2024 8:00 AM GELATIN PLANT SUPERVISOR Oxygen Saturation 95% 05/05/2024 8:00 AM GELATIN PLANT SUPERVISOR Inhaled Oxygen Concentration - - Weight 75.8 kg (167 lb) 05/05/2024 4:36 AM GELATIN PLANT SUPERVISOR Height 170.2 cm (5' 7) 05/05/2024 4:36 AM GELATIN PLANT SUPERVISOR Body Mass Index 26.16 05/05/2024 4:36 AM GELATIN PLANT SUPERVISOR Plan of Treatment Health Maintenance Due Date [...] compared to prior imaging studies performed at [facility] on 12/29/2020 and 12/27/2022, and at [facility] at [facility] on 11/24/2018. There are scattered areas [...] compared to prior imaging studies performed at [facility] on 12/29/2020 and 12/27/2022, and at [facility] at [facility] on 11/24/2018. There are scattered areas of fibroglandular density. There is no suspicious abnormality in either breast. Impression: There is no mammographic evidence of malignancy. Annual screening mammography is recommended. OVERALL FINAL ASSESSMENT: BI-RADS CATEGORY 1: Negative. us Self Screening Mammogram IMG MAMMO PROCEDURES Fi nal Result from Last 3 Months or Most Recently Relevant to Health Maintenance Insurance COUNTS INCLUDE 234 BEDS AT THE [facility] [employer] [facility] IN[facility] BEDS AT THE [facility] HMO/PPO Address: [address] [address] [facility] ACCESS [facility] CHOICE PLUS [facility] MEDICARE ADVANTAGE [facility] [place] [address] [employer] MEDICARE ADVANTAGE Care Teams Endoscopy Specialty Technician Relationship Specialty Start Date End Date Daron Sultana MD PCP - General 07/28/17
--- NOTE | 2024-09-29 09:07 | ECG_ITS ---
Test Date: 2024-09-29 09:26:25 Measurements Intervals [place] Rate: 71 P: 26 WA: 183 QRS: -7 QRSD: 91 T: 16 QT: 383 QTc: 416 Interpretive Statements SINUS RHYTHM CONSIDER INFERIOR INFARCT, AGE INDETERMINATE BASELINE ARTIFACT- I, II, III, AVR, AVL, AVF ABNORMAL ECG Compared to ECG 10/09/2023 11:12:55 No significant changes Electronically Signed On 09-29-2024 09:39:29 CDT by Rubén Ramirez D.O.
[2024-09-29 09:53] LABS: Hemoglobin A1C 6.7 % (<5.7)
[2024-09-29 10:19] LABS: Urine Cotinine NEGATIVE
[2024-09-29 11:02] LABS: MRSA (PCR) NOT DETECTED (NOT DETECTE)
== END 2024-09-29 07:36 | disposition home or self-care (01) ==
LOC: ANHSURGERY 07:43
PROVIDERS: PCP Family Medicine; Visit Provider Orthopaedic Surgery
DX: Z01.818 Encounter for other preprocedural examination (principal); M16.12 Unilateral primary osteoarthritis, left hip
CPT/HCPCS: 80307; 83036; 87641; 93005

== ENCOUNTER 2024-10-08 12:16 | Outpatient (CLI) | payer OTHER, MEDICARE, SELFPAY ==
[2024-10-08 12:40] LABS: Basophils Percent Auto 0.6 % (0.2-1.2); Eosinophils Absolute Auto 0.1 K/mm3 (0-0.3); Eosinophils Percent Auto 1.5 % (0-4.4); Hematocrit 41.8 % (37.0-47.0); Hemoglobin 13.3 g/dL (12.0-15.0); Immature Granulocyte Absolute 0.01 K/mm3 (0.00-0.031); Immature Granulocyte Percent A 0.2 % (0-0.5); Lymphocytes Absolute Auto 1.94 K/mm3 (0.9-3.2); Lymphocytes Percent Auto 31.4 % (18.3-44.2); Mean Corpuscular HGB Conc 31.8 g/dl (32-36); Mean Corpuscular Hemoglobin 26.7 pg (26-34); Mean Corpuscular Volume 83.8 fl (80-100); Mean Platelet Volume 9.1 fl (7.4-10.4); Monocytes Absolute Auto 0.5 K/mm3 (0.1-0.6); Monocytes Percent Auto 7.8 % (2.6-8.5); Neutrophils Absolute Auto 3.6 K/mm3 (1.3-6.7); Neutrophils Percent Auto 58.5 % (45.5-73.1); Platelet Count Result 357 k/mm3 (150-375); Red Blood Count 4.99 M/mm3 (4.2-5.4); Red Cell Distribution Width 13.6 % (11.5-14.5); White Blood Count 6.2 K/mm3 (4.5-10.0)
[2024-10-08 13:17] LABS: Alanine Aminotransferase 16 U/L (6-35); Albumin Level 4.3 g/dL (3.5-5.1); Alkaline Phosphatase 90 U/L (38-126); Anion Gap 9 mmol/L (4-12); Aspartate Amino Transferase 27 U/L (14-36); Bilirubin,Total 0.3 mg/dL (0.2-1.3); Blood Urea Nitrogen 28 mg/dL (7-17); Calcium 9.8 mg/dL (8.4-10.2); Carbon Dioxide 24 mmol/L (22-30); Chloride 107 mmol/L (98-107); Estimated Glomerular Filt Rate > 60; Glucose 106 mg/dL (65-110); Sodium 140 mmol/L (137-145); Total Protein 7.7 g/dL (6.3-8.2)
[2024-10-08 13:48] LABS: Carcinoembryonic Antigen 2.3 ng/mL (0.0-3.0)
== END 2024-10-08 12:17 | disposition home or self-care (01) ==
PROVIDERS: PCP Family Medicine; Visit Provider Internal Medicine Hematology & Oncology
DX: C18.9 Malignant neoplasm of colon, unspecified (principal)
CPT/HCPCS: 36415; 80053; 82378; 85025

== ENCOUNTER 2024-10-19 07:22 | Outpatient (CLI) | payer OTHER, MEDICARE, SELFPAY ==
--- NOTE | ~2024-10-19 | NM_ITS ---
EXAMINATION: NM melony stress w perfusion DATE: 10/19/2024 11:45 CDT INDICATION: Preop procedural examination. TECHNIQUE: Rest images were obtained following intravenous administration of 10.9 mCi Tc99m tetrofosm in (Myoview). The patient was infused intravenously with Lexiscan (regadenoson). Then, 34.9 mCi Tc99m tetrofosmin (Myoview) was administered intravenously, and stress images were obtained. Data was mayela nstructed into short axis and horizontal and vertical long axis SPECT images. Gated SPECT images were also obtained. COMPARISON: No prior studies for comparison. . FINDINGS: There is no definite reversible or fixed perfusion abnormality to suggest ischemia or infar ction. There is no segmental wall motion abnormality. Left ventricular ejection fraction measures 6 9%. IMPRESSION: 1. No definite ischemia or infarct. 2. Normal left ventricular ejection fraction measuring 69%. Reviewed, dictated and finalized at location A.
--- OUTSIDE RECORDS SUMMARY | 2024-10-19 07:26 | XMS_ITS | Clinical Summary ---
Author Organization [facility] Address [address] [place] [address] Care Team Providers Care Adolescent Specialist Name Role Phone Unavailable Primary Care Provider Unavailabl e Social History Tobacco Use Types Packs/Day Years Used Date Smoking Tobacco: Never Assessed Comments Unknown Sex and Gender Information Value Date Recorded Sex Assigned at Not on file Legal Sex Female 11:54 AM EAR MOLD LABORATORY TECHNICIAN Gender Identity Not on file Sexual Orientation [...]
--- OUTSIDE RECORDS SUMMARY | 2024-10-19 07:26 | XMS_ITS | Clinical Summary ---
Author Organization [facility] Address [address] [facility] [place] [address] Care Team Providers Care Summer Associate Name Role Phone Daron Sultana MD Primary Care Provider [phone] Source Comments [employer] [facility],non-owned Affiliates and Associated Physician Practices is amultiple site organization consisting of ambulatory clinics and hospital sitesin [place], [place], [place] and [place]. This disclosure is being madepursuant to the Care Everywhere program and may not contain all information available regarding this patient. 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 Gender Identity Not on file Sexual Orientation [...] patient's age to complete this topic Insurance [facility] MANAGED MEDICARE ADV * Guarantor: GEOVANNA VIERA Account Type Relation to Patient Date of Phone Billing Address Personal/Family [address] [place] [address] [facility] MANAGED MEDICARE ADV * Guarantor: GEOVANNA VIERA Account Type Relation to Patient Date of Phone Billing Address Personal/Family [address] [place] [address] [facility] MANAGED MEDICARE ADV * Guarantor: GEOVANNA VIERA Account Type Relation to Patient Date of Phone Billing Address Personal/Family [address] [place] [address] [facility] MANAGED MEDICARE ADV * Guarantor: GEOVANNA VIERA Account Type Relation to Patient Date of Phone Billing Address Personal/Family [address] [place] [address] [facility] MANAGED MEDICARE ADV * Guarantor: GEOVANNA VIERA Account Type Relation to Patient Date of Phone Billing Address Personal/Family [address] [place] [address] [facility] MANAGED MEDICARE ADV * Guarantor: GEOVANNA VIERA Account Type Relation to Patient Date of Phone Billing Address Personal/Family [address] [place] [address] [facility] MANAGED MEDICARE ADV Care Teams Summer Associate Relationship Specialty Start Date End Date Daron Sultana MD [address] [place] [address] PCP - General Family Medicine 08/28/14
--- OUTSIDE RECORDS SUMMARY | 2024-10-19 07:26 | XMS_ITS | Referral Summary ---
Author Organization [facility] Address [address] [facility] [address] [address] Care Team Providers Care Specialized Language Instructor Name Role Phone Daron Sultana MD Primary Care Provider + [phone] Allergies No known active allergies Medications diazePAM [...] on file Legal Sex Female 9:03 PM NUTRITION AND DIETETICS INSTRUCTOR Gender Identity Not on file Sexual Orientation Not on file Last Filed Vital Signs Vital Sign Reading Time Taken Comments Blood Pressure 123/70 05/05/2024 8:00 AM NUTRITION AND DIETETICS INSTRUCTOR Pulse 98 05/05/2024 8:00 AM NUTRITION AND DIETETICS INSTRUCTOR Temperature 36.9 C (98.4 F) 05/05/2024 5:39 AM NUTRITION AND DIETETICS INSTRUCTOR Respiratory Rate 16 05/05/2024 8:00 AM NUTRITION AND DIETETICS INSTRUCTOR Oxygen Saturation 95% 05/05/2024 8:00 AM NUTRITION AND DIETETICS INSTRUCTOR Inhaled Oxygen Concentration - - Weight 75.8 kg (167 lb) 05/05/2024 4:36 AM NUTRITION AND DIETETICS INSTRUCTOR Height 170.2 cm (5' 7) 05/05/2024 4:36 AM NUTRITION AND DIETETICS INSTRUCTOR Body Mass Index 26.16 05/05/2024 4:36 AM NUTRITION AND DIETETICS INSTRUCTOR Plan of Treatment Not on file Procedures [...] compared to prior imaging studies performed at [facility] on 12/29/2020 and 12/27/2022, and at [facility] on 11/24/2018. There are scattered areas [...] compared to prior imaging studies performed at [facility] on 12/29/2020 and 12/27/2022, and at [facility] on 11/24/2018. There are scattered areas of fibroglandular density. There is no suspicious abnormality in either breast. Impression: There is no mammographic evidence of malignancy. Annual screening mammography is recommended. OVERALL FINAL ASSESSMENT: BI-RADS CATEGORY 1: Negative. us Self Screening Mammogram IMG MAMMO PROCEDURES Fi nal Result from Last 3 Months or Most Recently Relevant to Health Maintenance [facility] ANTH ACCESS [facility] CHOICE PLUS [facility] MEDICARE ADVANTAGE [facility] MEDICARE ADVANTAGE Care Teams Specialized Language Instructor Relationship Specialty Start Date End Date Daron Sultana MD PCP - General 07/28/17
--- OUTSIDE RECORDS SUMMARY | 2024-10-19 07:26 | XMS_ITS | Clinical Summary ---
Author Organization 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 Gender Identity Not on file Sexual Orientation Not on file Obstetrics History Last Filed Vital Signs Vital Sign Reading Time Taken Comments Blood Pressure 123/70 05/05/2024 8:00 AM SCHOOL BUS OPERATOR Pulse 98 05/05/2024 8:00 AM SCHOOL BUS OPERATOR Temperature 36.9 C (98.4 F) 05/05/2024 5:39 AM SCHOOL BUS OPERATOR Respiratory Rate 16 05/05/2024 8:00 AM SCHOOL BUS OPERATOR Oxygen Saturation 95% 05/05/2024 8:00 AM SCHOOL BUS OPERATOR Inhaled Oxygen Concentration - - Weight 75.8 kg (167 lb) 05/05/2024 4:36 AM SCHOOL BUS OPERATOR Height 170.2 cm (5' 7) 05/05/2024 4:36 AM SCHOOL BUS OPERATOR Body Mass Index 26.16 05/05/2024 4:36 AM SCHOOL BUS OPERATOR Plan of Treatment Health Maintenance Due [...] compared to prior imaging studies performed at [facility] on 12/29/2020 and 12/27/2022, and at [facility] at [facility] on [...] compared to prior imaging studies performed at [facility] on 12/29/2020 and 12/27/2022, and at [facility] at [facility] on [...] Recently Relevant to Health Maintenance Insurance [facility]LY [facility] ACCESS [facility] CHOICE PLUS [facility] MEDICARE ADVANTAGE [facility] [place] [address] [facility] MEDICARE ADVANTAGE Care Teams Insight Director Relationship Specialty Start Date End Date Daron Sultana MD PCP - General 07/28/17
--- OUTSIDE RECORDS SUMMARY | 2024-10-19 07:26 | XMS_ITS | Clinical Summary ---
Author Organization [facility] Address [address] [place] [address] Care Team Providers Care Benefits Consultant Name Role Phone Daron Sultana MD Primary Care Provider [phone] Allergies No known active allergies Medications tirzepatide (MOUNJARO SUBCUT) Inject by subcutaneous injection. Active dapagliflozin propanediol (FARXIGA ORAL) Take by mouth. Active lisinopriL (PRINIVIL) 2.5 mg tablet Take 1 Tablet by mouth daily. Active Active Problems No known active problems Encounters Date Type Department Care Team Description 10/14/2024 9:30 AM CDT Office Visit [facility] Oncology and Hematology - [place] [address] [place] [id number] Thomas Wilkes MD Malignant neoplasm of colon, unspecified part of colon (CMS/HCC) (Primary Dx) 10/12/[address] [facility] Oncology and Hematology - [place] [address] [facility] [place] [address] Thomas Wilkes MD 09/10/[address] [facility] Oncology and Hematology - [place] [address] [facility] [place] [address] Thomas iWlkes MD 09/07/[address] [facility] Oncology and Hematology - [place] [address] [place] [address] Thomas Wilkes MD 09/01/2024 External Device Data [...] Sign Reading Time Taken Comments Blood Pressure 136/80 10/14/2024 9:17 AM CDT Pulse 77 10/14/2024 9:17 AM CDT Temperature 36.4 C (97.5 F) 10/14/2024 9:17 AM CDT Respiratory Rate 15 10/14/2024 9:17 AM CDT Oxygen Saturation 98% 10/14/2024 9:17 AM CDT Inhaled Oxygen Concentration - - Weight 75.8 kg (167 lb) 10/14/2024 9:17 AM CDT Height 170.2 cm (5' 7) 11/18/2023 1:23 PM CDT Body Mass Index 26.16 11/18/2023 1:23 PM CDT Plan of Treatment Upcoming Encounters Date Type Department Care Team (Late st Contact Info) Description 02/15/2025 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 Oncology and Hematology - [place] [address] [facility] [address] [place] [address] Thomas Wilkes MD [address] [facility] [address] [place] [address] Health Maintenance Due Date Last Done Comments Pre-Diabetes and Diabetes Screening 1955 DTAP/TDAP/TD VACCINES (1 - Tdap) 11/17/1975 PNEUMOCOCCAL VACCINE 50+ YEA RS (1 of 1 - PCV) 2006 ZOSTER VACCINE (1 of 2) 2006 RSV VACCINE (60+ or ) (1 - Risk 60-74 years 1-dose series) 2016 OSTEOPOROSIS SCREENING 2021 COVID-19 Vaccine (2 - 2023-2 5 season) 2023 03/14/2021 Preventative Visit- Commercial 04/14/2024 INFLUENZA VACCINE (#1) 2024 BREAST CANCER SCREENING 01/11/2025 01/12/20 24, 01/12/2024, 12/27/2022, Additional history exists Procedures Procedure Name Priority Date/Time Associated Diagnosis Comments COMPREHENSIVE METABOLIC PANEL Routine 10/08/2024 7:51 AM CDT COMPREHENSIVE METABOLIC PANEL Routine 09/07/2024 3:[address] ABDOMEN PELVIS W CONTRAST Routine 09/07/2024 12:54 PM CDT from Last 3 Months Results * COMPREHENSIVE METABOLIC PANEL (10/08/2024 7:51 AM CDT) Only the most recent of2 resultswithin the time period is included. Blood us Thomas Wilkes MD CHEMISTRY ORDERABLES Final Resu lt * CT ABDOMEN PELVIS W CONTRAST (09/07/2024 12:54 PM CDT) Anatomical Region Laterality Modality Abdomen Computed Tomogra phy us Thomas Wilkes MD CT ORDERABLES Final Result from Last 3 Months Insurance [facility] CHOICE [id number] [place] [address] [place] [id number] Care Teams Benefits Consultant Relationship Specialty Start Date End Date Daron Sultana MD [address] [place] [address] PCP - General Family Practice 03/03/24
--- NOTE | 2024-10-19 07:31 | EST_ITS ---
Patient Info Name: Judy Martínez Age: 68 years : 1955 Gender: Female Ht: 65 in Wt: 165 lbs BSA: 1.87 m2 HR: 68 bpm BP: 147 / 84 mmHg Exam Date: 10/19/2024 7:31 AM Patient Status: O Admit Date: 10/19/2024 Exam Type: CA stress melony w NM A regadenoson stress test was performed. Staff Referring Physician: Rubén Ramirez DO Attending Provider: Rubén Ramirez DO Exercise Technologist: Emmy Houser Exercise Physician: Rubén Ramirez DO Summary 1. 1. Negative lexiscan stress test for ischemic ST changes by ECG criteria. 2. 2. Baseline hypertension. 3. 3. Nuclear scan to follow and will be reported separately. Please correlate with it. 4. 4. Patient informed of the above results. Protocol: Lexiscan Stress ECG Details Stage: REST Duration (min): 1 min : 6 sec HR (bpm): 70 SBP (mmHg): 147 DBP (mmHg): 84 Stage: REST Duration (min): 9 min : 28 sec HR (bpm): 69 SBP (mmHg): 147 DBP (mmHg): 84 Stage: STAGE 1 Duration (min): 0 min : 59 sec HR (bpm): 105 SBP (mmHg): 154 DBP (mmHg): 71 Stage: RECOVERY Duration (min): 1 min : 0 sec HR (bpm): 103 SBP (mmHg): 154 DBP (mmHg): 71 Stage: RECOVERY Duration (min): 2 min : 0 sec HR (bpm): 94 SBP (mmHg): 154 DBP (mmHg): 71 Stage: RECOVERY Duration (min): 3 min : 0 sec HR (bpm): 92 SBP (mmHg): 137 DBP (mmHg): 72 Stage: RECOVERY Duration (min): 3 min : 32 sec HR (bpm): 92 SBP (mmHg): 137 DBP (mmHg): 72 Rest HR: 69 bpm Peak HR: 107 bpm Rest Sys BP: 147 mmHg Peak Sys BP: 154 mmHg Max Pred HR: 153 bpm % Max Pred HR: 70 % Target HR: 130 bpm Max RPP: 16,478 bpm*mmHg Termination Reason: Completed protocol Cardiac Symptoms: None Total Time: 1 min : 0 sec Rest Alston BP: 84 mmHg Peak [place] BP: 71 mmHg Total Dose: 0.4 mg Resting ECG Sinus rhythm, borderline ST-T wave in inferior leads. Stress ECG No ST changes. Arrhythmias None. Report Signatures
== END 2024-10-19 07:23 | disposition home or self-care (01) ==
PROVIDERS: PCP Family Medicine; Visit Provider Internal Medicine Cardiovascular Disease
DX: Z01.810 Encounter for preprocedural cardiovascular examination (principal)
CPT/HCPCS: 78452; 93017; A9502; J2785

== ENCOUNTER 2024-10-26 00:26 | Day surgery (SDC) | payer OTHER, MEDICARE, SELFPAY ==
[2024-09-29 08:19] VITALS: BP 140/68; PULSE 73; RESP 16; TEMP 36.4; O2SAT 98; BMI 28.5
--- NOTE | 2024-09-29 08:43 | PC.NURSE ---
Report to the Outpatient Waiting Room, entrance under the green pavilion located off [facility], at time ____6:00AM___ on date ___10/26/24___. Planned Procedure Time: ___7:30AM____.? Time changes happen often and if your time is changed the preop area will call you the afternoon before. - You and your visitor will be asked to self-screen and do not enter if you have any COVID symptoms. Please call surgeon if you need to reschedule. - A mask is optional within the hospital at this time. Patients may have clear liquids (water, carbonated beverages, clear teas, apple juice) until 3 hours prior to surgery (4:30AM) with a maximum of 20 ounces. - No food from midnight until time of surgery and no smoking, or chewing tobacco (or any form of nicotine). No chewing gum, candy or mints. Take only the following medications with a SIP of water on the morning of surgery: ___NONE DO NOT STOP ANY OF YOUR OTHER PRESCRIPTION MEDICATIONS PRIOR TO SURGERY EXCEPT THE FOLLOWING Hold all vitamins and supplements for 3 days per anesthesiologist.- LAST DOSE 10/22/24 Medications to discontinue per physician ___HOLD ALL NSAIDS(MELOXICAM, IBUPROFEN) 7 DAYS PRE-OP PER DR REDD Date to take last dose 10/18/24 Please no make-up, nail albanian, hairspray, perfume, deodorant, or body powder the day of surgery.? No jewelry (including any body piercings) or valuables the day of surgery, leave them at home.? Please take a shower or bath the night before, or the morning of, surgery with an antibacterial soap.? Wear comfortable, loose fitting clothing.? - Jewelry must be removed prior to entering the operating room.? Rings and piercings that are not removed may be cut off. - The hospital will not accept responsibility for valuables.? - Please leave all valuables, including medications, at home the day of surgery. If you are going home after surgery, a licensed lyft driver must drive you home.? - NO public transportation without another adult if you receive anesthesia. - We recommend that an adult stay with you for 24 hours following discharge. - We also recommend that you do not drive, make important decision, drink alcoholic beverages, or take any drugs that were not prescribed by your health care provider for at least 24 hours after your discharge time. Follow any additional instructions given to you from your surgeon. Telephone instructions given to ____PATIENT and asked if any additional questions and then verbalized understanding. Patient advised to call surgeon office or pre surgery nurse liaison [phone] if any additional questions.
[2024-10-26] VITALS (13 sets, daily range): BP systolic 133–164; BP diastolic 57–93; PULSE 61–97; RESP 14–20; TEMP 35.8–36.8; O2SAT 94–100; BMI 27.8
--- NOTE | ~2024-10-26 | XR_ITS ---
XR hip LT min 2V Ordering provider: Darnell Sparks MD History: . POST-OP, LEFT HIP NKECHI . Comparison: October 04, 2024 FINDINGS: BONES: No acute fracture or dislocation. HIP JOINT SPACES: Left hip arthroplasty. SACROILIAC JOINT SPACES/LUMBAR SPINE: The sacroiliac joint spaces shows left sacroiliitis. Mild degen erative changes of the visualized lower lumbar spine. PUBIC SYMPHYSIS: Normal. SOFT TISSUES: Postoperative changes in the subcutaneous soft tissues. IMPRESSION: Left hip arthroplasty. Reviewed, dictated and finalized at location A. IMPRESSION: Left hip arthroplasty.
--- OUTSIDE RECORDS SUMMARY | 2024-10-26 00:29 | XMS_ITS | Clinical Summary ---
Author Organization [facility] Address [address] [facility] [place] [address] Care Team Providers Care Fuel Distribution System Operator Name Role Phone Daron Sultana MD Primary Care Provider [phone] Source Comments [employer],non-owned Affiliates and Associated Physician Practices is amultiple site organization consisting of ambulatory clinics and hospital sitesin [place], [place], [place] and [place]. This disclosure is being madepursuant to the Care Everywhere program and may not contain all information available regarding this patient. 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 Gender Identity Not on file Sexual Orientation [...] VACCINE (1 - 2023-2 5 season) 2023 DEPRESSION SCREENING 04/14/2024 MEDICARE AWV CALENDAR YEAR 2024 INFLUENZA VACCINE (#1) 2024 Respiratory Syncytial Virus (RSV) Vaccine Pt: [...] patient's age to complete this topic Insurance [facility] MANAGED MEDICARE ADV * Guarantor: GEOVANNA VIERA Account Type Relation to Patient Date of Phone Billing Address Personal/Family [address] [place] [address] [facility] MANAGED MEDICARE ADV * Guarantor: GEOVANNA VIERA Account Type Relation to Patient Date of Phone Billing Address Personal/Family [address] [place] [address] [facility] MANAGED MEDICARE ADV * Guarantor: GEOVANNA VIERA Account Type Relation to Patient Date of Phone Billing Address Personal/Family [address] [place] [address] [facility] MANAGED MEDICARE ADV * Guarantor: GEOVANNA VIERA Account Type Relation to Patient Date of Phone Billing Address Personal/Family [address] [place] [address] [facility] MANAGED MEDICARE ADV * Guarantor: GEOVANNA VIERA Account Type Relation to Patient Date of Phone Billing Address Personal/Family [address] [place] [address] [facility] MANAGED MEDICARE ADV * Guarantor: GEOVANNA VIERA Account Type Relation to Patient Date of Phone Billing Address Personal/Family [address] [place] [address] [facility] [place] [address] [facility] [place] [address] Care Teams Fuel Distribution System Operator Relationship Specialty Start Date End Date Daron Sultana MD [address] [place] [address] PCP - General Family Medicine 08/28/14
--- OUTSIDE RECORDS SUMMARY | 2024-10-26 00:29 | XMS_ITS | Clinical Summary ---
Author Organization [facility]ino [facility] Address [address] [place] [address] Care Team Providers Care Perfume Compounder Name Role Phone Daron Sultana MD Primary Care Provider [phone] Allergies No known active allergies Medications tirzepatide [...] Hematology - Ashok [address] [place] [id number] Thomas Wilkes MD Malignant neoplasm of colon, unspecified part of colon (CMS/HCC) (Primary Dx) 10/12/[address] [facility] Oncology and Hematology - Ashok [address] [place] [address] Thomas Wilkes MD 09/10/[address] [facility] Oncology and Hematology - Ashok [address] [place] [address] Thomas Wilkes MD 09/07/[address] 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 Oncology and Hematology - Ashok [address] [facility] [address] [place] [address] Thomas Wilkes MD [address] [facility] [address] [place] [address] Health Maintenance Due Date Last Done Comments Pre-Diabetes and Diabetes Screening 1955 DTAP/TDAP/TD VACCINES (1 - Tdap) 11/17/1975 PNEUMOCOCCAL VACCINE 50+ YEA RS (1 of 1 - PCV) 2006 ZOSTER VACCINE (1 of 2) 2006 RSV VACCINE (60+ or ) (1 - Risk 60-74 years 1-dose series) 2016 OSTEOPOROSIS SCREENING 2021 COVID-19 Vaccine (2 - 2023-2 5 season) 2023 03/14/2021 INFLUENZA VACCINE (#1) 2024 BREAST CANCER SCREENING [...] Final Result from Last 3 Months Insurance [facility] [id number] [facility] [id number] [place] [id number] Care Teams Perfume Compounder Relationship Specialty Start Date End Date Daron Sultana MD [address] [place] [address] PCP - General Family Practice 03/03/24
--- OUTSIDE RECORDS SUMMARY | 2024-10-26 00:29 | XMS_ITS | Clinical Summary ---
Author Organization 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
--- OUTSIDE RECORDS SUMMARY | 2024-10-26 00:29 | XMS_ITS | Clinical Summary ---
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 Gender Identity Not on file Sexual Orientation Not on file Obstetrics History Last Filed Vital Signs Vital Sign Reading Time Taken Comments Blood Pressure 123/70 05/05/2024 8:00 AM SIGNAL TIMER Pulse 98 05/05/2024 8:00 AM SIGNAL TIMER Temperature 36.9 C (98.4 F) 05/05/2024 5:39 AM SIGNAL TIMER Respiratory Rate 16 05/05/2024 8:00 AM SIGNAL TIMER Oxygen Saturation 95% 05/05/2024 8:00 AM SIGNAL TIMER Inhaled Oxygen Concentration - - Weight 75.8 kg (167 lb) 05/05/2024 4:36 AM SIGNAL TIMER Height 170.2 cm (5' 7) 05/05/2024 4:36 AM SIGNAL TIMER Body Mass Index 26.16 05/05/2024 4:36 AM SIGNAL TIMER Plan of Treatment Health Maintenance Due Date [...] compared to prior imaging studies performed at [facility] on 12/29/2020 and 12/27/2022, and at [facility] at [facility] on 11/24/2018. There are scattered [...] compared to prior imaging studies performed at [facility] on 12/29/2020 and 12/27/2022, and at [facility] at [facility] on 11/24/2018. There are scattered areas of fibroglandular density. There is no suspicious abnormality in either breast. Impression: There is no mammographic evidence of malignancy. Annual screening mammography is recommended. OVERALL FINAL ASSESSMENT: BI-RADS CATEGORY 1: Negative. us Self Screening Mammogram IMG MAMMO PROCEDURES Fi nal Result from Last 3 Months or Most Recently Relevant to Health Maintenance Insurance [facility] COUNTS INCLUDE 234 BEDS AT THE [facility] ACCESS [facility] CHOICE [facility]US [facility] MEDICARE ADVANTAGE [facility] [place] [address] [address] [facility] MEDICARE ADVANTAGE Care Teams Skin Washer Relationship Specialty Start Date End Date Daron Sultana MD PCP - General 07/28/17
--- OUTSIDE RECORDS SUMMARY | 2024-10-26 00:29 | XMS_ITS | Referral Summary ---
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..] compared to prior imaging studies performed at [facility] on 12/29/2020 and 12/27/2022, and at [facility] on 11/24/2018. There are scattered [...] compared to prior imaging studies performed at [facility] on 12/29/2020 and 12/27/2022, and at [facility] on 11/24/2018. There are scattered areas of fibroglandular density. There is no suspicious abnormality in either breast. Impression: There is no mammographic evidence of malignancy. Annual screening mammography is recommended. OVERALL FINAL ASSESSMENT: BI-RADS CATEGORY 1: Negative. us Self Screening Mammogram IMG MAMMO PROCEDURES Fi nal Result from Last 3 Months or Most Recently Relevant to Health Maintenance Insurance [facility] ANTH ACCESS [facility] CHOICE [facility] H[facility]/PPO Address: [address] [address] [place] [address] [facility] MEDICARE ADVANTAGE [facility] H[facility]/PPO Address: [facility] [address] [place] [address] [facility] HMO/PPO Address: [address] [address] [place] [address] [facility] MEDICARE ADVANTAGE [facility] MEDICARE Address: [address] [address] [place] [address] Care Teams Labor Mediator Relationship Specialty Start Date End Date Daron Sultana MD PCP - General 07/28/17
[2024-10-26] MEDS: LACTATED RINGERS 1,000 ML 30 ML IV CONT ×2 (06:40→09:44)
[2024-10-26] MEDS: ACETAMINOPHEN 500 MG TABLET 1000 MG PO (06:45)
--- NOTE | 2024-10-26 06:54 | P.PNAN_ITS ---
Anes - Initial Pre Proc Eval Procedure: Operation Date: 10/26/24 07:30 Proposed Procedures p Left Total Hip Arthroplasty - Darnell Sparks MD Date/Time: 10/26/24 06:54 Surgeon: Darnell Sparks MD Pre Op Diagnosis: Prim OA Left Hip Patient Data Age: 68 Gender: F Height: 1.65 m Weight: 77.9 kg Last Vital Signs Temp 36.4 C 09/29/24 08:19 Pulse 73 09/29/24 08:19 Resp 16 09/29/24 08:19 BP 140/68 09/29/24 08:19 Pulse Ox 98 09/29/24 08:19 O2 Del Method Room Air 09/29/24 08:19 Allergies Allergy/AdvReac Type Severity Reaction Status Date / Time lisinopril Allergy Severe angioedema Verified 10/26/24 06:45 Home Medications ?Medication ?Instructions ?Recorded ?Confirmed ?Type lancets (Coaguchek Lancets) #400 ea 12/25/22 10/08/24 Rx atorvastatin 20 mg tablet (Lipitor) 20 mg PO DAILY #90 tabs 06/23/24 10/08/24 Rx tirzepatide 10 mg/0.5 mL 10 mg (0.5 mL) subcut WEEKLY #6 mL 08/19/24 10/26/24 Rx subcutaneous pen injector (Mounjaro) dapagliflozin propanediol 10 mg 10 mg PO DAILY #90 tabs 09/27/24 10/08/24 Rx tablet (Farxiga) acetaminophen 650 mg 650 mg PO Q12H PRN pain 09/29/24 10/08/24 History tablet,extended release (Arthritis Pain Reliever) ibuprofen 800 mg tablet (IBU) 800 mg PO TID PRN pain 09/29/24 10/26/24 History melatonin 10 mg capsule 10 mg PO HS 09/29/24 10/08/24 History multivitamin (Daily Multi-Vitamin 1 tablet PO DAILY 09/29/24 10/26/24 History tablet) mupirocin 2 % topical ointment 1 applic topical BID #22 grams 09/30/24 10/08/24 Rx (Centany) meloxicam 15 mg tablet 15 mg PO DAILY #30 tabs 10/24/24 10/26/24 Rx Laboratory Tests 10/26/24 10/26/24 06:26 06:39 POC Capillary Glucose 100 mg/dl (65-105) Blood Type Pending Antibody Screen Pending Patient hx anesthesia problems: none Family hx anesthesia problems: none Results Review: All pre-operative results and documents have been reviewed as part of the pre- operative evaluation. [facility] Past Medical History Medical History Allergic reaction Angioedema Carcinoma in situ of cecum Mass of colon Colon cancer screening BMI 25.0-25.9,adult Osteoarthritis of left knee PTSD (post-traumatic stress disorder) COVID-19 Right foot pain Constipation BMI 29.0-29.9,adult Essential (primary) hypertension Type 2 diabetes mellitus with hyperglycemia Surgical History Surgical History H/O right hemicolectomy Dr. Jcarlos Hernández 10/15/23 History of hemicolectomy robotic lap right hemicolectomy 10/15/23 Dr Jcarlos Hernández History of bilateral salpingo-oophorectomy History of hysterectomy Family History Family History Mother Cancer Tobacco abuse Acute myocardial infarction Heart disease Hypertension Father Family history of heart disease in male family member before age 55 Lung cancer Tobacco abuse Sibling No problems noted. Social History Social History Smoking status: Never smoker Second hand tobacco smoke exposure: Yes Alcohol intake: current Drinks per week: 2 Substance use: never Substance use type: does not use Do You Feel Safe in your Home?: Yes Lack of Transportation: No Lack of Food: Never True Current Housing: I Have Housing Concerned About Future Housing: No Difficulty Paying Gas/Electric Bills: No Difficulty Paying for Meds: No Currently Unemployed: No Education: Bachelor's Degree Difficulty w/ Childcare or Family Care: No Living arrangements: with family Additional living arrangements comments: SON AND EX-PARTNER Occupation/Education: retired 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 Informed Consent: The patient's anesthetic plan and its attendant risks and benefits were discussed with the patient/family/POA. Questions were solicited and answers provided to the satisfaction of the patient/family/POA.
[2024-10-26] MEDS: TRANEXAMIC ACID 1,000MG/ISO100 1,000 MG/100 ML BAG 200 MG IVPB (07:01)
--- NOTE | 2024-10-26 07:16 | WPDHPUPDATE1 ---
History and Physical Update Update Date/Time: 10/26/24 07:16 History and Physical has been reviewed, including an updated exam of the patient. There are NO changes in the patient's condition. Risks, benefits, and alternatives have been discussed and questions answered. Patient agrees to proceed with procedure.
[2024-10-26] MEDS: ceFAZolin 2 GM in SODIUM CHLORIDE 0.9% IV 50 ML 100 ML IVPB (07:34)
[2024-10-26] MEDS: SODIUM CHLORIDE 0.9% IV 37.7 ML, MORPHINE SULFATE INJ (*CRX) 2 MG, ROPivacaine HCL 1% 2... INFILTRATE (08:32)
--- NOTE | 2024-10-26 09:16 | W.PM.PROC2 ---
Procedure Note - Detailed Date of Procedure 10/26/24 Pre-op Diagnosis Left hip degenerative arthritis. Post-op Diagnosis Same Procedure Performed Left Total Hip Arthroplasty Surgeon Darnell Sparks MD Anesthesia General Findings End stage disease. Periacetabular osteophytes removed. Piriformis spared. Description of Procedure The patient was given preoperative antibiotics. A general anesthetic was administered. The patient was carefully placed in the lateral decubitus position on the PEG board. The shoulders and hips were carefully positioned for component and leg length positioning reference. The hip was prepped and draped in the usual sterile fashion. A longitudinal incision was created over the posterior aspect of the greater trochanter. Careful dissection was brought down through the deep fascia with electrocautery. A minimally invasive optimized posterior approach to the hip was performed. The short external rotators and capsule were taken down in an L-shaped capsulotomy. The tissue was tagged for later repair using number 2 high strength suture. The femoral neck was measured and taken in situ. The femoral head was removed. The acetabulum was carefully exposed. The inferior capsule was released. The labrum was resected. The acetabulum was sequentially reamed to the intended cup size. The cup was impacted into position with excellent press-fit. Typical anatomic landmarks, including the bony contact points as well as the inferior transverse acetabular ligament were used to confirm cup positioning with preoperative templating. Attention was turned to the femur, which was carefully exposed. The hip was reamed and then broached sequentially. Excellent press-fit was obtained with the broach. The hip was trialed. Measurements were utilized, including the lesser trochanter as well as the center of the femoral head and the tip of the trochanter, and excellent assessment of the offset and leg lengths were confirmed. The real component was impacted into position. Trialing confirmed appropriate leg length and offset with soft tissue balancing as well apparent feel of the leg, both at the knee and the heel. Soft tissues were assessed using the the iliotibial band. Reduction of the posterior capsule and external rotators were also used as a secondary assessment. The hip was copiously irrigated with pulsatile lavage periodically throughout the procedure. The real components were then assembled and reduced. The hip was stable throughout typical maneuvers, including extension, external rotation to 70 degrees, the position of sleep as well as flexion to 90 degrees with internal rotation past 35 degrees. The shake test confirmed stability without impingement. Osteophytes were removed as necessary. The short external rotators and capsule were repaired back to the posterior trochanter through drill holes. The deep fascia was repaired with running number 2 barbed suture, followed by 2-0 Stratafix suture and 3-0 Stratafix suture in the dermis. Steri-Strips were placed on the skin, followed by a sterile occlusive dressing. There were no complications. Meticulous hemostasis was maintained with the AquaMantys device. The patient was brought to the recovery room in stable condition. There were no complications. Implants The [place] Insignia hip stem, standard offset size 4 , was utilized with excellent press-fit. The 52 mm Trident II acetabular component was impacted with excellent press-fit stability. Standard polyethylene liner the +0, 36 mm Biolox ceramic femoral head was utilized. Estimated Blood Loss 200 Drains No Packing No Pathology None sent Complications No immediate complications Condition Stable Disposition PACU [facility] Billing Surgery - Charge Forward: Surgery Billing
[2024-10-26] MEDS: TRANEXAMIC ACID 1,000 MG/10 ML AMPUL 1000 MG IV PUSH (09:21)
[2024-10-26] MEDS: fentaNYL CITRATE INJ (*CRX) 100 MCG/2 ML VIAL 25 MCG IV PUSH ×2 (10:48→10:52)
--- NOTE | 2024-10-26 11:43 | ADMGEN ---
This patient, Judy Martínez, was admitted to 3 [facility] Surg Room 311-01. Patient/family oriented to hospital policies and general routines including ID bracelet, bed and alarms, visiting hours, pain management, procedures, bathroom and other care routines, personal items, smoking policy, room service/diet, and visiting hours. Information on how to activate the Rapid Response Team has been discussed. Patient/Family are encouraged to report perceived risks to care and to ask questions if they do not understand what they are told or what they should do. received report from Cori.
[2024-10-26] MEDS: SENNA/DOCUSATE SODIUM TABLET 2 TAB PO ×2 (11:51→16:09)
[2024-10-26] MEDS: MULTIVITAMINS THERAPEUTIC TAB (*BKC) 1 TABLET PO (11:51)
[2024-10-26] MEDS: ASPIRIN 81 MG ENTERIC TABLET PO ×2 (11:52→16:10)
[2024-10-26] MEDS: MELOXICAM 7.5 MG TABLET 15 MG PO (11:53)
[2024-10-26] MEDS: SODIUM CHLORIDE 0.9% IV 1,000 ML 125 ML IV CONT (12:00)
[2024-10-26] MEDS: ONDANSETRON INJ 4 MG/2 ML VIAL IV PUSH (13:39)
[2024-10-26] MEDS: ceFAZolin 2 GM/D5W 50 ML 2 GM/50 ML BAG IVPB ×2 (16:10→23:23)
[2024-10-26] MEDS: oxyCODONE/ACETAMINOPHEN (*CRX) 5-325 MG TABLET 1 TABLET PO ×2 (16:28→21:38)
[2024-10-26] MEDS: MELATONIN 5 MG TABLET 10 MG PO (21:38)
[2024-10-27] VITALS: BP 151/61; PULSE 65; RESP 16; TEMP 36.3; O2SAT 97
[2024-10-27 04:00] VITALS: BP 144/64; PULSE 76; RESP 20; TEMP 36.3; O2SAT 93
[2024-10-27] MEDS: oxyCODONE/ACETAMINOPHEN (*CRX) 5-325 MG TABLET 1 TABLET PO (05:23)
[2024-10-27 06:10] LABS: Hematocrit 36.5 % (37.0-47.0); Hemoglobin 11.5 g/dL (12.0-15.0); Immature Granulocyte Percent A 0.4 % (0-0.5); Lymphocytes Absolute Auto 1.35 K/mm3 (0.9-3.2); Mean Corpuscular HGB Conc 31.5 g/dl (32-36); Mean Corpuscular Hemoglobin 26.8 pg (26-34); Mean Corpuscular Volume 85.1 fl (80-100); Nucleated Red Blood Cells Absolute Auto 0.000 K/mm3 (0.0-0.012); Nucleated Red Blood Cells Perc 0.0 % (0.0-0.2); Platelet Count Result 258 k/mm3 (150-375); Red Blood Count 4.29 M/mm3 (4.2-5.4); White Blood Count 14.1 K/mm3 (4.5-10.0)
[2024-10-27 06:50] LABS: Anion Gap 5 mmol/L (4-12); Blood Urea Nitrogen 15 mg/dL (7-17); Calcium 9.2 mg/dL (8.4-10.2); Carbon Dioxide 25 mmol/L (22-30); Chloride 106 mmol/L (98-107); Estimated CRCL calculation 71 ml/min; Estimated Glomerular Filt Rate > 60; Glucose 136 mg/dL (65-110); Potassium 4.2 mmol/L (3.4-5.0); Sodium 136 mmol/L (137-145)
[2024-10-27 08:00] VITALS: BP 124/78; PULSE 66; RESP 14; TEMP 36.1; O2SAT 99
[2024-10-27] MEDS: ASPIRIN 81 MG ENTERIC TABLET PO (08:49)
[2024-10-27] MEDS: ceFAZolin 2 GM/D5W 50 ML 2 GM/50 ML BAG IVPB (08:49)
[2024-10-27] MEDS: SENNA/DOCUSATE SODIUM TABLET 2 TAB PO (08:49)
[2024-10-27] MEDS: ATORVASTATIN 20 MG TABLET PO (08:49)
[2024-10-27] MEDS: MELOXICAM 7.5 MG TABLET 15 MG PO (08:49)
[2024-10-27] MEDS: EMPAGLIFLOZIN 25 MG TABLET BY MOUTH (08:49)
[2024-10-27] MEDS: MULTIVITAMINS THERAPEUTIC TAB (*BKC) 1 TABLET PO (08:50)
== END 2024-10-27 13:00 | disposition home or self-care (01) ==
LOC: ANHSURGERY 09:12 → ANH3MEDSUR 11:09
PROVIDERS: PCP Family Medicine; Visit Provider Orthopaedic Surgery
PROC: (CPT 27130; principal; 2024-10-26 07:30)
DX: M16.12 Unilateral primary osteoarthritis, left hip (principal); M25.752 Osteophyte, left hip; I10 Essential (primary) hypertension; E11.65 Type 2 diabetes mellitus with hyperglycemia; M17.12 Unilateral primary osteoarthritis, left knee; F43.10 Post-traumatic stress disorder, unspecified; Z79.85 Long-term (current) use of injectable non-insulin antidiabetic drugs; Z79.84 Long term (current) use of oral hypoglycemic drugs; Z79.1 Long term (current) use of non-steroidal anti-inflammatories (NSAID); Z98.890 Other specified postprocedural states; Z90.49 Acquired absence of other specified parts of digestive tract; Z85.038 Personal history of other malignant neoplasm of large intestine; Z80.1 Family history of malignant neoplasm of trachea, bronchus and lung; Z82.49 Family history of ischemic heart disease and other diseases of the circulatory system
CPT/HCPCS: 27130; 36415; 73502; 80048; 82948; 85025; 86850; 86900; 86901; 97110; 97116; 97161; 97165; 97530; 97535; J0690; A9270; C1776; J0166; J1100; J1171; J1885; J2003; J2250; J2270; J2405; J2704; J2795; J3010; J7030; J7120; J7512

== ENCOUNTER 2024-11-22 11:44 | Outpatient (CLI) | payer OTHER, MEDICARE, SELFPAY ==
--- OUTSIDE RECORDS SUMMARY | 2024-11-22 11:48 | XMS_ITS | Clinical Summary ---
Author Organization [facility] Address [address] [place] [address] Care Team Providers Care Intrusion Analyst Name Role Phone Daron Sultana MD Primary Care Provider [phone] Source Comments [employer] [facility],non-owned Affiliates and Associated Physician Practices is amultiple site organization consisting of ambulatory clinics and hospital sitesin [place], [place], [place] and [place]. This disclosure is being madepursuant to the Care Everywhere program and may not contain all information available regarding this patient. 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 Gender Identity Not on file Sexual Orientation [...] patient's age to complete this topic Insurance [facility] [place] MA[place]ED MEDICARE ADV * Guarantor: GEOVANNA VIERA Account Type Relation to Patient Date of Phone Billing Address Personal/Family [address] [place] [address] [facility] [place] MANAGED MEDICARE ADV * Guarantor: GEOVANNA VIERA Account Type Relation to Patient Date of Phone Billing Address Personal/Family [address] [place] [address] [facility] [place] MANAGED MEDICARE ADV * Guarantor: GEOVANNA VIERA Account Type Relation to Patient Date of Phone Billing Address Personal/Family [address] [place] [address] [facility] [place] MANAGED MEDICARE ADV * Guarantor: GEOVANNA VIERA Account Type Relation to Patient Date of Phone Billing Address Personal/Family [address] [place] [address] [facility] [place] MANAGED MEDICARE ADV * Guarantor: GEOVANNA VIERA Account Type Relation to Patient Date of Phone Billing Address Personal/Family [address] [place] [address] [facility] MA[place]ED MEDICARE ADV * Guarantor: GEOVANNA VIERA Account Type Relation to Patient Date of Phone Billing Address Personal/Family [address] [place] [address] [facility] [place] MA[place]ED MEDICARE ADV Care Teams Intrusion Analyst Relationship Specialty Start Date End Date Daron Sultana MD [address] [place] [address] PCP - General Family Medicine 08/28/14
--- OUTSIDE RECORDS SUMMARY | 2024-11-22 11:48 | XMS_ITS | Clinical Summary ---
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 Gender Identity Not on file Sexual Orientation Not on file Obstetrics History Last Filed Vital Signs Vital Sign Reading Time Taken Comments Blood Pressure 123/70 05/05/2024 8:00 AM WEBBING SEAMER POUND NET Pulse 98 05/05/2024 8:00 AM WEBBING SEAMER POUND NET Temperature 36.9 C (98.4 F) 05/05/2024 5:39 AM WEBBING SEAMER POUND NET Respiratory Rate 16 05/05/2024 8:00 AM WEBBING SEAMER POUND NET Oxygen Saturation 95% 05/05/2024 8:00 AM WEBBING SEAMER POUND NET Inhaled Oxygen Concentration - - Weight 75.8 kg (167 lb) 05/05/2024 4:36 AM WEBBING SEAMER POUND NET Height 170.2 cm (5' 7) 05/05/2024 4:36 AM WEBBING SEAMER POUND NET Body Mass Index 26.16 05/05/2024 4:36 AM WEBBING SEAMER POUND NET Plan of Treatment Health Maintenance Due Date Last Done Comments Colon Cancer Screening-Colonoscopy 1955 Depression Screening 1956 Fall Risk Assessment 1955 Hepatitis C Screening 1955 Osteoporosis Screening-Bone Density Scan 1956 DTaP/Tdap/Td Vaccine (1 - Tdap) 11/17/1967 Hepatitis B Screening 1974 Pneumococcal vaccine 65+ (1 of 1 - PCV) 2006 Zoster Vaccine (1 of 2) 2006 Well Visit 65+ 2021 Influenza Vaccine (#1) 2024 , 01/25/2018, 01/02/2016 Breast Cancer Screening-Mammogram 01/11/2025 [...] compared to prior imaging studies performed at [facility] on 12/29/2020 and 12/27/2022, and at [facility] on 11/24/2018. There are scattered areas [...] compared to prior imaging studies performed at [facility] on 12/29/2020 and 12/27/2022, and at [facility] on 11/24/2018. There are scattered areas of fibroglandular density. There is no suspicious abnormality in either breast. Impression: There is no mammographic evidence of malignancy. Annual screening mammography is recommended. OVERALL FINAL ASSESSMENT: BI-RADS CATEGORY 1: Negative. us Self Screening Mammogram IMG MAMMO PROCEDURES Fi nal Result from Last 3 Months or Most Recently Relevant to Health Maintenance Insurance [facility] HMO/POS [facility] HMO/PPO Address: [address] [address] PENDING SALE TO [facility] ACCESS [facility] CHOICE PLUS [facility] H[facility]/PPO Address: [address] [address] [place] [address] [facility] MEDICARE ADVANTAGE [facility] Address: [address] [address] [place] [address] [facility] HMO/PPO Address: [address] [address] [place] [address] [place] [address] [facility] HMO/PPO Address: [facility] [address] [place] [address] [facility] MEDICARE ADVANTAGE Care Teams Sustainability Manager Relationship Specialty Start Date End Date Daron Sultana MD PCP - General 07/28/17
--- OUTSIDE RECORDS SUMMARY | 2024-11-22 11:48 | XMS_ITS | Clinical Summary ---
Author Organization 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 Gender Identity Not on file Sexual Orientation Not on file Plan of Treatment Health Maintenance Due Date Last Done Comments Hepatitis C Virus (HCV) Screening 1955 TdaP Immunization 1955 Cologuard 2001 Colonoscopy 2001 Colorectal Cancer Screening 2001 Immunochemical Fecal Occult Blood 2001 Pneumococcal Immunization (5 0+ years) (1 of 1 - PCV) 2006 Zoster Immunization (1 of 2) 2006 SARS-COV-2 Immunization ( - season) 2023 Influenza Immunization (#1) 12/13/202401/13, 01/25/2018, 01/02/2016 Respiratory Syncytial Virus (RSV) Immunization (Adult) (1 - 1-dose 75+ series) 11/17/2031 Hepatitis B Immunization Aged Out No longer eligible based on patient's age to complete this topic Human Papillomavirus (HPV) Immunization Aged Out No longer eligible b ased on patient's age to complete this topic Meningococcal Immunization (ACWY) Aged Out No longer eligible b ased on patient's age to complete this topic Rotavirus Immunization Aged Out No lo nger eligible based on patient's age to complete this topic
--- OUTSIDE RECORDS SUMMARY | 2024-11-22 11:48 | XMS_ITS | Clinical Summary ---
Author Organization [facility] Robert valentino Lo Address [address] [place] [address] Care Team Providers Care Implementation Technician Name Role Phone Daron Sultana MD Primary Care Provider [phone] Allergies No known active allergies Medications tirzepatide (MOUNJARO SUBCUT) Inject by subcutaneous injection. Active dapagliflozin propanediol (FARXIGA ORAL) Take by mouth. Active lisinopriL (PRINIVIL) 2.5 mg tablet Take 1 Tablet by mouth daily. Active Active Problems No known active problems Encounters Date Type Department Care Team Description 11/17/2024 External Device Data [facility] ABSTRACTION Provider, Abstract 2024 External Device Data [facility] ABSTRACTION Provider, Abstract 10/27/2024 External Device Data [facility] ABSTRACTION Provider, Abstract 10/27/2024 External Device Data [facility] ABSTRACTION Provider, Abstract 10/26/2024 External Device Data [facility] ABSTRACTION Provider, Abstract 10/14/2024 9:30 AM CDT Office Visit [facility] - [facility] [address] [place] [address] Thomas Wilkes MD Malignant neoplasm of colon, unspecified part of colon (CMS/HCC) (Primary Dx) 10/12/2024 Orders Only [facility] - [facility] [address] [place] [address] Thomas Wilkes MD 09/10/2024 Orders Only [facility] - [facility] [address] [place] [address] Thomas Wilkes MD 09/07/2024 Orders Only [facility] - [facility] [address] [place] [address] Thomas Wilkes MD 09/01/2024 External Device Data [...] st Contact Info) Description 02/15/2025 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 [address] PCP - General Family Practice 03/03/24
[2024-11-22 12:16] LABS: Hematocrit 38.1 % (37.0-47.0); Hemoglobin 11.9 g/dL (12.0-15.0)
[2024-11-22 12:37] LABS: Iron 58 ug/dL (37-170)
[2024-11-22 12:47] LABS: Percent Iron Saturation 21 % (20-50)
[2024-11-22 13:22] LABS: Ferritin 81.60 ng/mL (11.1-264)
[2024-11-22 17:14] LABS: MALB Creatinine Ratio 12.3 mg/g (0-30)
== END 2024-11-22 11:45 | disposition home or self-care (01) ==
PROVIDERS: PCP Family Medicine; Visit Provider Family Medicine
DX: D64.9 Anemia, unspecified (principal); E11.3293 Type 2 diabetes mellitus with mild nonproliferative diabetic retinopathy without macular edema, bilateral
CPT/HCPCS: 36415; 82043; 82728; 83540; 83550; 85014; 85018

== ENCOUNTER 2024-12-14 01:00 | Day surgery (SDC) | payer OTHER, MEDICARE, SELFPAY ==
[2024-11-30 09:18] VITALS: BMI 26.3
--- OUTSIDE RECORDS SUMMARY | 2024-12-14 01:03 | XMS_ITS | Clinical Summary ---
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
--- OUTSIDE RECORDS SUMMARY | 2024-12-14 01:04 | XMS_ITS | Clinical Summary ---
Author Organization [facility] Address [address] [place] [address] Care Team Providers Care Furniture Sales Consultant Name Role Phone Daron Sultana MD Primary Care Provider [phone] Source Comments [facility],non-owned Affiliates and Associated Physician Practices is amultiple site organization consisting of ambulatory clinics and hospital sitesin [place], [place], [place] and [place]. This disclosure is being madepursuant to the Care Everywhere program and may not contain all information available regarding this patient. Last updated 18.[facility] Allergies Active Allergy Reactions Criticality Noted Date Comments Lisinopril Angioedema High 10/26/2024 lower lip Medications * Be aware that medications may [...] or Wheezing. 1 Inhaler 1 5 Active methocarbamol (Robaxin) 500 MG tablet Take 1 (one) tablet by mouth every 6 hours as needed for Muscle Spasms 15 tablet Active Encounters Date Type Department Care Team Description 12/04/2024 12:32 PM CDT - 12/04/2024 2:35 PM CDT Emergency ER at [facility] [address] [place] [id number] RLQ abdominal pain Discharge Disposition: Home or Self Care 12/04/2024 Travel from Last 3 Months Social History Tobacco Use Types Packs/Day Years Used Date Smoking Tobacco: Never Assessed Comments Unknown Sex and Gender Information Value Date Recorded Sex Assigned at Not on file 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 Gender Identity Not on file Sexual Orientation Not on file Last Filed Vital Signs Vital Sign Reading Time Taken Comments Blood Pressure 148/72 12/04/2024 1:01 PM CDT Pulse 67 12/04/2024 1:02 PM CDT Temperature 36.7 C (98 F) 12/04/2024 11:18 AM CDT Respiratory Rate 18 12/04/2024 1:01 PM CDT Oxygen Saturation 96% 12/04/2024 1:02 PM CDT Inhaled Oxygen Concentration - - Weight 73.9 kg (163 lb) 12/04/2024 11:18 AM CDT Height 167.6 cm (5' 6) 12/04/2024 11:18 AM CDT Body Mass Index 26.31 12/04/2024 11:18 AM CDT Plan of Treatment Health Maintenance Due Date Last Done Comments BONE DENSITY TESTING 1955 COLOGUARD (AGES 45-75) - COLON CA SCREENING 1956 COLON MONITORING 1956 COLONOSCOPY - COLON CA SCREENING 1956 CT COLONOGRAPHY - COLON CA SCREENING 1955 Colorectal Cancer Screening 1955 FIT - COLON CA SCREENING 1956 FLEX SIG - COLON CA SCREENING 1956 LIPID TESTING 1956 HEPATITIS C SCREENING 11/12/1974 DTAP/TDAP/TD VACCINES (1 - Tdap) 11/17/1975 PNEUMOCOCCAL VACCINE 50+ (1 of 1 - PCV) 2006 ZOSTER VACCINE (1 of 2) 2006 DEPRESSION SCREENING 04/14/2024 MEDICARE AWV CALENDAR YEAR 2024 COVID-19 VACCINE ( season) 2024 01/27/2024, 03/14/2021, 06/07/2020, Additional history exists INFLUENZA VACCINE (#1) 2024 , 02/02/2020, 01/25/2018, Additional history exists MAMMOGRAM 01/11/2026 01/12/2024, 12/15, 12/27/2022, Additional history exists Respiratory Syncytial Virus (RSV) Vaccine Pt: or [...] complete this topic MENINGOCOCCAL (Group B) VACCINE SHARED DECISION-MAKING Aged Out No longer eligible based on patient's age to complete this topic MENINGOCOCCAL GROUPS A/C/Y/W VACCINE Aged Out No longer eligible based on patient's age to complete this topic Procedures Procedure Name Priority Date/Time Associated Diagnosis Comments CT ABDOMEN PELVIS W CONTRAST STAT 12/04/2024 1:30 PM CDT RLQ abdominal pain URINALYSIS REFLEX MICROSCOPIC REFLEX CULTURE STAT 12/04/2024 12:47 PM CDT LIPASE BLOOD STAT 12/04/2024 12:44 PM CDT COMPREHENSIVE METABOLIC PANEL STAT 12/04/2024 12:44 PM CDT CBC W AUTO DIFFERENTIAL STAT 12/04/2024 12:44 PM CDT from Last 3 Months Results * CT ABDOMEN PELVIS W CONTRAST (12/04/2024 1:30 PM CDT) Anatomical Region Laterality Modality Abdomen, Pelvis Computed Tomogra phy 12/04/2024 1:34 PM CDT Impressions 12/04/2024 1:39 PM CDT IMPRESSION: 1. No evidence of acute process. > Interpreting Provider: Sharri Glaser MD on 12/04/2024 1:39 PM Narrative 12/04/2024 1:39 PM CDT PROCEDURE: CT ABDOMEN PELVIS W CONTRAST DATE/TIME OF EXAM: 12/04/2024 1:31 PM CLINICAL INFORMATION: None relevant/not provided if blank. Indication: R10.31: RLQ abdominal pain Additional History: COMPARISON: None. TECHNIQUE: CT of the abdomen and pelvis was performed following intravenous contrast utilizing standard protocol. CT dose reduction technique was used, including Automated Exposure Control. CONTRAST: IOPAMIDOL 76 % IV SOLN:95 mL FINDINGS: LUNG BASES: Within normal limits LIVER: Within normal limits. GALLBLADDER: Contracted. BILE DUCTS: Nondilated. PANCREAS: Within normal limits. SPLEEN: Within normal limits. ADRENALS: Within normal limits. KIDNEYS/URETERS: Within normal limits. PELVIC ORGANS: Partially obscured by streak artifact from a left hip prosthesis. BOWEL: Findings of prior bowel resection and reanastomosis. No obstruction or inflammation. PERITONEUM/RETROPERITONEUM: No ascites, free air or enlarged mesenteric/retroperitoneal lymph nodes. VESSELS: Within normal limits. ABDOMINAL WALL: Within normal limits. BONES: Left hip prosthesis in expected position. Procedure Note Sharri Glaser MD - 12/04/2024 PROCEDURE: CT ABDOMEN PELVIS W CONTRAST DATE/TIME OF EXAM: 12/04/2024 1:31 PM CLINICAL INFORMATION: None relevant/not provided if blank. Indication: R10.31: RLQ abdominal pain Additional History: COMPARISON: None. TECHNIQUE: CT of the abdomen and pelvis was performed following intravenouscontrast utilizing standard protocol. CT dose reduction technique was used, including Automated ExposureControl. CONTRAST: IOPAMIDOL 76 % IV SOLN:95 mL FINDINGS: LUNG BASES: Within normal limits LIVER: Within normal limits. GALLBLADDER: Contracted. BILE DUCTS: Nondilated. PANCREAS: Within normal limits. SPLEEN: Within normal limits. ADRENALS: Within normal limits. KIDNEYS/URETERS: Within normal limits. PELVIC ORGANS: Partially obscured by streak artifact from a left hip prosthesis. BOWEL: Findings of prior bowel resection and reanastomosis. Noobstruction or inflammation. PERITONEUM/RETROPERITONEUM: No ascites, free air or enlarged mesenteric/retroperitoneal lymph nodes. VESSELS: Within normal limits. ABDOMINAL WALL: Within normal limits. BONES: Left hip prosthesis in expected position. IMPRESSION: 1. No evidence of acute process. > Interpreting Provider: Sharri Glaser MD on 12/04/2024 1:39 PM us George Soriano PA CT ORDERABLES Final Resu lt * (ABNORMAL) URINALYSIS REFLEX MICROSCOPIC REFLEX CULTURE (12/04/2024 12:47 PM CDT) Color UA Yellow Yellow, Straw 12/04/2024 12:59 PM CDT [facility] Clarity UA Clear Clear 12/04/2024 12:59 PM CDT [facility] Glucose UA 4+(A) Normal 12/04/2024 12:59 PM CDT [facility] Bilirubin UA Negative Negative 12/04/2024 12:59 PM CDT [facility] Ketone UA Negative Negative 12/04/2024 12:59 PM CDT [facility] Specific [place] UA 1.035(H) 1.005 - 1.030 12/04/2024 12:59 PM CDT [facility] Blood UA 1+(A) Negative 12/04/2024 12:59 PM CDT [facility] pH UA 5.5 5.0 - 8.0 12/04/2024 12:59 PM CDT [facility] Protein UA Negative Negative 12/04/2024 12:59 PM CDT [facility] Urobilinogen UA Normal Normal mg/dL 12/04/2024 12:59 PM CDT [facility] Nitrite UA Negative Negative 12/04/2024 12:59 PM CDT [facility] Leukocyte Esterase UA Negative Negative 12/04/2024 12:59 PM CDT [facility] RBC UA 3-5 0 - 5 # /hpf 12/04/2024 12:59 PM CDT [facility] WBC UA 0-5 0 - 5 # /hpf 12/04/2024 12:59 PM CDT [facility] Bacteria UA None Seen None Seen 12/04/2024 12:59 PM CDT [facility] Squamous Epithelial Cells 0-2 0 - 5 /hpf 12/04/2024 12:59 PM CDT [facility] Mucus UA 1+ /LPF 12/04/2024 12:59 PM CDT [facility] Reflex Status Culture not indicated 12/04/2024 12:59 PM CDT [facility] Urine URINE SPECIMEN OBTAINED BY CLEAN CATCH PROCEDURE / Unknown Collection / Unknown 12/04/2024 12:47 PM CDT 12/04/2024 12:50 PM CDT Narrative [facility] - 12/04/2024 12:59 PM CDT us George [facility] - URINALYSIS ORDERABLE S Final Result [facility] [address] [place], [place] [id number] * (ABNORMAL) CBC W AUTO DIFFERENTIAL (12/04/2024 12:44 PM CDT) [facility] WBC 7.0 4.0 - 10.7 x10E9/L 12/04/2024 12:51 PM CDT [facility] RBC Count 4.53 3.90 - 5.20 x10E12/L 12/04/2024 12:51 PM CDT [facility] Hemoglobin 12.0 11.9 - 15.8 g/dL 12/04/2024 12:51 PM CDT [facility] Hematocrit 38.3 34.8 - 46.1 % 12/04/2024 12:51 PM CDT [facility] MCV 84.5 80.0 - 98.0 fL 12/04/2024 12:51 PM CDT [facility] MCH 26.5(L) 26.7 - 33.6 pg 12/04/2024 12:51 PM CDT [facility] MCHC 31.3(L) 31.7 - 36.3 g/dL 12/04/2024 12:51 PM CDT [facility] RDW-CV 13.4 11.3 - 14.8 % 12/04/2024 12:51 PM CDT [facility] Platelet Count 318 150 - 420 x10E9/L 12/04/2024 12:51 PM CDT [facility] MPV 8.8 7.8 - 11.4 fL 12/04/2024 12:51 PM CDT [facility] Neutrophil % 70.2 41.0 - 74.0 % 12/04/2024 12:51 PM CDT [facility] Lymphocyte % 20.7 17.0 - 47.0 % 12/04/2024 12:51 PM CDT [facility] Monocyte % 6.9 3.0 - 11.0 % 12/04/2024 12:51 PM CDT [facility] Eosinophil % 1.7 0.0 - 7.0 % 12/04/2024 12:51 PM CDT [facility] Basophil % 0.4 0.0 - 1.6 % 12/04/2024 12:51 PM CDT [facility] Immature Granulocytes % 0.1 0.0 - 1.0 % 12/04/2024 12:51 PM CDT [facility] Neutrophil Absolute 4.91 1.60 - 7.50 x10E9/L 12/04/2024 12:51 PM CDT [facility] Lymphocyte Absolute 1.45 1.00 - 4.40 x10E9/L 12/04/2024 12:51 PM CDT [facility] Monocyte Absolute 0.48 0.15 - 1.00 x10E9/L 12/04/2024 12:51 PM CDT [facility] Eosinophil Absolute 0.12 0.00 - 0.60 x10E9/L 12/04/2024 12:51 PM CDT [facility] Basophil Absolute 0.03 0.00 - 0.13 x10E9/L 12/04/2024 12:51 PM CDT [facility] Blood BLOOD SPECIMEN / Unknown Venipuncture / Unknown 12/04/2024 12:44 PM CDT 12/04/2024 12:46 PM CDT us George [facility] - HEMATOLOGY ORDERABLE S Final Result [facility] [address] [place], [place] [id number] * (ABNORMAL) COMPREHENSIVE METABOLIC PANEL (12/04/2024 12:44 PM CDT) [facility] Glucose 101(H) 70 - 99 mg/dL 12/04/2024 1:04 PM CDT [facility] Sodium 140 136 - 145 mmol/L 12/04/2024 1:04 PM CDT [facility] Potassium 4.1 3.5 - 5.1 mmol/L 12/04/2024 1:04 PM CDT [facility] Chloride 106 98 - 107 mmol/L 12/04/2024 1:04 PM CDT [facility] CO2 25 22 - 29 mmol/L 12/04/2024 1:04 PM CDT [facility] Calcium 9.4 8.4 - 10.4 mg/dL 12/04/2024 1:04 PM CDT [facility] Anion Gap 9 6 - 16 mmol/L 12/04/2024 1:04 PM CDT [facility] BUN 15 7 - 26 mg/dL 12/04/2024 1:04 PM CDT [facility] Creatinine 0.85 0.57 - 1.11 mg/dL 12/04/2024 1:04 PM [facility] Alkaline Phosphatase 116 40 - 150 U/L 12/04/2024 1:04 PM CDT [facility] ALT 6 6 - 57 U/L 12/04/2024 1:04 PM T [facility] AST 17 10 - 48 U/L 12/04/2024 1:04 PM [facility] Protein Total 7.3 6.4 - 8.3 gm/dL 12/04/2024 1:04 PM [facility] Albumin 3.8 3.1 - 4.5 gm/dL 12/04/2024 1:04 PM T [facility] Bilirubin Total 0.3 0.2 - 1.2 mg/dL 12/04/2024 1:04 PM [facility] eGFR by CKD-EPI 75(L) >=90 mL/min/1.7 3 m2 12/04/2024 1:04 PM T [facility] Comment:Estimated Glomerular Filtration Rate (eGFR) calculated using the CKD-EPI Creatinine Equation (2020), per the National Kidney Foundation and [place] Society of Nephrology recommendations. Blood BLOOD SPECIMEN / Unknown Venipuncture / Unknown 12/04/2024 12:44 PM CDT 12/04/2024 12:46 PM CDT us George [facility] - CHEMISTRY ORDERABLES Final Result [facility] [address] [place], [place] [id number] * LIPASE BLOOD (12/04/2024 12:44 PM CDT) Lipase 36 <60 U/L 12/04/2024 1:04 PM CDT [facility] Blood BLOOD SPECIMEN / Unknown Venipuncture / Unknown 12/04/2024 12:44 PM CDT 12/04/2024 12:46 PM CDT [facility] - CHEMISTRY ORDERABLES Final Result Performing Organization Address City/State/[facility] Co de Phone Number [facility] [address] [place] [address] from Last 3 Months Insurance [facility] Address: [address] [address] [place] [address] UHC MANAGED MEDICARE ADV * Guarantor: GEOVANNA VIERA Account Type Relation to Patient Date of Phone Billing Address Personal/Family [address] [place] [address] [facility] [employer] MANAGED MEDICARE ADV * Guarantor: GEOVANNA VIERA Account Type Relation to Patient Date of Phone Billing Address Personal/Family [address] [place] [address] [facility] [employer]HC MANAGED MEDICARE ADV * Guarantor: GEOVANNA VIERA Account Type Relation to Patient Date of Phone Billing Address Personal/Family [address] [place] [address] [facility] MANAGED MEDICARE ADV * Guarantor: GEOVANNA VIERA Account Type Relation to Patient Date of Phone Billing Address Personal/Family [address] [place] [address] [facility] [employer]HC MANAGED MEDICARE ADV * Guarantor: GEOVANNA VIERA Account Type Relation to Patient Date of Phone Billing Address Personal/Family [address] [place] [address] [facility] [employer] MANAGED MEDICARE ADV * Guarantor: GEOVANNA VIERA Account Type Relation to Patient Date of Phone Billing Address Personal/Family [address] [place] [phone] [facility] [employer] MANAGED MEDICARE ADV Care Teams Furniture Sales Consultant Relationship Specialty Start Date End Date Daron Sultana MD [address] [place] [address] PCP - General Family Medicine 08/28/14
--- OUTSIDE RECORDS SUMMARY | 2024-12-14 01:04 | XMS_ITS | Clinical Summary ---
Author Organization [facility] Address [address] [facility] [address] [place] [address] Care Team Providers Care Keypuncher Name Role Phone Daron Sultana MD Primary Care Provider [phone] Allergies No known active allergies Medications diazePAM [...] on file Legal Sex Female 9:03 PM MANAGER AEROSPACE Gender Identity Not on file Sexual Orientation Not on file Obstetrics History Last Filed Vital Signs Vital Sign Reading Time Taken Comments Blood Pressure 123/70 05/05/2024 8:00 AM MANAGER AEROSPACE Pulse 98 05/05/2024 8:00 AM MANAGER AEROSPACE Temperature 36.9 C (98.4 F) 05/05/2024 5:39 AM MANAGER AEROSPACE Respiratory Rate 16 05/05/2024 8:00 AM MANAGER AEROSPACE Oxygen Saturation 95% 05/05/2024 8:00 AM MANAGER AEROSPACE Inhaled Oxygen Concentration - - Weight 75.8 kg (167 lb) 05/05/2024 4:36 AM MANAGER AEROSPACE Height 170.2 cm (5' 7) 05/05/2024 4:36 AM MANAGER AEROSPACE Body Mass Index 26.16 05/05/2024 4:36 AM MANAGER AEROSPACE Plan of Treatment Health Maintenance Due Date [...] to prior imaging studies performed at [facility] on 12/29/2020 and 12/27/2022, and at [facility] on 11/24/2018. There are scattered [...] to prior imaging studies performed at [facility] on 12/29/2020 and 12/27/2022, and at [facility] on 11/24/2018. There are scattered areas of fibroglandular density. There is no suspicious abnormality in either breast. Impression: There is no mammographic evidence of malignancy. Annual screening mammography is recommended. OVERALL FINAL ASSESSMENT: BI-RADS CATEGORY 1: Negative. us Self Screening Mammogram IMG MAMMO PROCEDURES Fi nal Result from Last 3 Months or Most Recently Relevant to Health Maintenance Insurance [facility] HMO/POS [facility] ACCESS [facility] CHOICE PLUS [facility] MEDICARE ADVANTAGE [facility] [place] [address] [address] [place] [address] [facility] MEDICARE ADVANTAGE Care Teams Keypuncher Relationship Specialty Start Date End Date Daron Sultana MD PCP - General 07/28/17
--- OUTSIDE RECORDS SUMMARY | 2024-12-14 01:04 | XMS_ITS | Clinical Summary ---
Author Organization [facility] Address [address] [place] [address] Care Team Providers Care Poultry Trimmer Name Role Phone Daron Sultana MD Primary Care Provider [phone] Allergies No known active allergies Medications tirzepatide [...] Abstract 10/14/2024 9:30 AM CDT Office Visit [facility] Oncology and Hematology - Ashok [address] [place] [address] Thomas Wilkes MD Malignant neoplasm of colon, unspecified part of colon (CMS/HCC) (Primary Dx) 10/12/2024 Orders Only [facility] Oncology and Hematology Ashok [address] [place] [address] Thomas Wilkes MD from Last 3 Months [...] st Contact Info) Description 02/15/2025 11:30 AM 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 Office Visit [facility] Oncology and Hematology - [place] [address] [place] [address] [facility] [address] [place] [address] Thomas Wilkes MD [address] [facility] [address] [place] [address] Health Maintenance Due Date Last [...] METABOLIC PANEL Routine 10/08/2024 7:51 AM CDT from Last 3 Months Results * COMPREHENSIVE METABOLIC PANEL (10/08/2024 7:51 AM CDT) Blood us Thomas Wilkes MD CHEMISTRY ORDERABLES Final Resu lt from Last 3 Months Insurance [facility] [id number] [facility] Address: [facility] [id number] [address] [facility] Address: [address] [address] [place] [address] Care Teams Poultry Trimmer Relationship Specialty Start Date End Date Daron Sultana [place] [address] [place] [address] PCP - General Family Practice 03/03/24
[2024-12-14 11:12] VITALS: BP 138/77; PULSE 88; RESP 16; TEMP 36.4; O2SAT 100
--- NOTE | 2024-12-14 11:18 | WPDANESEPPF ---
Anes - Initial Pre Proc Eval Procedure: Operation Date: 12/14/24 11:30 Proposed Procedures p Diagnostic Colonoscopy - Dany Godinez MD Date/Time: 12/14/24 11:18 Surgeon: Dany Godinez MD Pre Op Diagnosis: Malignant neoplasm of cecum Patient Data Age: 69 Gender: F Height: 1.68 m Weight: 71.2 kg Last Vital Signs Temp 97.6 F 12/14/24 11:12 Pulse 88 12/14/24 11:12 Resp 16 12/14/24 11:12 BP 138/77 12/14/24 11:12 Pulse Ox 100 12/14/24 11:12 O2 Del Method Room Air 12/14/24 11:12 Allergies Allergy/AdvReac Type Severity Reaction Status Date / Time lisinopril Allergy Severe angioedema Verified 12/07/24 14:17 Home Medications ?Medication ?Instructions ?Recorded ?Confirmed ?Type lancets (Coaguchek Lancets) #400 ea 12/25/22 12/07/24 Rx tirzepatide 10 mg/0.5 mL 10 mg (0.5 mL) subcut WEEKLY #6 mL 08/19/24 12/14/24 Rx subcutaneous pen injector (Mounjaro) dapagliflozin propanediol 10 mg 10 mg PO DAILY #90 tabs 09/27/24 12/14/24 Rx tablet (Farxiga) melatonin 10 mg capsule 10 mg PO HS 09/29/24 12/14/24 History multivitamin (Daily Multi-Vitamin 1 tablet PO DAILY 09/29/24 12/14/24 History tablet) meloxicam 15 mg tablet 15 mg PO DAILY #30 tabs 10/24/24 12/14/24 Rx methocarbamol 500 mg tablet 500 mg PO QID PRN spasms 12/07/24 12/14/24 History Patient hx anesthesia problems: none Family hx anesthesia problems: none Results Review: All pre-operative results and documents have been reviewed as part of the pre-operative evaluation. [facility] Past Medical History Medical History Allergic reaction Angioedema Carcinoma in situ of cecum Mass of colon Colon cancer screening BMI 25.0-25.9,adult Osteoarthritis of left knee PTSD (post-traumatic stress disorder) COVID-19 Right foot pain Constipation BMI 29.0-29.9,adult Essential (primary) hypertension Type 2 diabetes mellitus with hyperglycemia Surgical History Surgical History H/O right hemicolectomy Dr. Jcarlos Hernández 10/15/23 History of hemicolectomy robotic lap right hemicolectomy 10/15/23 Dr Jcarlos Hernández History of bilateral salpingo-oophorectomy History of hysterectomy Family History Family History Mother Cancer Tobacco abuse Acute myocardial infarction Heart disease Hypertension Father Family history of heart disease in male family member before age 55 Lung cancer Tobacco abuse Sibling No problems noted. Social History Social History Smoking status: Never smoker Second hand tobacco smoke exposure: Yes Alcohol intake: current Drinks per week: 2 Substance use: never Substance use type: does not use Do You Feel Safe in your Home?: Yes Lack of Transportation: No Lack of Food: Never True Current Housing: I Have Housing Concerned About Future Housing: No Difficulty Paying Gas/Electric Bills: No Difficulty Paying for Meds: No Currently Unemployed: No Education: Bachelor's Degree Difficulty w/ Childcare or Family Care: No Living arrangements: with family Additional living arrangements comments: SON Occupation/Education: retired 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 Informed Consent: The patient's anesthetic plan and its attendant risks and benefits were discussed with the patient/family/POA. Questions were solicited and answers provided to the satisfaction of the patient/family/POA.
[2024-12-14] MEDS: LACTATED RINGERS 1,000 ML 150 ML IV CONT (11:27)
--- NOTE | 2024-12-14 11:51 | PM.HPGS ---
History of Present Illness History of Present Illness Consent: Risks, benefits, and alternatives have been discussed and questions answered. Patient agrees to proceed with procedure. Chief complaint: Malignant neoplasm of cecum Narrative: Judy Martínez is a 69 year old female with colon cancer s/p surgery 2023 Review of Systems Review of Systems: All systems reviewed & are unremarkable except as noted in HPI and below PMFSH Past Medical History Medical History (Updated 12/14/24 @ 11:54 by Dany Godinez MD) History of colon cancer Allergic reaction Angioedema Carcinoma in situ of cecum Mass of colon Colon cancer screening BMI 25.0-25.9,adult Osteoarthritis of left knee PTSD (post-traumatic stress disorder) COVID-19 Right foot pain Constipation BMI 29.0-29.9,adult Essential (primary) hypertension Type 2 diabetes mellitus with hyperglycemia Surgical History Surgical History H/O right hemicolectomy Dr. Jcarlos Hernández 10/15/23 History of hemicolectomy robotic lap right hemicolectomy 10/15/23 Dr Jcarlos Hernández History of bilateral salpingo-oophorectomy History of hysterectomy Family History Family History Mother Cancer Tobacco abuse Acute myocardial infarction Heart disease Hypertension Father Family history of heart disease in male family member before age 55 Lung cancer Tobacco abuse Sibling No problems noted. Social History Social History Smoking status: Never smoker Second hand tobacco smoke exposure: Yes Alcohol intake: current Drinks per week: 2 Substance use: never Substance use type: does not use Do You Feel Safe in your Home?: Yes Lack of Transportation: No Lack of Food: Never True Current Housing: I Have Housing Concerned About Future Housing: No Difficulty Paying Gas/Electric Bills: No Difficulty Paying for Meds: No Currently Unemployed: No Education: Bachelor's Degree Difficulty w/ Childcare or Family Care: No Living arrangements: with family Additional living arrangements comments: SON Occupation/Education: retired 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[place] Gender identity (if verbalized by the patient): Female Spiritual care concerns: No Meds Home Medications and Allergies Home Medications ?Medication ?Instructions ?Recorded ?Confirmed ?Type lancets (Coaguchek Lancets) #400 ea 12/25/22 12/07/24 Rx tirzepatide 10 mg/0.5 mL 10 mg (0.5 mL) subcut WEEKLY #6 mL 08/19/24 12/14/24 Rx subcutaneous pen injector (Mounjaro) dapagliflozin propanediol 10 mg 10 mg PO DAILY #90 tabs 09/27/24 12/14/24 Rx tablet (Farxiga) melatonin 10 mg capsule 10 mg PO HS 09/29/24 12/14/24 History multivitamin (Daily Multi-Vitamin 1 tablet PO DAILY 09/29/24 12/14/24 History tablet) meloxicam 15 mg tablet 15 mg PO DAILY #30 tabs 10/24/24 12/14/24 Rx methocarbamol 500 mg tablet 500 mg PO QID PRN spasms 12/07/24 12/14/24 History Allergies Allergy/AdvReac Type Severity Reaction Status Date / Time lisinopril Allergy Severe angioedema Verified 12/07/24 14:17 Vital Signs Vital Signs - 24 hr 12/14/24 11:12 Temperature 97.6 F Pulse Rate 88 Respiratory Rate 16 Blood Pressure 138/77 Pulse Oximetry 100 Oxygen Delivery Room Air Exam Const: General: comfortable and no acute distress HENMT: Face/Nose/Sinus: Normal nares present Eyes: General: appearance normal, both eyes and all related structures Neck: Neck: no JVD Resp: Auscultation: clear to auscultation bilaterally Cardio: Rate: regular rate Rhythm: regular rhythm GI: Inspection: non-distended GI Palp: Yes Soft to palpation Skin: General skin exam: normal color Neuro: Speech: normal speech Extrem: General: normal to inspection Psych: Mental Status: mental status grossly normal Assessment and Plan Assessment and plan (1) History of colon cancer: Code(s): Z85.038 - Personal history of other malignant neoplasm of large intestine Status: Acute Assessment and Plan: colonoscopy
[2024-12-14 12:08] VITALS: BP 121/61; PULSE 85; RESP 18; O2SAT 100
[2024-12-14 12:18] VITALS: BP 126/68; PULSE 83; RESP 26; O2SAT 100
[2024-12-14 12:28] VITALS: BP 143/68; PULSE 82; RESP 16; O2SAT 100
== END 2024-12-14 12:44 | disposition home or self-care (01) ==
PROVIDERS: PCP Family Medicine; Visit Provider Internal Medicine Gastroenterology
PROC: 0DJD8ZZ Inspection of Lower Intestinal Tract, Via Natural or Artificial Opening Endoscopic (ICD-10-PCS; CPT 45378; principal; 2024-12-14 11:30)
DX: Z08 Encounter for follow-up examination after completed treatment for malignant neoplasm (principal); K64.8 Other hemorrhoids; I10 Essential (primary) hypertension; E11.65 Type 2 diabetes mellitus with hyperglycemia; M17.12 Unilateral primary osteoarthritis, left knee; F43.10 Post-traumatic stress disorder, unspecified; Z79.85 Long-term (current) use of injectable non-insulin antidiabetic drugs; Z79.84 Long term (current) use of oral hypoglycemic drugs; Z98.890 Other specified postprocedural states; Z98.0 Intestinal bypass and anastomosis status; Z90.49 Acquired absence of other specified parts of digestive tract; Z85.038 Personal history of other malignant neoplasm of large intestine; Z80.1 Family history of malignant neoplasm of trachea, bronchus and lung; Z82.49 Family history of ischemic heart disease and other diseases of the circulatory system
CPT/HCPCS: 45378; 82948; J2003; J2704; J7120